=== PATIENT | female | born 1970 | race Caucasian/White ===

== ENCOUNTER → 2024-01-29 | Outpatient (CLI) | payer SELFPAY ==
[2024-01-29 12:31] LABS: Erythrocyte Sedimentation Rate 66 mm/hr (0-30)
[2024-01-29 12:40] LABS: Absolute Lymphocyte Count 2.35 X10^3/uL (0.83-4.51); Absolute Neutrophil Count 4.9 X10^3/uL (2.0-7.7); Basophil# 0.03 X10^3/uL; Basophil% 0.4 % (0-1); Eosinophil# 0.04 X10^3/uL; Eosinophils% 0.5 % (0-5); Hematocrit 37.3 % (37-47); Hemoglobin 11.7 g/dL (12.0-15.0); Lymphocyte # 2.35 X10^3/ul (0.83-4.51); Lymphocyte % 29.4 % (19-41); Mean Corp Hgb Conc 31.4 g/dL (32-36); Mean Corpuscular Hgb 25.9 pg (27.0-32.0); Mean Corpuscular Volume 82.7 fL (81-99); Mean Platelet Vol. 8.7 fl (6.2-12.0); Monocyte# 0.63 X10^3/uL; Monocyte% 7.9 % (0-10); NRBC Flagged by Analyzer 0 % (0-5); Neutrophil % 61.4 % (47-70); Platelet Count 384 K/mm3 (150-450); RBC Distribution Width SD 45.5 fl (35.1-43.9); RET-HE 29.1 pg (30-35); Red Blood Count 4.51 M/mm3 (4.2-5.4); Reticulocyte Count 1.67 % (0.5-1.5)
[2024-01-29 14:24] LABS: ALB/GLOB Ratio 0.5 RATIO (0.9-2.4); AST(SGOT) 39 U/L (15-37); Alanine Aminotransfer ALT/SGPT 62 U/L (13-56); Albumin, Serum 2.9 g/dL (3.2-5.0); Alkaline Phosphatase 104 U/L (45-117); Anion Gap 7 (5-15); BUN 14 mg/dL (7-18); BUN/Creat Ratio 22.7 RATIO (10-20); Calcium,Total 9.6 mg/dL (8.5-10.1); Chloride 106 mmol/L (98-107); Creatinine, Serum 0.62 mg/dL (0.55-1.02); EST Glomerular Filtration Rate 108 mL/min (>60); Est Glom Filt Rate - Afr Amer 131 mL/min (>60); Globulin 6.2 g/dL (2.2-4.2); Glucose 104 mg/dL (74-106); LDH 145 U/L (84-246); Potassium 4.3 mmol/L (3.5-5.1); Protein, Total 9.1 g/dL (6.4-8.2); Rheumatoid Factor < 10.0 IU/mL (<15); Sodium Level 138 mmol/L (136-145)
[2024-01-30 12:09] LABS: CCP IgG Antibodies 7 units (0-19)
[2024-01-30 15:08] LABS: ANTINUCLEAR ANTIBODIES DIRECT Positive (Negative)
== END | disposition home or self-care (01) ==
PROVIDERS: PCP Family Medicine; Referring Provider Internal Medicine Rheumatology; Visit Provider Internal Medicine Rheumatology
DX: R70.0 Elevated erythrocyte sedimentation rate (principal); D50.9 Iron deficiency anemia, unspecified; K21.9 Gastro-esophageal reflux disease without esophagitis; I83.93 Asymptomatic varicose veins of bilateral lower extremities; Z87.19 Personal history of other diseases of the digestive system
CPT/HCPCS: 36415; 80053; 83615; 85025; 85045; 85652; 86038; 86140; 86200; 86431

== ENCOUNTER 2024-11-28 14:13 | Inpatient (IN) | payer OTHER, SELFPAY ==
[2024-11-28] VITALS (36 sets, daily range): BP systolic 83–114; BP diastolic 44–81; PULSE 74–186; RESP 16–36; TEMP 36–39.6; O2SAT 92–100; BMI 30.2; BMI 35.3
--- NOTE | 2024-11-28 14:29 | RAD_ITS ---
EXAM: XR Chest, 1 View CLINICAL INDICATION: COUGH TECHNIQUE: Frontal view of the chest. COMPARISON: No relevant prior studies available. FINDINGS: LUNGS AND PLEURAL SPACES: Unremarkable. No consolidation. No pneumothorax. HEART: Cardiomegaly without overt failure. MEDIASTINUM: Unremarkable. Normal mediastinal contour. BONES/JOINTS: Unremarkable. No acute fracture. RAD/Chest 1 View (Portable) IMPRESSION: Cardiomegaly without overt failure. Reading Location: [facility]
[2024-11-28] MEDS: Adenosine 6 MG/2 ML Syringe IV (14:41)
[2024-11-28] MEDS: 0.9% Normal Saline (1000mL) 1,000 ML 999 ML IV ×3 (14:42→16:52)
[2024-11-28] MEDS: Adenosine 6 MG/2 ML Syringe 12 MG IV ×2 (14:43→14:46)
[2024-11-28] MEDS: Acetaminophen 325 MG Tablet 650 MG PO (14:47)
--- NOTE | 2024-11-28 14:48 | EDS_ITS ---
HPI <Daniel Tyler MD - Last Filed: 11/29/24 23:46> History of Present Illness Chief Complaint: Palpitations Narrative Narrative: 54-year-old female who denies significant past medical history presents with multiple somatic complaints. She states she has not been feeling well for the last few weeks. She has occasional lightheadedness. No chest pain, no shortness of breath. She did note that today she started feeling heart palpitations and a racing heartbeat. She denies any dysuria or hematuria. She has had an occasional cough as well. It was today that she started experiencing fever and chills which brought her to the emergency department. PFSH <Daniel Tyler MD - Last Filed: 11/29/24 23:46> PFSH Medical History Hysterectomy planned Medical History no medical history Home Medications ?Medication ?Instructions ?Recorded ?Last Taken ?Type NK 11/28/24 Unknown History Allergy/AdvReac Type Severity Reaction Status Date / Time Sulfa (Sulfonamide Allergy Anaphylaxis Verified 11/28/24 14:20 Antibiotics) Family History Father Hypertension Brother Advanced cirrhosis of liver Family History no significant family his Social History household members: spouse and children housing: house Smoking Status: Never smoker ROS <Daniel Tyler MD - Last Filed: 11/29/24 23:46> ROS ED ROS Narrative Review of systems positive for heart palpitations starting today. Generalized malaise and fatigue with lightheadedness intermittently over the last few weeks. No chest pain. Occasional cough. No shortness of breath. No leg swelling. No dysuria or hematuria. EXAM <Daniel Tyler MD - Last Filed: 11/29/24 23:46> Physical Exam Narrative Exam Narrative: Positive fever, temperature elevated 103.2 ?F. Nontoxic-appearing. C ardiovascular examination reveals a regular tachycardia. Lungs are clear to auscultation bilaterally. Abdomen soft and nontender with normoactive bowel sounds. No guarding or rebound. Neurological examination nonfocal nonlateralizing. No pedal edema. Const Vital Signs: 11/28/24 14:14 11/28/24 14:20 11/28/24 14:20 Temperature 103.2 F H Temperature Source Oral Pulse Rate 186 H 185 H Pulse Rate [1 (Initial Baseline)] Pulse Rate [2] Pulse Rate [3] Pulse Rate [4] Pulse Rate [5] Pulse Rate [6] Respiratory Rate 36 H 31 H Respiratory Rate [1 (Initial Baseline)] Respiratory Rate [2] Respiratory Rate [3] Respiratory Rate [4] Respiratory Rate [5] Respiratory Rate [6] Respiratory Effort Normal Non-Labored Blood Pressure 83/58 L 94/58 L Blood Pressure [1 (Initial Baseline)] Blood Pressure [2] Blood Pressure [3] Blood Pressure [4] Blood Pressure [5] Blood Pressure [6] Blood Pressure Mean 66 70 Baseline BP Pulse Ox 92 93 Oxygen Delivery Method Room Air Oxygen Delivery Method [1 (Initial Baseline)] Oxygen Delivery Method [2] Oxygen Delivery Method [3] Oxygen Delivery Method [4] Oxygen Delivery Method [5] Oxygen Delivery Method [6] Oxygen Flow Rate (L/min) Oxygen Flow Rate (L/min) [1 (Initial Baseline)] Oxygen Flow Rate (L/min) [2] Oxygen Flow Rate (L/min) [3] Oxygen Flow Rate (L/min) [4] EtCo2 (Normal 35-45 , high quality CPR 10-20 & ROSC>/=40mmHg EtCo2 (Normal 35-45 , high quality CPR 10-20 & ROSC>/=40mmHg [1 (Initial Baseline)] EtCo2 (Normal 35-45 , high quality CPR 10-20 & ROSC>/=40mmHg [2] EtCo2 (Normal 35-45 , high quality CPR 10-20 & ROSC>/=40mmHg [3] EtCo2 (Normal 35-45 , high quality CPR 10-20 & ROSC>/=40mmHg [4] EtCo2 (Normal 35-45 , high quality CPR 10-20 & ROSC>/=40mmHg [5] EtCo2 (Normal 35-45 , high quality CPR 10-20 & ROSC>/=40mmHg [6] 11/28/24 14:40 11/28/24 14:41 11/28/24 14:59 Temperature Temperature Source Pulse Rate 144 H 144 H Pulse Rate [1 (Initial Baseline)] Pulse Rate [2] Pulse Rate [3] Pulse Rate [4] Pulse Rate [5] Pulse Rate [6] Respiratory Rate 25 H 23 H Respiratory Rate [1 (Initial Baseline)] Respiratory Rate [2] Respiratory Rate [3] Respiratory Rate [4] Respiratory Rate [5] Respiratory Rate [6] Respiratory Effort Blood Pressure 92/44 L 92/49 L Blood Pressure [1 (Initial Baseline)] Blood Pressure [2] Blood Pressure [3] Blood Pressure [4] Blood Pressure [5] Blood Pressure [6] Blood Pressure Mean 60 63 Baseline BP Pulse Ox 95 96 96 Oxygen Delivery Method Room Air Room Air Room Air Oxygen Delivery Method [1 (Initial Baseline)] Oxygen Delivery Method [2] Oxygen Delivery Method [3] Oxygen Delivery Method [4] Oxygen Delivery Method [5] Oxygen Delivery Method [6] Oxygen Flow Rate (L/min) Oxygen Flow Rate (L/min) [1 (Initial Baseline)] Oxygen Flow Rate (L/min) [2] Oxygen Flow Rate (L/min) [3] Oxygen Flow Rate (L/min) [4] EtCo2 (Normal 35-45 , high quality CPR 10-20 & ROSC>/=40mmHg EtCo2 (Normal 35-45 , high quality CPR 10-20 & ROSC>/=40mmHg [1 (Initial Baseline)] EtCo2 (Normal 35-45 , high quality CPR 10-20 & ROSC>/=40mmHg [2] EtCo2 (Normal 35-45 , high quality CPR 10-20 & ROSC>/=40mmHg [3] EtCo2 (Normal 35-45 , high quality CPR 10-20 & ROSC>/=40mmHg [4] EtCo2 (Normal 35-45 , high quality CPR 10-20 & ROSC>/=40mmHg [5] EtCo2 (Normal 35-45 , high quality CPR 10-20 & ROSC>/=40mmHg [6] 11/28/24 15:14 11/28/24 15:40 11/28/24 15:55 Temperature Temperature Source Pulse Rate 143 H 136 H 140 H Pulse Rate [1 (Initial Baseline)] Pulse Rate [2] Pulse Rate [3] Pulse Rate [4] Pulse Rate [5] Pulse Rate [6] Respiratory Rate 21 H 20 H Respiratory Rate [1 (Initial Baseline)] Respiratory Rate [2] Respiratory Rate [3] Respiratory Rate [4] Respiratory Rate [5] Respiratory Rate [6] Respiratory Effort Blood Pressure 90/61 95/54 L 99/59 L Blood Pressure [1 (Initial Baseline)] Blood Pressure [2] Blood Pressure [3] Blood Pressure [4] Blood Pressure [5] Blood Pressure [6] Blood Pressure Mean 70 67 72 Baseline BP Pulse Ox 96 97 Oxygen Delivery Method Room Air Room Air Oxygen Delivery Method [1 (Initial Baseline)] Oxygen Delivery Method [2] Oxygen Delivery Method [3] Oxygen Delivery Method [4] Oxygen Delivery Method [5] Oxygen Delivery Method [6] Oxygen Flow Rate (L/min) Oxygen Flow Rate (L/min) [1 (Initial Baseline)] Oxygen Flow Rate (L/min) [2] Oxygen Flow Rate (L/min) [3] Oxygen Flow Rate (L/min) [4] EtCo2 (Normal 35-45 , high quality CPR 10-20 & ROSC>/=40mmHg EtCo2 (Normal 35-45 , high quality CPR 10-20 & ROSC>/=40mmHg [1 (Initial Baseline)] EtCo2 (Normal 35-45 , high quality CPR 10-20 & ROSC>/=40mmHg [2] EtCo2 (Normal 35-45 , high quality CPR 10-20 & ROSC>/=40mmHg [3] EtCo2 (Normal 35-45 , high quality CPR 10-20 & ROSC>/=40mmHg [4] EtCo2 (Normal 35-45 , high quality CPR 10-20 & ROSC>/=40mmHg [5] EtCo2 (Normal 35-45 , high quality CPR 10-20 & ROSC>/=40mmHg [6] 11/28/24 16:00 11/28/24 17:00 11/28/24 17:09 Temperature 99.3 F H Temperature Source Pulse Rate 138 H 126 H 126 H Pulse Rate [1 (Initial Baseline)] Pulse Rate [2] Pulse Rate [3] Pulse Rate [4] Pulse Rate [5] Pulse Rate [6] Respiratory Rate 29 H 26 H 26 H Respiratory Rate [1 (Initial Baseline)] Respiratory Rate [2] Respiratory Rate [3] Respiratory Rate [4] Respiratory Rate [5] Respiratory Rate [6] Respiratory Effort Blood Pressure 98/57 L 84/53 L 84/53 L Blood Pressure [1 (Initial Baseline)] Blood Pressure [2] Blood Pressure [3] Blood Pressure [4] Blood Pressure [5] Blood Pressure [6] Blood Pressure Mean 70 63 63 Baseline BP Pulse Ox 96 98 98 Oxygen Delivery Method Oxygen Delivery Method [1 (Initial Baseline)] Oxygen Delivery Method [2] Oxygen Delivery Method [3] Oxygen Delivery Method [4] Oxygen Delivery Method [5] Oxygen Delivery Method [6] Oxygen Flow Rate (L/min) Oxygen Flow Rate (L/min) [1 (Initial Baseline)] Oxygen Flow Rate (L/min) [2] Oxygen Flow Rate (L/min) [3] Oxygen Flow Rate (L/min) [4] EtCo2 (Normal 35-45 , high quality CPR 10-20 & ROSC>/=40mmHg EtCo2 (Normal 35-45 , high quality CPR 10-20 & ROSC>/=40mmHg [1 (Initial Baseline)] EtCo2 (Normal 35-45 , high quality CPR 10-20 & ROSC>/=40mmHg [2] EtCo2 (Normal 35-45 , high quality CPR 10-20 & ROSC>/=40mmHg [3] EtCo2 (Normal 35-45 , high quality CPR 10-20 & ROSC>/=40mmHg [4] EtCo2 (Normal 35-45 , high quality CPR 10-20 & ROSC>/=40mmHg [5] EtCo2 (Normal 35-45 , high quality CPR 10-20 & ROSC>/=40mmHg [6] 11/28/24 17:10 11/28/24 17:35 11/28/24 17:36 Temperature 99.3 F H 99.3 F H Temperature Source Oral Pulse Rate 126 H 133 H Pulse Rate [1 (Initial Baseline)] 133 H Pulse Rate [2] 96 Pulse Rate [3] 95 Pulse Rate [4] 92 Pulse Rate [5] 82 Pulse Rate [6] 94 Respiratory Rate 26 H 16 Respiratory Rate [1 (Initial Baseline)] 16 Respiratory Rate [2] 21 H Respiratory Rate [3] 24 H Respiratory Rate [4] 22 H Respiratory Rate [5] 24 H Respiratory Rate [6] 20 H Respiratory Effort Blood Pressure 84/53 L 97/70 Blood Pressure [1 (Initial Baseline)] 97/70 Blood Pressure [2] 103/72 Blood Pressure [3] 99/71 Blood Pressure [4] 90/68 Blood Pressure [5] 93/63 Blood Pressure [6] 102/73 Blood Pressure Mean 63 Baseline BP 97/70 Pulse Ox 98 100 Oxygen Delivery Method Room Air Nasal Cannula Oxygen Delivery Method [1 (Initial Baseline)] Nasal Cannula Oxygen Delivery Method [2] Nasal Cannula Oxygen Delivery Method [3] Nasal Cannula Oxygen Delivery Method [4] Nasal Cannula Oxygen Delivery Method [5] Room Air Oxygen Delivery Method [6] Room Air Oxygen Flow Rate (L/min) 2 Oxygen Flow Rate (L/min) [1 (Initial Baseline)] 2 Oxygen Flow Rate (L/min) [2] 2 Oxygen Flow Rate (L/min) [3] 2 Oxygen Flow Rate (L/min) [4] 2 EtCo2 (Normal 35-45 , high quality CPR 10-20 & ROSC>/=40mmHg 18 EtCo2 (Normal 35-45 , high quality CPR 10-20 & ROSC>/=40mmHg [1 (Initial Baseline)] 18 EtCo2 (Normal 35-45 , high quality CPR 10-20 & ROSC>/=40mmHg [2] 30 EtCo2 (Normal 35-45 , high quality CPR 10-20 & ROSC>/=40mmHg [3] 28 EtCo2 (Normal 35-45 , high quality CPR 10-20 & ROSC>/=40mmHg [4] 29 EtCo2 (Normal 35-45 , high quality CPR 10-20 & ROSC>/=40mmHg [5] 29 EtCo2 (Normal 35-45 , high quality CPR 10-20 & ROSC>/=40mmHg [6] 28 11/28/24 18:00 11/28/24 18:06 11/28/24 18:10 Temperature Temperature Source Pulse Rate 92 91 87 Pulse Rate [1 (Initial Baseline)] Pulse Rate [2] Pulse Rate [3] Pulse Rate [4] Pulse Rate [5] Pulse Rate [6] Respiratory Rate 22 H 23 H 21 H Respiratory Rate [1 (Initial Baseline)] Respiratory Rate [2] Respiratory Rate [3] Respiratory Rate [4] Respiratory Rate [5] Respiratory Rate [6] Respiratory Effort Blood Pressure 94/68 94/68 98/68 Blood Pressure [1 (Initial Baseline)] Blood Pressure [2] Blood Pressure [3] Blood Pressure [4] Blood Pressure [5] Blood Pressure [6] Blood Pressure Mean 76 Baseline BP Pulse Ox 98 98 100 Oxygen Delivery Method Room Air Room Air Oxygen Delivery Method [1 (Initial Baseline)] Oxygen Delivery Method [2] Oxygen Delivery Method [3] Oxygen Delivery Method [4] Oxygen Delivery Method [5] Oxygen Delivery Method [6] Oxygen Flow Rate (L/min) Oxygen Flow Rate (L/min) [1 (Initial Baseline)] Oxygen Flow Rate (L/min) [2] Oxygen Flow Rate (L/min) [3] Oxygen Flow Rate (L/min) [4] EtCo2 (Normal 35-45 , high quality CPR 10-20 & ROSC>/=40mmHg 28 24 EtCo2 (Normal 35-45 , high quality CPR 10-20 & ROSC>/=40mmHg [1 (Initial Baseline)] EtCo2 (Normal 35-45 , high quality CPR 10-20 & ROSC>/=40mmHg [2] EtCo2 (Normal 35-45 , high quality CPR 10-20 & ROSC>/=40mmHg [3] EtCo2 (Normal 35-45 , high quality CPR 10-20 & ROSC>/=40mmHg [4] EtCo2 (Normal 35-45 , high quality CPR 10-20 & ROSC>/=40mmHg [5] EtCo2 (Normal 35-45 , high quality CPR 10-20 & ROSC>/=40mmHg [6] 11/28/24 18:14 11/28/24 18:15 11/28/24 18:29 Temperature 99.3 F H 98.1 F Temperature Source Oral Oral Pulse Rate 96 97 92 Pulse Rate [1 (Initial Baseline)] Pulse Rate [2] Pulse Rate [3] Pulse Rate [4] Pulse Rate [5] Pulse Rate [6] Respiratory Rate 22 H 21 H 18 Respiratory Rate [1 (Initial Baseline)] Respiratory Rate [2] Respiratory Rate [3] Respiratory Rate [4] Respiratory Rate [5] Respiratory Rate [6] Respiratory Effort Blood Pressure 98/68 103/76 85/67 L Blood Pressure [1 (Initial Baseline)] Blood Pressure [2] Blood Pressure [3] Blood Pressure [4] Blood Pressure [5] Blood Pressure [6] Blood Pressure Mean 78 73 Baseline BP Pulse Ox 98 98 98 Oxygen Delivery Method Room Air Room Air Room Air Oxygen Delivery Method [1 (Initial Baseline)] Oxygen Delivery Method [2] Oxygen Delivery Method [3] Oxygen Delivery Method [4] Oxygen Delivery Method [5] Oxygen Delivery Method [6] Oxygen Flow Rate (L/min) Oxygen Flow Rate (L/min) [1 (Initial Baseline)] Oxygen Flow Rate (L/min) [2] Oxygen Flow Rate (L/min) [3] Oxygen Flow Rate (L/min) [4] EtCo2 (Normal 35-45 , high quality CPR 10-20 & ROSC>/=40mmHg 33 EtCo2 (Normal 35-45 , high quality CPR 10-20 & ROSC>/=40mmHg [1 (Initial Baseline)] EtCo2 (Normal 35-45 , high quality CPR 10-20 & ROSC>/=40mmHg [2] EtCo2 (Normal 35-45 , high quality CPR 10-20 & ROSC>/=40mmHg [3] EtCo2 (Normal 35-45 , high quality CPR 10-20 & ROSC>/=40mmHg [4] EtCo2 (Normal 35-45 , high quality CPR 10-20 & ROSC>/=40mmHg [5] EtCo2 (Normal 35-45 , high quality CPR 10-20 & ROSC>/=40mmHg [6] 11/28/24 18:43 11/28/24 18:44 11/28/24 18:59 Temperature 98.1 F 98.1 F Temperature Source Oral Oral Pulse Rate 91 83 82 Pulse Rate [1 (Initial Baseline)] Pulse Rate [2] Pulse Rate [3] Pulse Rate [4] Pulse Rate [5] Pulse Rate [6] Respiratory Rate 24 H 25 H 21 H Respiratory Rate [1 (Initial Baseline)] Respiratory Rate [2] Respiratory Rate [3] Respiratory Rate [4] Respiratory Rate [5] Respiratory Rate [6] Respiratory Effort Blood Pressure 114/81 H 91/59 L 83/59 L Blood Pressure [1 (Initial Baseline)] Blood Pressure [2] Blood Pressure [3] Blood Pressure [4] Blood Pressure [5] Blood Pressure [6] Blood Pressure Mean 92 69 67 Baseline BP Pulse Ox 98 99 99 Oxygen Delivery Method Room Air Room Air Oxygen Delivery Method [1 (Initial Baseline)] Oxygen Delivery Method [2] Oxygen Delivery Method [3] Oxygen Delivery Method [4] Oxygen Delivery Method [5] Oxygen Delivery Method [6] Oxygen Flow Rate (L/min) Oxygen Flow Rate (L/min) [1 (Initial Baseline)] Oxygen Flow Rate (L/min) [2] Oxygen Flow Rate (L/min) [3] Oxygen Flow Rate (L/min) [4] EtCo2 (Normal 35-45 , high quality CPR 10-20 & ROSC>/=40mmHg EtCo2 (Normal 35-45 , high quality CPR 10-20 & ROSC>/=40mmHg [1 (Initial Baseline)] EtCo2 (Normal 35-45 , high quality CPR 10-20 & ROSC>/=40mmHg [2] EtCo2 (Normal 35-45 , high quality CPR 10-20 & ROSC>/=40mmHg [3] EtCo2 (Normal 35-45 , high quality CPR 10-20 & ROSC>/=40mmHg [4] EtCo2 (Normal 35-45 , high quality CPR 10-20 & ROSC>/=40mmHg [5] EtCo2 (Normal 35-45 , high quality CPR 10-20 & ROSC>/=40mmHg [6] 11/28/24 19:00 Temperature Temperature Source Pulse Rate 84 Pulse Rate [1 (Initial Baseline)] Pulse Rate [2] Pulse Rate [3] Pulse Rate [4] Pulse Rate [5] Pulse Rate [6] Respiratory Rate 18 Respiratory Rate [1 (Initial Baseline)] Respiratory Rate [2] Respiratory Rate [3] Respiratory Rate [4] Respiratory Rate [5] Respiratory Rate [6] Respiratory Effort Blood Pressure 84/58 L Blood Pressure [1 (Initial Baseline)] Blood Pressure [2] Blood Pressure [3] Blood Pressure [4] Blood Pressure [5] Blood Pressure [6] Blood Pressure Mean 66 Baseline BP Pulse Ox 98 Oxygen Delivery Method Room Air Oxygen Delivery Method [1 (Initial Baseline)] Oxygen Delivery Method [2] Oxygen Delivery Method [3] Oxygen Delivery Method [4] Oxygen Delivery Method [5] Oxygen Delivery Method [6] Oxygen Flow Rate (L/min) Oxygen Flow Rate (L/min) [1 (Initial Baseline)] Oxygen Flow Rate (L/min) [2] Oxygen Flow Rate (L/min) [3] Oxygen Flow Rate (L/min) [4] EtCo2 (Normal 35-45 , high quality CPR 10-20 & ROSC>/=40mmHg EtCo2 (Normal 35-45 , high quality CPR 10-20 & ROSC>/=40mmHg [1 (Initial Baseline)] EtCo2 (Normal 35-45 , high quality CPR 10-20 & ROSC>/=40mmHg [2] EtCo2 (Normal 35-45 , high quality CPR 10-20 & ROSC>/=40mmHg [3] EtCo2 (Normal 35-45 , high quality CPR 10-20 & ROSC>/=40mmHg [4] EtCo2 (Normal 35-45 , high quality CPR 10-20 & ROSC>/=40mmHg [5] EtCo2 (Normal 35-45 , high quality CPR 10-20 & ROSC>/=40mmHg [6] <Dr. Garland Navarrete, DO - Last Filed: 11/28/24 23:08> Physical Exam Const Vital Signs: 11/28/24 14:14 11/28/24 14:20 11/28/24 14:20 Temperature 103.2 F H Temperature Source Oral Pulse Rate 186 H 185 H Pulse Rate [1 (Initial Baseline)] Pulse Rate [2] Pulse Rate [3] Pulse Rate [4] Pulse Rate [5] Pulse Rate [6] Respiratory Rate 36 H 31 H Respiratory Rate [1 (Initial Baseline)] Respiratory Rate [2] Respiratory Rate [3] Respiratory Rate [4] Respiratory Rate [5] Respiratory Rate [6] Respiratory Effort Normal Non-Labored Blood Pressure 83/58 L 94/58 L Blood Pressure [1 (Initial Baseline)] Blood Pressure [2] Blood Pressure [3] Blood Pressure [4] Blood Pressure [5] Blood Pressure [6] Blood Pressure Mean 66 70 Baseline BP Pulse Ox 92 93 Oxygen Delivery Method Room Air Oxygen Delivery Method [1 (Initial Baseline)] Oxygen Delivery Method [2] Oxygen Delivery Method [3] Oxygen Delivery Method [4] Oxygen Delivery Method [5] Oxygen Delivery Method [6] Oxygen Flow Rate (L/min) Oxygen Flow Rate (L/min) [1 (Initial Baseline)] Oxygen Flow Rate (L/min) [2] Oxygen Flow Rate (L/min) [3] Oxygen Flow Rate (L/min) [4] EtCo2 (Normal 35-45 , high quality CPR 10-20 & ROSC>/=40mmHg EtCo2 (Normal 35-45 , high quality CPR 10-20 & ROSC>/=40mmHg [1 (Initial Baseline)] EtCo2 (Normal 35-45 , high quality CPR 10-20 & ROSC>/=40mmHg [2] EtCo2 (Normal 35-45 , high quality CPR 10-20 & ROSC>/=40mmHg [3] EtCo2 (Normal 35-45 , high quality CPR 10-20 & ROSC>/=40mmHg [4] EtCo2 (Normal 35-45 , high quality CPR 10-20 & ROSC>/=40mmHg [5] EtCo2 (Normal 35-45 , high quality CPR 10-20 & ROSC>/=40mmHg [6] 11/28/24 14:40 11/28/24 14:41 11/28/24 14:59 Temperature Temperature Source Pulse Rate 144 H 144 H Pulse Rate [1 (Initial Baseline)] Pulse Rate [2] Pulse Rate [3] Pulse Rate [4] Pulse Rate [5] Pulse Rate [6] Respiratory Rate 25 H 23 H Respiratory Rate [1 (Initial Baseline)] Respiratory Rate [2] Respiratory Rate [3] Respiratory Rate [4] Respiratory Rate [5] Respiratory Rate [6] Respiratory Effort Blood Pressure 92/44 L 92/49 L Blood Pressure [1 (Initial Baseline)] Blood Pressure [2] Blood Pressure [3] Blood Pressure [4] Blood Pressure [5] Blood Pressure [6] Blood Pressure Mean 60 63 Baseline BP Pulse Ox 95 96 96 Oxygen Delivery Method Room Air Room Air Room Air Oxygen Delivery Method [1 (Initial Baseline)] Oxygen Delivery Method [2] Oxygen Delivery Method [3] Oxygen Delivery Method [4] Oxygen Delivery Method [5] Oxygen Delivery Method [6] Oxygen Flow Rate (L/min) Oxygen Flow Rate (L/min) [1 (Initial Baseline)] Oxygen Flow Rate (L/min) [2] Oxygen Flow Rate (L/min) [3] Oxygen Flow Rate (L/min) [4] EtCo2 (Normal 35-45 , high quality CPR 10-20 & ROSC>/=40mmHg EtCo2 (Normal 35-45 , high quality CPR 10-20 & ROSC>/=40mmHg [1 (Initial Baseline)] EtCo2 (Normal 35-45 , high quality CPR 10-20 & ROSC>/=40mmHg [2] EtCo2 (Normal 35-45 , high quality CPR 10-20 & ROSC>/=40mmHg [3] EtCo2 (Normal 35-45 , high quality CPR 10-20 & ROSC>/=40mmHg [4] EtCo2 (Normal 35-45 , high quality CPR 10-20 & ROSC>/=40mmHg [5] EtCo2 (Normal 35-45 , high quality CPR 10-20 & ROSC>/=40mmHg [6] 11/28/24 15:14 11/28/24 15:40 11/28/24 15:55 Temperature Temperature Source Pulse Rate 143 H 136 H 140 H Pulse Rate [1 (Initial Baseline)] Pulse Rate [2] Pulse Rate [3] Pulse Rate [4] Pulse Rate [5] Pulse Rate [6] Respiratory Rate 21 H 20 H Respiratory Rate [1 (Initial Baseline)] Respiratory Rate [2] Respiratory Rate [3] Respiratory Rate [4] Respiratory Rate [5] Respiratory Rate [6] Respiratory Effort Blood Pressure 90/61 95/54 L 99/59 L Blood Pressure [1 (Initial Baseline)] Blood Pressure [2] Blood Pressure [3] Blood Pressure [4] Blood Pressure [5] Blood Pressure [6] Blood Pressure Mean 70 67 72 Baseline BP Pulse Ox 96 97 Oxygen Delivery Method Room Air Room Air Oxygen Delivery Method [1 (Initial Baseline)] Oxygen Delivery Method [2] Oxygen Delivery Method [3] Oxygen Delivery Method [4] Oxygen Delivery Method [5] Oxygen Delivery Method [6] Oxygen Flow Rate (L/min) Oxygen Flow Rate (L/min) [1 (Initial Baseline)] Oxygen Flow Rate (L/min) [2] Oxygen Flow Rate (L/min) [3] Oxygen Flow Rate (L/min) [4] EtCo2 (Normal 35-45 , high quality CPR 10-20 & ROSC>/=40mmHg EtCo2 (Normal 35-45 , high quality CPR 10-20 & ROSC>/=40mmHg [1 (Initial Baseline)] EtCo2 (Normal 35-45 , high quality CPR 10-20 & ROSC>/=40mmHg [2] EtCo2 (Normal 35-45 , high quality CPR 10-20 & ROSC>/=40mmHg [3] EtCo2 (Normal 35-45 , high quality CPR 10-20 & ROSC>/=40mmHg [4] EtCo2 (Normal 35-45 , high quality CPR 10-20 & ROSC>/=40mmHg [5] EtCo2 (Normal 35-45 , high quality CPR 10-20 & ROSC>/=40mmHg [6] 11/28/24 16:00 11/28/24 17:00 11/28/24 17:09 Temperature 99.3 F H Temperature Source Pulse Rate 138 H 126 H 126 H Pulse Rate [1 (Initial Baseline)] Pulse Rate [2] Pulse Rate [3] Pulse Rate [4] Pulse Rate [5] Pulse Rate [6] Respiratory Rate 29 H 26 H 26 H Respiratory Rate [1 (Initial Baseline)] Respiratory Rate [2] Respiratory Rate [3] Respiratory Rate [4] Respiratory Rate [5] Respiratory Rate [6] Respiratory Effort Blood Pressure 98/57 L 84/53 L 84/53 L Blood Pressure [1 (Initial Baseline)] Blood Pressure [2] Blood Pressure [3] Blood Pressure [4] Blood Pressure [5] Blood Pressure [6] Blood Pressure Mean 70 63 63 Baseline BP Pulse Ox 96 98 98 Oxygen Delivery Method Oxygen Delivery Method [1 (Initial Baseline)] Oxygen Delivery Method [2] Oxygen Delivery Method [3] Oxygen Delivery Method [4] Oxygen Delivery Method [5] Oxygen Delivery Method [6] Oxygen Flow Rate (L/min) Oxygen Flow Rate (L/min) [1 (Initial Baseline)] Oxygen Flow Rate (L/min) [2] Oxygen Flow Rate (L/min) [3] Oxygen Flow Rate (L/min) [4] EtCo2 (Normal 35-45 , high quality CPR 10-20 & ROSC>/=40mmHg EtCo2 (Normal 35-45 , high quality CPR 10-20 & ROSC>/=40mmHg [1 (Initial Baseline)] EtCo2 (Normal 35-45 , high quality CPR 10-20 & ROSC>/=40mmHg [2] EtCo2 (Normal 35-45 , high quality CPR 10-20 & ROSC>/=40mmHg [3] EtCo2 (Normal 35-45 , high quality CPR 10-20 & ROSC>/=40mmHg [4] EtCo2 (Normal 35-45 , high quality CPR 10-20 & ROSC>/=40mmHg [5] EtCo2 (Normal 35-45 , high quality CPR 10-20 & ROSC>/=40mmHg [6] 11/28/24 17:10 11/28/24 17:35 11/28/24 17:36 Temperature 99.3 F H 99.3 F H Temperature Source Oral Pulse Rate 126 H 133 H Pulse Rate [1 (Initial Baseline)] 133 H Pulse Rate [2] 96 Pulse Rate [3] 95 Pulse Rate [4] 92 Pulse Rate [5] 82 Pulse Rate [6] 94 Respiratory Rate 26 H 16 Respiratory Rate [1 (Initial Baseline)] 16 Respiratory Rate [2] 21 H Respiratory Rate [3] 24 H Respiratory Rate [4] 22 H Respiratory Rate [5] 24 H Respiratory Rate [6] 20 H Respiratory Effort Blood Pressure 84/53 L 97/70 Blood Pressure [1 (Initial Baseline)] 97/70 Blood Pressure [2] 103/72 Blood Pressure [3] 99/71 Blood Pressure [4] 90/68 Blood Pressure [5] 93/63 Blood Pressure [6] 102/73 Blood Pressure Mean 63 Baseline BP 97/70 Pulse Ox 98 100 Oxygen Delivery Method Room Air Nasal Cannula Oxygen Delivery Method [1 (Initial Baseline)] Nasal Cannula Oxygen Delivery Method [2] Nasal Cannula Oxygen Delivery Method [3] Nasal Cannula Oxygen Delivery Method [4] Nasal Cannula Oxygen Delivery Method [5] Room Air Oxygen Delivery Method [6] Room Air Oxygen Flow Rate (L/min) 2 Oxygen Flow Rate (L/min) [1 (Initial Baseline)] 2 Oxygen Flow Rate (L/min) [2] 2 Oxygen Flow Rate (L/min) [3] 2 Oxygen Flow Rate (L/min) [4] 2 EtCo2 (Normal 35-45 , high quality CPR 10-20 & ROSC>/=40mmHg 18 EtCo2 (Normal 35-45 , high quality CPR 10-20 & ROSC>/=40mmHg [1 (Initial Baseline)] 18 EtCo2 (Normal 35-45 , high quality CPR 10-20 & ROSC>/=40mmHg [2] 30 EtCo2 (Normal 35-45 , high quality CPR 10-20 & ROSC>/=40mmHg [3] 28 EtCo2 (Normal 35-45 , high quality CPR 10-20 & ROSC>/=40mmHg [4] 29 EtCo2 (Normal 35-45 , high quality CPR 10-20 & ROSC>/=40mmHg [5] 29 EtCo2 (Normal 35-45 , high quality CPR 10-20 & ROSC>/=40mmHg [6] 28 11/28/24 18:00 11/28/24 18:06 11/28/24 18:10 Temperature Temperature Source Pulse Rate 92 91 87 Pulse Rate [1 (Initial Baseline)] Pulse Rate [2] Pulse Rate [3] Pulse Rate [4] Pulse Rate [5] Pulse Rate [6] Respiratory Rate 22 H 23 H 21 H Respiratory Rate [1 (Initial Baseline)] Respiratory Rate [2] Respiratory Rate [3] Respiratory Rate [4] Respiratory Rate [5] Respiratory Rate [6] Respiratory Effort Blood Pressure 94/68 94/68 98/68 Blood Pressure [1 (Initial Baseline)] Blood Pressure [2] Blood Pressure [3] Blood Pressure [4] Blood Pressure [5] Blood Pressure [6] Blood Pressure Mean 76 Baseline BP Pulse Ox 98 98 100 Oxygen Delivery Method Room Air Room Air Oxygen Delivery Method [1 (Initial Baseline)] Oxygen Delivery Method [2] Oxygen Delivery Method [3] Oxygen Delivery Method [4] Oxygen Delivery Method [5] Oxygen Delivery Method [6] Oxygen Flow Rate (L/min) Oxygen Flow Rate (L/min) [1 (Initial Baseline)] Oxygen Flow Rate (L/min) [2] Oxygen Flow Rate (L/min) [3] Oxygen Flow Rate (L/min) [4] EtCo2 (Normal 35-45 , high quality CPR 10-20 & ROSC>/=40mmHg 28 24 EtCo2 (Normal 35-45 , high quality CPR 10-20 & ROSC>/=40mmHg [1 (Initial Baseline)] EtCo2 (Normal 35-45 , high quality CPR 10-20 & ROSC>/=40mmHg [2] EtCo2 (Normal 35-45 , high quality CPR 10-20 & ROSC>/=40mmHg [3] EtCo2 (Normal 35-45 , high quality CPR 10-20 & ROSC>/=40mmHg [4] EtCo2 (Normal 35-45 , high quality CPR 10-20 & ROSC>/=40mmHg [5] EtCo2 (Normal 35-45 , high quality CPR 10-20 & ROSC>/=40mmHg [6] 11/28/24 18:14 11/28/24 18:15 11/28/24 18:29 Temperature 99.3 F H 98.1 F Temperature Source Oral Oral Pulse Rate 96 97 92 Pulse Rate [1 (Initial Baseline)] Pulse Rate [2] Pulse Rate [3] Pulse Rate [4] Pulse Rate [5] Pulse Rate [6] Respiratory Rate 22 H 21 H 18 Respiratory Rate [1 (Initial Baseline)] Respiratory Rate [2] Respiratory Rate [3] Respiratory Rate [4] Respiratory Rate [5] Respiratory Rate [6] Respiratory Effort Blood Pressure 98/68 103/76 85/67 L Blood Pressure [1 (Initial Baseline)] Blood Pressure [2] Blood Pressure [3] Blood Pressure [4] Blood Pressure [5] Blood Pressure [6] Blood Pressure Mean 78 73 Baseline BP Pulse Ox 98 98 98 Oxygen Delivery Method Room Air Room Air Room Air Oxygen Delivery Method [1 (Initial Baseline)] Oxygen Delivery Method [2] Oxygen Delivery Method [3] Oxygen Delivery Method [4] Oxygen Delivery Method [5] Oxygen Delivery Method [6] Oxygen Flow Rate (L/min) Oxygen Flow Rate (L/min) [1 (Initial Baseline)] Oxygen Flow Rate (L/min) [2] Oxygen Flow Rate (L/min) [3] Oxygen Flow Rate (L/min) [4] EtCo2 (Normal 35-45 , high quality CPR 10-20 & ROSC>/=40mmHg 33 EtCo2 (Normal 35-45 , high quality CPR 10-20 & ROSC>/=40mmHg [1 (Initial Baseline)] EtCo2 (Normal 35-45 , high quality CPR 10-20 & ROSC>/=40mmHg [2] EtCo2 (Normal 35-45 , high quality CPR 10-20 & ROSC>/=40mmHg [3] EtCo2 (Normal 35-45 , high quality CPR 10-20 & ROSC>/=40mmHg [4] EtCo2 (Normal 35-45 , high quality CPR 10-20 & ROSC>/=40mmHg [5] EtCo2 (Normal 35-45 , high quality CPR 10-20 & ROSC>/=40mmHg [6] 11/28/24 18:43 11/28/24 18:44 11/28/24 18:59 Temperature 98.1 F 98.1 F Temperature Source Oral Oral Pulse Rate 91 83 82 Pulse Rate [1 (Initial Baseline)] Pulse Rate [2] Pulse Rate [3] Pulse Rate [4] Pulse Rate [5] Pulse Rate [6] Respiratory Rate 24 H 25 H 21 H Respiratory Rate [1 (Initial Baseline)] Respiratory Rate [2] Respiratory Rate [3] Respiratory Rate [4] Respiratory Rate [5] Respiratory Rate [6] Respiratory Effort Blood Pressure 114/81 H 91/59 L 83/59 L Blood Pressure [1 (Initial Baseline)] Blood Pressure [2] Blood Pressure [3] Blood Pressure [4] Blood Pressure [5] Blood Pressure [6] Blood Pressure Mean 92 69 67 Baseline BP Pulse Ox 98 99 99 Oxygen Delivery Method Room Air Room Air Oxygen Delivery Method [1 (Initial Baseline)] Oxygen Delivery Method [2] Oxygen Delivery Method [3] Oxygen Delivery Method [4] Oxygen Delivery Method [5] Oxygen Delivery Method [6] Oxygen Flow Rate (L/min) Oxygen Flow Rate (L/min) [1 (Initial Baseline)] Oxygen Flow Rate (L/min) [2] Oxygen Flow Rate (L/min) [3] Oxygen Flow Rate (L/min) [4] EtCo2 (Normal 35-45 , high quality CPR 10-20 & ROSC>/=40mmHg EtCo2 (Normal 35-45 , high quality CPR 10-20 & ROSC>/=40mmHg [1 (Initial Baseline)] EtCo2 (Normal 35-45 , high quality CPR 10-20 & ROSC>/=40mmHg [2] EtCo2 (Normal 35-45 , high quality CPR 10-20 & ROSC>/=40mmHg [3] EtCo2 (Normal 35-45 , high quality CPR 10-20 & ROSC>/=40mmHg [4] EtCo2 (Normal 35-45 , high quality CPR 10-20 & ROSC>/=40mmHg [5] EtCo2 (Normal 35-45 , high quality CPR 10-20 & ROSC>/=40mmHg [6] 11/28/24 19:00 Temperature Temperature Source Pulse Rate 84 Pulse Rate [1 (Initial Baseline)] Pulse Rate [2] Pulse Rate [3] Pulse Rate [4] Pulse Rate [5] Pulse Rate [6] Respiratory Rate 18 Respiratory Rate [1 (Initial Baseline)] Respiratory Rate [2] Respiratory Rate [3] Respiratory Rate [4] Respiratory Rate [5] Respiratory Rate [6] Respiratory Effort Blood Pressure 84/58 L Blood Pressure [1 (Initial Baseline)] Blood Pressure [2] Blood Pressure [3] Blood Pressure [4] Blood Pressure [5] Blood Pressure [6] Blood Pressure Mean 66 Baseline BP Pulse Ox 98 Oxygen Delivery Method Room Air Oxygen Delivery Method [1 (Initial Baseline)] Oxygen Delivery Method [2] Oxygen Delivery Method [3] Oxygen Delivery Method [4] Oxygen Delivery Method [5] Oxygen Delivery Method [6] Oxygen Flow Rate (L/min) Oxygen Flow Rate (L/min) [1 (Initial Baseline)] Oxygen Flow Rate (L/min) [2] Oxygen Flow Rate (L/min) [3] Oxygen Flow Rate (L/min) [4] EtCo2 (Normal 35-45 , high quality CPR 10-20 & ROSC>/=40mmHg EtCo2 (Normal 35-45 , high quality CPR 10-20 & ROSC>/=40mmHg [1 (Initial Baseline)] EtCo2 (Normal 35-45 , high quality CPR 10-20 & ROSC>/=40mmHg [2] EtCo2 (Normal 35-45 , high quality CPR 10-20 & ROSC>/=40mmHg [3] EtCo2 (Normal 35-45 , high quality CPR 10-20 & ROSC>/=40mmHg [4] EtCo2 (Normal 35-45 , high quality CPR 10-20 & ROSC>/=40mmHg [5] EtCo2 (Normal 35-45 , high quality CPR 10-20 & ROSC>/=40mmHg [6] Sepsis Attestation <Daniel Tyler MD - Last Filed: 11/29/24 23:46> Sepsis Alert: Yes Sepsis Attestation: Agree w/Sepsis Date exam was performed: 11/28/24 Time exam was performed: 16:42 Possible Source of Sepsis: Unknown Sepsis Organ Dysfunction Criteria Present: SBP < 90 mmHg or MAP < 65 mmHg and Lactic Acid > 2 mmol/L Fluid Resuscitation Fluid resuscitation indicated?: Yes Fluid Resuscitation ordered: 30 ml/kg fluid bolus ordered MDM <Daniel Tyler MD - Last Filed: 11/29/24 23:46> [facility] Narrative Medical decision making narrative: Initial EKG was obtained and it shows supraventricular tachycardia. SVT is in the differential paroxysmally. Given her fever, concern is for sepsis secondary to UTI versus pneumonia versus viral infection. Her initial EKG interpreted by myself independently demonstrates supraventricular tachycardia [address] changes. QRS duration normal at 82 ms. Initially she was given 6 mg of adenosine intravenously after being placed on the pacer pads. Underlying rhythm was transiently normal sinus on the monitor. She received 2 additional doses of 12 mg and had temporarily reduction to as low as the 100 bpm which appeared normal sinus on the monitor, but currently is 144 beats per minute. Her blood pressure slightly improved as she was hypotensive initially. She will be bolused normal saline. Repeat EKG after adenosine shows on my independent interpretation supraventricular t achycardia [address] changes. No STEMI. I discussed patient with Dr. Jackson. In review of the EKGs, it was thought that maybe the second EKG is more atrial flutter with 2-1 block. I reviewed her laboratory work and she has a white count elevated at 18.3 with hemoglobin 11.5, hematocrit 33.9, platelet count 308. Coagulation studies are negative. Sodium low at 132 with normal chloride of 99, potassium 3.5. BUN of 21 and creatinine 0.81, glucose appropriately elevated at 143 with an anion gap of 15. LFTs are slightly elevated which I think is nonspecific, but may be from shock liver. High-sensitivity troponin is elevated at 124. I do feel that she may have been in tachycardia for longer than a day. She is not having chest pain. I discussed this with cardiology and heparinization is not suggested. Lactic acid is elevated at 2.7. Chest x-ray 1 view interpreted by myself independently shows no pneumonia or pneumothorax. I reviewed the radiology report which confirms my independent interpretation and comments on cardiomegaly without overt heart failure. Review of her respiratory swab shows she is negative for COVID, influenza, and RSV. In discussion with cardiology, it was suggested that she be given more fluids, and then additionally with her blood pressure being 99 systolic or close to 100, they would like Cardizem 10 mg given. If the patient has a significant drop in her blood pressure after Cardizem with no slowing of her heart rate, it was suggested that she should be cardioverted. Patient is more fluid responsive. Her heart rate is coming down to the 120's, but she remains hypotensive with a soft blood pressure ranging in the high 90s. While it has been as low as the 80s, she is asymptomatic, and she has an MAP of 64. Patient will be discussed with the hospitalist for admission to the ICU. I feel that with a pulse in the 120s, that given her hypotension the Cardizem should be held. I discussed patient with Dr. Xena Harris. Patient will be given fentanyl and ketamine and cardioverted. Once again, I do feel this is more of an emergent procedure. 200 J delivered during synchronized cardioversion. Resulting EKG after cardioversion demonstrates normal sinus rhythm at 94 bpm without ectopy or acute ST changes. No STEMI. I reviewed her repeat troponin as well and it is slightly elevated at 145. I had discussed the troponin initially with Dr. Jackson with cardiology and it was not felt that she should be heparinized. Patient tolerated procedure well. Disposition is admit to the ICU. Patient is in guarded condition. Update: While waiting to go to the ICU the patient valencia rate less than 65 nursing notified me of the potential need for central line because she has completed the IV fluid boluses. I assessed the patient and her pressures were borderline at that moment of a mean of around 70-65. Patient provided informed written consent for ultrasound-guided right IJ central line. Patient was prepped and u ltrasound was used to identify the internal jugular. Using the modified Seldinger technique a right IJ triple-lumen line was placed on the first attempt without any difficulty. Dark red nonpulsatile blood was obtained. Was sutured in place. Dressing applied. My independent interpretation of the post procedure films is no pneumothorax and adequate placement of the central line. No further bleeding from the site was noted. Line was approved for use. Hospitalist (Dr. Mcdaniel) was updated. History & Record Review Discussion w/independent historian: Patient Lab Data Attestation: I reviewed the patient's lab results. Labs: Laboratory Results - last 24 hr 11/28/24 11/28/24 14:25 16:28 WBC 18.3 H RBC 4.31 Hgb 11.5 L Hct 33.9 L MCV 78.7 L MCH 26.7 L MCHC 33.9 RDW Std Deviation 41.9 RDW Coeff of Marbin 14.6 Plt Count 308 MPV 8.5 Immature Gran % (Auto) 0.500 Neut % (Auto) 88.1 H Lymph % (Auto) 6.2 L [place] % (Auto) 4.9 Eos % (Auto) 0.1 Baso % (Auto) 0.2 Absolute Neuts (auto) 16.1 H Absolute Lymphs (auto) 1.14 Nucleated RBC % 0 PT 15.4 H INR 1.2 APTT 31.5 Sodium 132 L Potassium 3.5 Chloride 99 Carbon Dioxide 17.4 L Anion Gap 15 BUN 21 H Creatinine 0.81 Estim Creat Clear Calc 92.40 Est GFR (MDRD) Non-Af 87 BUN/Creatinine Ratio 26.0 H Glucose 143 H Lactic Acid 2.7 H* Calcium 9.0 Total Bilirubin 0.62 AST 47 H ALT 53 H Alkaline Phosphatase 128 H Troponin T High Sens 124 H* Troponin T Hi Sens 2 Hr 145 H* Total Protein 8.1 Albumin 3.5 Globulin 4.6 H Albumin/Globulin Ratio 0.8 L Urine Color Yellow Urine Clarity Clear Urine pH 6.0 Ur Specific [place] 1.010 Urine Protein 30 H Urine Glucose (UA) Normal Urine Ketones Negative Urine Occult Blood 25 H Urine Nitrite Negative Urine Bilirubin Negative Urine Urobilinogen Normal Ur Leukocyte Esterase 25 H Urine RBC 0-5 SEEN Urine WBC 0-5 SEEN Ur Squamous Epith Cells 0-5 SEEN Urine Bacteria 0 SEEN Hyaline Casts 0-5 SEEN Fine Granular Casts 0-5 SEEN Urine Mucus 0 SEEN Radiography Chest X-Ray - ED: 1 View, Read by ED Physician, Read by Radiologist and Cardiomegaly Diagnostic Testing: Clinical Impression(s) from Imaging Studies Chest X-Ray 11/28/24 14:29 IMPRESSION: Cardiomegaly without overt failure. Reading Location: [facility] Management Discussion w/another healthcare provider: Hospitalist and Diet Therapist (Dr. Jackson, cardiology) <Dr. Garland Navarrete, DO - Last Filed: 11/28/24 23:08> [facility] MDM Narrative Medical decision making narrative: Initial EKG was obtained and it shows supraventricular tachycardia. SVT is in the differential paroxysmally. Given her fever, concern is for sepsis secondary to UTI versus pneumonia versus viral infection. Her initial EKG interpreted by myself independently demonstrates supraventricular tachycardia [address] changes. QRS duration normal at 82 ms. Initially she was given 6 mg of adenosine intravenously after being placed on the pacer pads. Underlying rhythm was transiently normal sinus on the monitor. She received 2 additional doses of 12 mg and had temporarily reduction to as low as the 100 bpm which appeared normal sinus on the monitor, but currently is 144 beats per minute. Her blood pressure slightly improved as she was hypotensive initially. She will be bolused normal saline. Repeat EKG after adenosine shows on my independent interpretation supraventricular tachycardia [address] changes. No STEMI. I discussed patient with Dr. Jackson. In review of the EKGs, it was thought that maybe the second EKG is more atrial flutter with 2-1 block. I reviewed her laboratory work and she has a white count elevated at 18.3 with hemoglobin 11.5, hematocrit 33.9, platelet count 308. Coagulation studies are negative. Sodium low at 132 with normal chloride of 99, potassium 3.5. BUN of 21 and creatinine 0.81, glucose appropriately elevated at 143 with an anion gap of 15. LFTs are slightly elevated which I think is nonspecific, but may be from shock liver. High-sensitivity troponin is elevated at 124. I do feel that she may have been in tachycardia for longer than a day. She is not having chest pain. I discussed this with cardiology and heparinization is not suggested. Lactic acid is elevated at 2.7. Chest x-ray 1 view interpreted by myself independently shows no pneumonia or pneumothorax. I reviewed the radiology report which confirms my independent interpretation and comments on cardiomegaly without overt heart failure. Review of her respiratory swab shows she is negative for COVID, influenza, and RSV. In discussion with cardiology, it was suggested that she be given more fluids, and then additionally with her blood pressure being 99 systolic or close to 100, they would like Cardizem 10 mg given. If the patient has a significant drop in her blood pressure after Cardizem with no slowing of her heart rate, it was suggested that she should be cardioverted. Patient is more fluid responsive. Her heart rate is coming down to the 120's, but she remains hypotensive with a soft blood pressure ranging in the high 90s. While it has been as low as the 80s, she is asymptomatic, and she has an MAP of 64. Patient will be discussed with the hospitalist for admission to the ICU. I feel that with a pulse in the 120s, that given her hypotension the Cardizem should be held. I discussed patient with Dr. Xena Harris. Patient will be given fentanyl and ketamine and cardioverted. Resulting EKG after cardioversion demonstrates normal sinus rhythm at 94 bpm without ectopy or acute ST changes. No STEMI. Disposition is admit to the ICU. Patient is in guarded condition. Update: While waiting to go to the ICU the patient valencia rate less than 65 nursing notified me of the potential need for central line because she has completed the IV fluid boluses. I assessed the patient and her pressures were borderline at that moment of a mean of around 70-65. Patient provided informed written consent for ultrasound-guided right IJ central line. Patient was prepped and ultrasound was used to identify the internal jugular. Using the modified Seldinger technique a right IJ triple-lumen line was placed on the first attempt without any difficulty. Dark red nonpulsatile blood was obtained. Was sutured in place. Dressing applied. My independent interpretation of the post procedure films is no pneumothorax and adequate placement of the central line. No further bleeding from the site was noted. Line was approved for use. Hospitalist (Dr. Mcdaniel) was updated. Lab Data Labs: Laboratory Results - last 24 hr 11/28/24 11/28/24 14:25 16:28 WBC 18.3 H RBC 4.31 Hgb 11.5 L Hct 33.9 L MCV 78.7 L MCH 26.7 L MCHC 33.9 RDW Std Deviation 41.9 RDW Coeff of [place]bin 14.6 Plt Count 308 MPV 8.5 Immature Gran % (Auto) 0.500 Neut % (Auto) 88.1 H Lymph % (Auto) 6.2 L [place] % (Auto) 4.9 Eos % (Auto) 0.1 Baso % (Auto) 0.2 Absolute Neuts (auto) 16.1 H Absolute Lymphs (auto) 1.14 Nucleated RBC % 0 PT 15.4 H INR 1.2 APTT 31.5 Sodium 132 L Potassium 3.5 Chloride 99 Carbon Dioxide 17.4 L Anion Gap 15 BUN 21 H Creatinine 0.81 Estim Creat Clear Calc 92.40 Est GFR (MDRD) Non-Af 87 BUN/Creatinine Ratio 26.0 H Glucose 143 H Lactic Acid 2.7 H* Calcium 9.0 Total Bilirubin 0.62 AST 47 H ALT 53 H Alkaline Phosphatase 128 H Troponin T High Sens 124 H* Troponin T Hi Sens 2 Hr 145 H* Total Protein 8.1 Albumin 3.5 Globulin 4.6 H Albumin/Globulin Ratio 0.8 L Urine Color Yellow Urine Clarity Clear Urine pH 6.0 Ur Specific [place] 1.010 Urine Protein 30 H Urine Glucose (UA) Normal Urine Ketones Negative Urine Occult Blood 25 H Urine Nitrite Negative Urine Bilirubin Negative Urine Urobilinogen Normal Ur Leukocyte Esterase 25 H Urine RBC 0-5 SEEN Urine WBC 0-5 SEEN Ur Squamous Epith Cells 0-5 SEEN Urine Bacteria 0 SEEN Hyaline Casts 0-5 SEEN Fine Granular Casts 0-5 SEEN Urine Mucus 0 SEEN Radiography Diagnostic Testing: Clinical Impression(s) from Imaging Studies Chest X-Ray 11/28/24 14:29 IMPRESSION: Cardiomegaly without overt failure. Reading Location: [facility] Procedures <Daniel Tyler MD - Last Filed: 11/29/24 23:46> Other Procedures Procedure(s): Cardioversion: Patient administered fentanyl for analgesia prior to cardioversion. Given her hypotension, this is more of an emergent procedure as she has remained hypotensive and tachycardic throughout her stay. She was administered ketamine 2 mg/kg and cardioversion synchronized performed at 200 J. Patient tolerated procedure well. Resultant EKG obtained and noted per chart <Daniel Tyler MD - Last Filed: 11/29/24 23:46> Critical Care Time Critical Care Time: Yes Critical care time (excluding procedures): 30-74 minutes (32 minutes), Including time spent:, Discussing w/Patient &/or Family/Clinical Specialty Rep, Discussing w/Consultants, Arranging Admission or Transfer and Performing Direct Patient Care at Bedside Discharge Plan Dx/Rx/DC Orders Clinical Impression: Atrial flutter by electrocardiogram, Hypotension, Sepsis, Lactic acidosis, Elevated troponin, Encounter for cardioversion procedure Disposition Disposition: Acute Care Hospital [facility] Discharge Date/Time: 11/28/24 20:11
[2024-11-28 14:50] LABS: Absolute Lymphocyte Count 1.14 X10^3/uL (0.83-4.51); Absolute Neutrophil Count 16.1 X10^3/uL (2.0-7.7); Basophil# 0.03 X10^3/uL; Basophil% 0.2 % (0-1); Eosinophil# 0.02 X10^3/uL; Eosinophils% 0.1 % (0-5); Hematocrit 33.9 % (37-47); Hemoglobin 11.5 g/dL (12.0-15.0); Lymphocyte # 1.14 X10^3/ul (0.83-4.51); Lymphocyte % 6.2 % (19-41); Mean Corp Hgb Conc 33.9 g/dL (32-36); Mean Corpuscular Hgb 26.7 pg (27.0-32.0); Mean Corpuscular Volume 78.7 fL (81-99); Mean Platelet Vol. 8.5 fl (6.2-12.0); Monocyte% 4.9 % (0-10); NRBC Flagged by Analyzer 0 % (0-5); Neutrophil # 16.07 X10^3/uL (2.7-7.7); Neutrophil % 88.1 % (47-70); Platelet Count 308 K/mm3 (150-450); RBC Distribution Width CV 14.6 % (11.6-14.6); RBC Distribution Width SD 41.9 fl (35.1-43.9); Red Blood Count 4.31 M/mm3 (4.2-5.4); White Blood Count 18.3 K/mm3 (4.4-11.0)
[2024-11-28 14:57] LABS: International Normalized Ratio 1.2; Prothrombin Time (Protime)PT. 15.4 SECONDS (11.7-14.9)
[2024-11-28 14:58] LABS: Partial Thromboplast Time 31.5 Seconds (24.1-36.2)
[2024-11-28 15:18] LABS: ALB/GLOB Ratio 0.8 RATIO (0.9-2.4); AST(SGOT) 47 U/L (<=31); Alanine Aminotransfer ALT/SGPT 53 U/L (<=34); Albumin, Serum 3.5 g/dL (3.5-5.0); Alkaline Phosphatase 128 U/L (35-104); Anion Gap 15 (5-15); BUN 21 mg/dL (4-19); Carbon Dioxide 17.4 mmol/L (21.0-32.0); Chloride 99 mmol/L (98-108); Creatinine, Serum 0.81 mg/dL (0.70-1.20); EST Glomerular Filtration Rate 87 (>60); Globulin 4.6 g/dL (2.2-4.2); Glucose 143 mg/dL (70-99); Potassium 3.5 mmol/L (3.3-5.1); Protein, Total 8.1 g/dL (5.9-8.4); Sodium Level 132 mmol/L (133-145); Total Bilirubin 0.62 mg/dL (0.00-1.30)
[2024-11-28 15:57] LABS: Lactic Acid 2.7 mmol/L (0.0-2.0); Troponin T High Sensitivity 124 ng/L (<=14)
--- NOTE | 2024-11-28 15:59 | ED.RN ---
Dr Tyler notified of critical of trop and lactic.
--- NOTE | 2024-11-28 16:07 | PCM.CONS.C ---
Assessment & Plan Assessment/Plan (1) Atrial flutter by electrocardiogram: PLAN: Patient's initial ECG was rate of 180 that looked to be a supraventricular tachycardia. After Adenocard it appears that she is in atrial flutter which is an atypical flutter at 2-1 conduction with a heart rate of 140-150 bpm. The patient's blood pressure remains relatively depressed at 99/60. This is after a liter of saline. It appears the patient has evidence of sepsis from an unknown identified source at this time. Lactic acid is 2.7 white count is 18,000 and a temp 103. Would recommend an attempt at chemical rate control with a's dose of IV Cardizem. If this is not successful and her blood pressure drops would recommend direct-current cardioversion. If her blood pressure is maintained but the heart rate continues would recommend continued treatment for sepsis in addition of low-dose beta-najma for rate control. At this point in time would defer heparin. If we are unable to convert her in the emergency department back into a sinus rhythm within need to either utilize full dose Lovenox or IV heparin. It is unlikely be able to maintain sinus rhythm without control of her underlying septic picture. Therefore, would recommend we proceed with rate control as blood pressure will tolerate and anticoagulate if she cannot successfully be cardioverted in the emergency department. (2) Hypotension: QUALIFIERS: Hypotension type: other hypotension type Qualified Code(s): I95.89 - Other hypotension PLAN: It appears the patient is probably septic. That diagnosis is not been confirmed as at this time. We do not have an obvious source of infection. The patient remains hypotensive despite volume resuscitation would recommend proceeding with direct-current cardioversion. The assumption is that she has been in atrial flutter for less than 24 hours given she only felt the palpitations starting today. PLAN: Plan 1. Recommend fluid resuscitation and when blood pressure will tolerate IV Cardizem bolus. 2. If Cardizem is not successful, recommend direct-current cardioversion if blood pressure is down or blood pressure is adequate would continue to try rate control with low-dose metoprolol as blood pressure will tolerate. 3. Continue to evaluate etiology of the patient's hypotension and treat accordingly. 4. Please call if assistance is needed Dr. Rubio will be assuming the service tomorrow. HPI Consult Data Date of Consult: 11/28/24 HPI Narrative HPI Narrative: RANJIT WYATT, is a 54 F who presents with approximately 1 week history of weakness and lack of energy. The patient was evaluated in the emergency room. Her had hip surgery recently and she thought she was just worn out from taking care of him. However today he she developed chills and rigors and palpitations. She presented the emergency department and had a heart rate of 180 which appears to be regular and narrow complex. She was given adenosine 3 times and what appeared to me sinus rhythm or an atypical flutter at 2-1 resulted in a heart rate of 130?150. Currently her ECG shows a narrow complex QRS with a heart rate of 115 and what appears to be an atypical flutter. The patient's lab evaluation was consistent with sepsis she has no obvious site of infection identified at this time. Her white count is 18,000, lactic acid is 2.7 she is hypotensive with a tachycardia. Blood pressure is 99/60 after a liter of saline. The patient is being worked up for sepsis. The patient denies any prior history of cardiac issues. She has a history of remote traumatic injury of her left lower extremity but did not have any broken bones. She has had no recent surgery she denies any significant sputum production, she does complain of a cough intermittently. The patient is very noncommittal when asked questions about dysuria or hematuria she has reports she has been fatigued and tired. The patient does have a fever of 103.2 on arrival. Respiratory rate is 29. [facility] Medical History Hysterectomy planned Medical History no medical history Home Medications ?Medication ?Instructions ?Recorded ?Last Taken ?Type NK 11/28/24 Unknown History Allergy/AdvReac Type Severity Reaction Status Date / Time Sulfa (Sulfonamide Allergy Anaphylaxis Verified 11/28/24 14:20 Antibiotics) Family History no significant family his Social History household members: spouse and children housing: house Smoking Status: Never smoker ROS Constitutional Constitutional: Reports as per HPI and other Details: Patient has multiple somatic complaints. Eyes Eyes: Reports systems reviewed and no addt'l complaints, except as documented ENT HEENT: Reports as per HPI Cardiovascular Cardiovascular: Reports as per HPI Respiratory/Chest Respiratory/Chest: Reports as per HPI Gastrointestinal Gastrointestinal: Reports as per HPI Genitourinary Genitourinary: Reports as per HPI Musculoskeletal Musculoskeletal: Reports as per HPI Integumentary Integumentary: Reports as per HPI Neurologic Neurologic: Reports systems reviewed and no addt'l complaints, except as documented Psychiatric Psychiatric: Reports systems reviewed and no addt'l complaints, except as documented Endocrine Endocrinology: Reports systems reviewed and no addt'l complaints, except as documented Hematologic/Lymphatic Hematologic/Lymphatic: Reports systems reviewed and no addt'l complaints, except as documented Physical Exam Narrative Moderately toxic appearing white female resting and flat in the recumbent position on the gurney in the emergency department. Telemetry shows a heart rate of 140 bpm and regular narrow complex. Const alert and oriented x3 HEENT normocephalic Eyes EOMs intact bilaterally Neck Neck Narrative: Patient has what appears to be flutter waves in the left jugular vein. Carotids: Negative for bruit Chest inspection of chest normal Resp normal respiratory effort and clear to auscultation bilaterally Cardio Cardio Narrative: Distant heart tones due to body habitus. No obvious murmurs or gallops. Rate: tachycardic Rhythm: regular rhythm Heart Sounds: S1 normal and S2 normal; Negative for click, gallop or murmur GI GI Narrative: Soft to palpation Extremity no pedal edema Extremity Narrative: Marked superficial varicose veins bilaterally. General Extremity: Negative for edema Skin Skin Narrative: Hyperpigmented healed traumatic injury site left lower extremity Neuro Neuro Narrative: Alert and oriented x 3. Psych mental status grossly normal Risk Stratification Risk Stratification Applicable: No Charges/Coding Visit Charges Inpatient E&M: 87282 Init Hosp L3 Objective Data Vital Signs: Vital Signs Temp Pulse Resp BP Pulse Ox O2 Del Method 103.2 F H 140 H 20 H 99/59 L 97 Room Air 11/28/24 14:14 11/28/24 15:55 11/28/24 15:40 11/28/24 15:55 11/28/24 15:40 11/28/24 15:40 Oxygen Delivery Method Room Air Weight: 193 lb 5.526 oz Body Mass Index (BMI) 30.2 Lab / Micro Data Attestation: I reviewed the patient's lab results. 11/28/24 14:25 11/28/24 14:25 Labs: Laboratory Results - last 24 hr 11/28/24 14:25: WBC 18.3 H, RBC 4.31, Hgb 11.5 L, Hct 33.9 L, MCV 78.7 L, MCH 26.7 L, MCHC 33.9, RDW Std Deviation 41.9, RDW Coeff of Marbin 14.6, Plt Count 308, MPV 8.5, Immature Gran % (Auto) 0.500, Neut % (Auto) 88.1 H, Lymph % (Auto) 6.2 L, [place] % (Auto) 4.9, Eos % (Auto) 0.1, Baso % (Auto) 0.2, Absolute Neuts (auto) 16.1 H, Absolute Lymphs (auto) 1.14, Nucleated RBC % 0, PT 15.4 H, INR 1.2, APTT 31.5, Sodium 132 L, Potassium 3.5, Chloride 99, Carbon Dioxide 17.4 L, Anion Gap 15, BUN 21 H, Creatinine 0.81, Estim Creat Clear Calc 92.40, Est GFR (MDRD) Non-Af 87, BUN/Creatinine Ratio 26.0 H, Glucose 143 H, Lactic Acid 2.7 H*, Calcium 9.0, Total Bilirubin 0.62, AST 47 H, ALT 53 H, Alkaline Phosphatase 128 H, Troponin T High Sens 124 H*, Total Protein 8.1, Albumin 3.5, Globulin 4.6 H, Albumin/Globulin Ratio 0.8 L Micro: Microbiology 11/28/24 14:44 Mucosa - Nose SARS-CoV-2, Influenza & RSV (PCR) - Final ABG Data Attestation: I personally reviewed and interpreted this ABG as follows: (Consistent with atrial flutter with 2-1 conduction heart rate of 140. No significant ischemic changes noted.) Rhythm Strip Rhythm Strip: Atrial flutter 2-1 conduction Rate: 140 Cardiology Labs/Tests 11/28/24 14:25: WBC 18.3 H, RBC 4.31, Hgb 11.5 L, Hct 33.9 L, MCV 78.7 L, MCH 26.7 L, MCHC 33.9, Plt Count 308, MPV 8.5, Immature Gran % (Auto) 0.500, Neut % (Auto) 88.1 H, Lymph % (Auto) 6.2 L, [place] % (Auto) 4.9, Eos % (Auto) 0.1, Baso % (Auto) 0.2, Absolute Neuts (auto) 16.1 H, Nucleated RBC % 0, PT 15.4 H, INR 1.2, APTT 31.5, Sodium 132 L, Potassium 3.5, Chloride 99, Carbon Dioxide 17.4 L, Anion Gap 15, BUN 21 H, Creatinine 0.81, Est GFR (MDRD) Non-Af 87, BUN/Creatinine Ratio 26.0 H, Glucose 143 H, Lactic Acid 2.7 H*, Calcium 9.0, Total Bilirubin 0.62 Rhythm: EKG: ECHO: Stress Test: Cardiac Cath: PCI: CT Surgery: Holter monitor: EPS: PPM: CXR: Chest CT Scan: Radiography Diagnostic Testing: Radiology Impression Chest X-Ray 11/28/24 14:29 IMPRESSION: Cardiomegaly without overt failure. Reading Location: [facility]
[2024-11-28 16:46] LABS: Bacteria 0 SEEN /hpf (None Seen); Mucous, Urine 0 SEEN /hpf (<or=2+)
--- NOTE | 2024-11-28 16:48 | ED.RN ---
THIS NURSE WAS GIVEN VERBAL INSTRUCTION VIA DR. CALDERON TO WITHHOLD ANTIBIOTICS ADMINISTRATION UNTIL SEPSIS FLUIDS ARE COMPLETE.
[2024-11-28] MEDS: fentaNYL 100 MCG/2 ML Ampul 50 MCG IV (17:34)
[2024-11-28 17:36] LABS: Troponin T High Sens 2 HR 145 ng/L (<=14)
[2024-11-28] MEDS: Ketamine HCl 500 MG/5 ML Vial 123 MG IV (17:36)
[2024-11-28] MEDS: Ondansetron 4 MG/2 ML Vial IV (18:07)
[2024-11-28 18:16] LABS: Color, Urine Yellow (Yellow); Glucose, Dipstick Normal (Normal); Ketone-Dipstick Negative (Negative); Leukocyte Esterase-Dipstick 25 /ul (Negative); Nitrite-Dipstick Negative (Negative); Occult Blood-Urine 25 /ul (Negative); Protein-Dipstick 30 mg/dl (Negative); Urine Bilirubin Dipstick Negative (Negative); Urine Clarity Clear (Clear); Urine Urobilinogen Normal (Normal)
[2024-11-28 18:34] LABS: Red Blood Cells-Urine 0-5 SEEN /hpf (0-5); White Blood Cells 0-5 SEEN /hpf (0-5)
[2024-11-28 18:35] LABS: Fine Granular Cast- Urine 0-5 SEEN /lpf (0-5); Hyaline Cast 0-5 SEEN /lpf (0-5)
[2024-11-28] MEDS: Piperacil/Tazobactam 4.5 GM in 0.9% Normal Saline (100mL MB+) 100 ML IV (18:36)
[2024-11-28 18:38] LABS: Squamous Epithelial Cells - UA 0-5 SEEN /hpf (5-10)
[2024-11-28 18:45] LABS: Reflex Lactate? Y
--- NOTE | 2024-11-28 19:07 | PCM.HP.STD ---
HPI - General General Date of Admission: 11/28/24 Date of Service: 11/28/24 Chief Complaint: Weakness for 1 week HPI Narrative RANJIT WYATT, is a 54-year-old female who denies significant past medical history presented to [facility] ED 11/28/2024 with complaint of weakness. She reports she has not been feeling well for the past few weeks with occasional lightheadedness and today started having heart palpitations and racing heartbeat per ED physician. In the ED temperature 103.2, heart rate initially 186 with blood pressure 83/58, patient tachypneic with respiratory rate of 36 and pulse ox 92% on room air. White blood cell count noted to be 18.3 and bicarb slightly low at 17.4 on BMP with sodium of 132. Lactic acid found to be 2.7 with a troponin of 124. CXR w/ cardiomegaly w/out overt failure. Pt given adenosine in the ED which slowed her rhythm and appeared to be flutter with 2-1 block per cardiology who was contacted in the ED. Cardiology recommended dose of Cardizem and if heart rate did not improve or she remained hypotensive she would need to be cardioverted. Patient remained tachycardic and hypotensive so she was cardioverted with resumption of normal sinus rhythm. Hospitalist contacted for admission. Patient evaluated with family member at bedside, patient reports she has felt a little bit weak for 1 week but denies any other complaints, no cough or shortness of breath, no abdominal pain or nausea, no diarrhea, denies any erythema, rashes, wounds. Denies any pain in her jaw or head or any recent problems with her teeth. Patient feels tired after her sedation for cardioversion and it made her little bit nauseous but thinks she may feel little bit better overall. [facility] Medical History Hysterectomy planned Medical History no medical history Home Medications ?Medication ?Instructions ?Recorded ?Last Taken ?Type NK 11/28/24 Unknown History Allergy/AdvReac Type Severity Reaction Status Date / Time Sulfa (Sulfonamide Allergy Anaphylaxis Verified 11/28/24 14:20 Antibiotics) Family History no significant family his Social History household members: spouse and children housing: house Smoking Status: Never smoker ROS ROS Narrative General: Denies fever/chills, reports she felt a little bit weak overall HENT: Denies headache, denies stuffy nose, denies sore throat, denies any jaw pain or tooth pain EYES: Denies changes in vision Resp: Denies cough, denies shortness of breath Cardiac: Denies chest pain GI: Denies abdominal pain, denies changes in bowel, denies nausea/vomiting : Denies changes in urination Extremity: Denies swelling MSK: Little bit of generalized weakness for 1 week Neuro: Denies any numbness/tingling Heme: Denies any bleeding or bruising Skin: Denies rashes Psychiatric: No complaints voiced Vital Signs Vital Signs Vital Signs: 11/28/24 14:14 11/28/24 14:20 11/28/24 14:20 Temperature 103.2 F H Temperature Source Oral Pulse Rate 186 H 185 H Pulse Rate [1 (Initial Baseline)] Pulse Rate [2] Pulse Rate [3] Pulse Rate [4] Pulse Rate [5] Pulse Rate [6] Respiratory Rate 36 H 31 H Respiratory Rate [1 (Initial Baseline)] Respiratory Rate [2] Respiratory Rate [3] Respiratory Rate [4] Respiratory Rate [5] Respiratory Rate [6] Respiratory Effort Normal Non-Labored Blood Pressure 83/58 L 94/58 L Blood Pressure [1 (Initial Baseline)] Blood Pressure [2] Blood Pressure [3] Blood Pressure [4] Blood Pressure [5] Blood Pressure [6] Blood Pressure Mean 66 70 Baseline BP Pulse Ox 92 93 Oxygen Delivery Method Room Air Oxygen Delivery Method [1 (Initial Baseline)] Oxygen Delivery Method [2] Oxygen Delivery Method [3] Oxygen Delivery Method [4] Oxygen Delivery Method [5] Oxygen Delivery Method [6] Oxygen Flow Rate (L/min) Oxygen Flow Rate (L/min) [1 (Initial Baseline)] Oxygen Flow Rate (L/min) [2] Oxygen Flow Rate (L/min) [3] Oxygen Flow Rate (L/min) [4] EtCo2 (Normal 35-45 , high quality CPR 10-20 & ROSC>/=40mmHg EtCo2 (Normal 35-45 , high quality CPR 10-20 & ROSC>/=40mmHg [1 (Initial Baseline)] EtCo2 (Normal 35-45 , high quality CPR 10-20 & ROSC>/=40mmHg [2] EtCo2 (Normal 35-45 , high quality CPR 10-20 & ROSC>/=40mmHg [3] EtCo2 (Normal 35-45 , high quality CPR 10-20 & ROSC>/=40mmHg [4] EtCo2 (Normal 35-45 , high quality CPR 10-20 & ROSC>/=40mmHg [5] EtCo2 (Normal 35-45 , high quality CPR 10-20 & ROSC>/=40mmHg [6] 11/28/24 14:40 11/28/24 14:41 11/28/24 14:59 Temperature Temperature Source Pulse Rate 144 H 144 H Pulse Rate [1 (Initial Baseline)] Pulse Rate [2] Pulse Rate [3] Pulse Rate [4] Pulse Rate [5] Pulse Rate [6] Respiratory Rate 25 H 23 H Respiratory Rate [1 (Initial Baseline)] Respiratory Rate [2] Respiratory Rate [3] Respiratory Rate [4] Respiratory Rate [5] Respiratory Rate [6] Respiratory Effort Blood Pressure 92/44 L 92/49 L Blood Pressure [1 (Initial Baseline)] Blood Pressure [2] Blood Pressure [3] Blood Pressure [4] Blood Pressure [5] Blood Pressure [6] Blood Pressure Mean 60 63 Baseline BP Pulse Ox 95 96 96 Oxygen Delivery Method Room Air Room Air Room Air Oxygen Delivery Method [1 (Initial Baseline)] Oxygen Delivery Method [2] Oxygen Delivery Method [3] Oxygen Delivery Method [4] Oxygen Delivery Method [5] Oxygen Delivery Method [6] Oxygen Flow Rate (L/min) Oxygen Flow Rate (L/min) [1 (Initial Baseline)] Oxygen Flow Rate (L/min) [2] Oxygen Flow Rate (L/min) [3] Oxygen Flow Rate (L/min) [4] EtCo2 (Normal 35-45 , high quality CPR 10-20 & ROSC>/=40mmHg EtCo2 (Normal 35-45 , high quality CPR 10-20 & ROSC>/=40mmHg [1 (Initial Baseline)] EtCo2 (Normal 35-45 , high quality CPR 10-20 & ROSC>/=40mmHg [2] EtCo2 (Normal 35-45 , high quality CPR 10-20 & ROSC>/=40mmHg [3] EtCo2 (Normal 35-45 , high quality CPR 10-20 & ROSC>/=40mmHg [4] EtCo2 (Normal 35-45 , high quality CPR 10-20 & ROSC>/=40mmHg [5] EtCo2 (Normal 35-45 , high quality CPR 10-20 & ROSC>/=40mmHg [6] 11/28/24 15:14 11/28/24 15:40 11/28/24 15:55 Temperature Temperature Source Pulse Rate 143 H 136 H 140 H Pulse Rate [1 (Initial Baseline)] Pulse Rate [2] Pulse Rate [3] Pulse Rate [4] Pulse Rate [5] Pulse Rate [6] Respiratory Rate 21 H 20 H Respiratory Rate [1 (Initial Baseline)] Respiratory Rate [2] Respiratory Rate [3] Respiratory Rate [4] Respiratory Rate [5] Respiratory Rate [6] Respiratory Effort Blood Pressure 90/61 95/54 L 99/59 L Blood Pressure [1 (Initial Baseline)] Blood Pressure [2] Blood Pressure [3] Blood Pressure [4] Blood Pressure [5] Blood Pressure [6] Blood Pressure Mean 70 67 72 Baseline BP Pulse Ox 96 97 Oxygen Delivery Method Room Air Room Air Oxygen Delivery Method [1 (Initial Baseline)] Oxygen Delivery Method [2] Oxygen Delivery Method [3] Oxygen Delivery Method [4] Oxygen Delivery Method [5] Oxygen Delivery Method [6] Oxygen Flow Rate (L/min) Oxygen Flow Rate (L/min) [1 (Initial Baseline)] Oxygen Flow Rate (L/min) [2] Oxygen Flow Rate (L/min) [3] Oxygen Flow Rate (L/min) [4] EtCo2 (Normal 35-45 , high quality CPR 10-20 & ROSC>/=40mmHg EtCo2 (Normal 35-45 , high quality CPR 10-20 & ROSC>/=40mmHg [1 (Initial Baseline)] EtCo2 (Normal 35-45 , high quality CPR 10-20 & ROSC>/=40mmHg [2] EtCo2 (Normal 35-45 , high quality CPR 10-20 & ROSC>/=40mmHg [3] EtCo2 (Normal 35-45 , high quality CPR 10-20 & ROSC>/=40mmHg [4] EtCo2 (Normal 35-45 , high quality CPR 10-20 & ROSC>/=40mmHg [5] EtCo2 (Normal 35-45 , high quality CPR 10-20 & ROSC>/=40mmHg [6] 11/28/24 16:00 11/28/24 17:00 11/28/24 17:09 Temperature 99.3 F H Temperature Source Pulse Rate 138 H 126 H 126 H Pulse Rate [1 (Initial Baseline)] Pulse Rate [2] Pulse Rate [3] Pulse Rate [4] Pulse Rate [5] Pulse Rate [6] Respiratory Rate 29 H 26 H 26 H Respiratory Rate [1 (Initial Baseline)] Respiratory Rate [2] Respiratory Rate [3] Respiratory Rate [4] Respiratory Rate [5] Respiratory Rate [6] Respiratory Effort Blood Pressure 98/57 L 84/53 L 84/53 L Blood Pressure [1 (Initial Baseline)] Blood Pressure [2] Blood Pressure [3] Blood Pressure [4] Blood Pressure [5] Blood Pressure [6] Blood Pressure Mean 70 63 63 Baseline BP Pulse Ox 96 98 98 Oxygen Delivery Method Oxygen Delivery Method [1 (Initial Baseline)] Oxygen Delivery Method [2] Oxygen Delivery Method [3] Oxygen Delivery Method [4] Oxygen Delivery Method [5] Oxygen Delivery Method [6] Oxygen Flow Rate (L/min) Oxygen Flow Rate (L/min) [1 (Initial Baseline)] Oxygen Flow Rate (L/min) [2] Oxygen Flow Rate (L/min) [3] Oxygen Flow Rate (L/min) [4] EtCo2 (Normal 35-45 , high quality CPR 10-20 & ROSC>/=40mmHg EtCo2 (Normal 35-45 , high quality CPR 10-20 & ROSC>/=40mmHg [1 (Initial Baseline)] EtCo2 (Normal 35-45 , high quality CPR 10-20 & ROSC>/=40mmHg [2] EtCo2 (Normal 35-45 , high quality CPR 10-20 & ROSC>/=40mmHg [3] EtCo2 (Normal 35-45 , high quality CPR 10-20 & ROSC>/=40mmHg [4] EtCo2 (Normal 35-45 , high quality CPR 10-20 & ROSC>/=40mmHg [5] EtCo2 (Normal 35-45 , high quality CPR 10-20 & ROSC>/=40mmHg [6] 11/28/24 17:10 11/28/24 17:35 11/28/24 17:36 Temperature 99.3 F H 99.3 F H Temperature Source Oral Pulse Rate 126 H 133 H Pulse Rate [1 (Initial Baseline)] 133 H Pulse Rate [2] 96 Pulse Rate [3] 95 Pulse Rate [4] 92 Pulse Rate [5] 82 Pulse Rate [6] 94 Respiratory Rate 26 H 16 Respiratory Rate [1 (Initial Baseline)] 16 Respiratory Rate [2] 21 H Respiratory Rate [3] 24 H Respiratory Rate [4] 22 H Respiratory Rate [5] 24 H Respiratory Rate [6] 20 H Respiratory Effort Blood Pressure 84/53 L 97/70 Blood Pressure [1 (Initial Baseline)] 97/70 Blood Pressure [2] 103/72 Blood Pressure [3] 99/71 Blood Pressure [4] 90/68 Blood Pressure [5] 93/63 Blood Pressure [6] 102/73 Blood Pressure Mean 63 Baseline BP 97/70 Pulse Ox 98 100 Oxygen Delivery Method Room Air Nasal Cannula Oxygen Delivery Method [1 (Initial Baseline)] Nasal Cannula Oxygen Delivery Method [2] Nasal Cannula Oxygen Delivery Method [3] Nasal Cannula Oxygen Delivery Method [4] Nasal Cannula Oxygen Delivery Method [5] Room Air Oxygen Delivery Method [6] Room Air Oxygen Flow Rate (L/min) 2 Oxygen Flow Rate (L/min) [1 (Initial Baseline)] 2 Oxygen Flow Rate (L/min) [2] 2 Oxygen Flow Rate (L/min) [3] 2 Oxygen Flow Rate (L/min) [4] 2 EtCo2 (Normal 35-45 , high quality CPR 10-20 & ROSC>/=40mmHg 18 EtCo2 (Normal 35-45 , high quality CPR 10-20 & ROSC>/=40mmHg [1 (Initial Baseline)] 18 EtCo2 (Normal 35-45 , high quality CPR 10-20 & ROSC>/=40mmHg [2] 30 EtCo2 (Normal 35-45 , high quality CPR 10-20 & ROSC>/=40mmHg [3] 28 EtCo2 (Normal 35-45 , high quality CPR 10-20 & ROSC>/=40mmHg [4] 29 EtCo2 (Normal 35-45 , high quality CPR 10-20 & ROSC>/=40mmHg [5] 29 EtCo2 (Normal 35-45 , high quality CPR 10-20 & ROSC>/=40mmHg [6] 28 11/28/24 18:00 11/28/24 18:06 11/28/24 18:10 Temperature Temperature Source Pulse Rate 92 91 87 Pulse Rate [1 (Initial Baseline)] Pulse Rate [2] Pulse Rate [3] Pulse Rate [4] Pulse Rate [5] Pulse Rate [6] Respiratory Rate 22 H 23 H 21 H Respiratory Rate [1 (Initial Baseline)] Respiratory Rate [2] Respiratory Rate [3] Respiratory Rate [4] Respiratory Rate [5] Respiratory Rate [6] Respiratory Effort Blood Pressure 94/68 94/68 98/68 Blood Pressure [1 (Initial Baseline)] Blood Pressure [2] Blood Pressure [3] Blood Pressure [4] Blood Pressure [5] Blood Pressure [6] Blood Pressure Mean 76 Baseline BP Pulse Ox 98 98 100 Oxygen Delivery Method Room Air Room Air Oxygen Delivery Method [1 (Initial Baseline)] Oxygen Delivery Method [2] Oxygen Delivery Method [3] Oxygen Delivery Method [4] Oxygen Delivery Method [5] Oxygen Delivery Method [6] Oxygen Flow Rate (L/min) Oxygen Flow Rate (L/min) [1 (Initial Baseline)] Oxygen Flow Rate (L/min) [2] Oxygen Flow Rate (L/min) [3] Oxygen Flow Rate (L/min) [4] EtCo2 (Normal 35-45 , high quality CPR 10-20 & ROSC>/=40mmHg 28 24 EtCo2 (Normal 35-45 , high quality CPR 10-20 & ROSC>/=40mmHg [1 (Initial Baseline)] EtCo2 (Normal 35-45 , high quality CPR 10-20 & ROSC>/=40mmHg [2] EtCo2 (Normal 35-45 , high quality CPR 10-20 & ROSC>/=40mmHg [3] EtCo2 (Normal 35-45 , high quality CPR 10-20 & ROSC>/=40mmHg [4] EtCo2 (Normal 35-45 , high quality CPR 10-20 & ROSC>/=40mmHg [5] EtCo2 (Normal 35-45 , high quality CPR 10-20 & ROSC>/=40mmHg [6] 11/28/24 18:14 11/28/24 18:15 11/28/24 18:29 Temperature 99.3 F H 98.1 F Temperature Source Oral Oral Pulse Rate 96 97 92 Pulse Rate [1 (Initial Baseline)] Pulse Rate [2] Pulse Rate [3] Pulse Rate [4] Pulse Rate [5] Pulse Rate [6] Respiratory Rate 22 H 21 H 18 Respiratory Rate [1 (Initial Baseline)] Respiratory Rate [2] Respiratory Rate [3] Respiratory Rate [4] Respiratory Rate [5] Respiratory Rate [6] Respiratory Effort Blood Pressure 98/68 103/76 85/67 L Blood Pressure [1 (Initial Baseline)] Blood Pressure [2] Blood Pressure [3] Blood Pressure [4] Blood Pressure [5] Blood Pressure [6] Blood Pressure Mean 78 73 Baseline BP Pulse Ox 98 98 98 Oxygen Delivery Method Room Air Room Air Room Air Oxygen Delivery Method [1 (Initial Baseline)] Oxygen Delivery Method [2] Oxygen Delivery Method [3] Oxygen Delivery Method [4] Oxygen Delivery Method [5] Oxygen Delivery Method [6] Oxygen Flow Rate (L/min) Oxygen Flow Rate (L/min) [1 (Initial Baseline)] Oxygen Flow Rate (L/min) [2] Oxygen Flow Rate (L/min) [3] Oxygen Flow Rate (L/min) [4] EtCo2 (Normal 35-45 , high quality CPR 10-20 & ROSC>/=40mmHg 33 EtCo2 (Normal 35-45 , high quality CPR 10-20 & ROSC>/=40mmHg [1 (Initial Baseline)] EtCo2 (Normal 35-45 , high quality CPR 10-20 & ROSC>/=40mmHg [2] EtCo2 (Normal 35-45 , high quality CPR 10-20 & ROSC>/=40mmHg [3] EtCo2 (Normal 35-45 , high quality CPR 10-20 & ROSC>/=40mmHg [4] EtCo2 (Normal 35-45 , high quality CPR 10-20 & ROSC>/=40mmHg [5] EtCo2 (Normal 35-45 , high quality CPR 10-20 & ROSC>/=40mmHg [6] 11/28/24 18:43 Temperature Temperature Source Pulse Rate 91 Pulse Rate [1 (Initial Baseline)] Pulse Rate [2] Pulse Rate [3] Pulse Rate [4] Pulse Rate [5] Pulse Rate [6] Respiratory Rate 24 H Respiratory Rate [1 (Initial Baseline)] Respiratory Rate [2] Respiratory Rate [3] Respiratory Rate [4] Respiratory Rate [5] Respiratory Rate [6] Respiratory Effort Blood Pressure 114/81 H Blood Pressure [1 (Initial Baseline)] Blood Pressure [2] Blood Pressure [3] Blood Pressure [4] Blood Pressure [5] Blood Pressure [6] Blood Pressure Mean 92 Baseline BP Pulse Ox 98 Oxygen Delivery Method Oxygen Delivery Method [1 (Initial Baseline)] Oxygen Delivery Method [2] Oxygen Delivery Method [3] Oxygen Delivery Method [4] Oxygen Delivery Method [5] Oxygen Delivery Method [6] Oxygen Flow Rate (L/min) Oxygen Flow Rate (L/min) [1 (Initial Baseline)] Oxygen Flow Rate (L/min) [2] Oxygen Flow Rate (L/min) [3] Oxygen Flow Rate (L/min) [4] EtCo2 (Normal 35-45 , high quality CPR 10-20 & ROSC>/=40mmHg EtCo2 (Normal 35-45 , high quality CPR 10-20 & ROSC>/=40mmHg [1 (Initial Baseline)] EtCo2 (Normal 35-45 , high quality CPR 10-20 & ROSC>/=40mmHg [2] EtCo2 (Normal 35-45 , high quality CPR 10-20 & ROSC>/=40mmHg [3] EtCo2 (Normal 35-45 , high quality CPR 10-20 & ROSC>/=40mmHg [4] EtCo2 (Normal 35-45 , high quality CPR 10-20 & ROSC>/=40mmHg [5] EtCo2 (Normal 35-45 , high quality CPR 10-20 & ROSC>/=40mmHg [6] Weight Weight: 87.7 kg Body Mass Index (BMI) 30.2 Physical Exam Narrative General: Patient tired, still coming out of sedation HEENT: Atraumatic, normocephalic, no erythema back of throat Eyes: Anicteric, normal conjunctiva, extraocular movements grossly intact Neck: Supple, no significant or overt lymphadenopathy Respiratory: Clear to auscultation bilaterally, normal respiratory effort Cardiovascular: Regular rate and rhythm at this time GI: Soft, nontender, nondistended Extremities: No edema Musculoskeletal: Moving all extremities Neuro: No overt focal neurological deficits Skin: No rashes appreciated Psych: Cooperative Results Lab / Micro Data 11/28/24 14:25 11/28/24 14:25 Labs: Laboratory Results - last 24 hr 11/28/24 14:25: WBC 18.3 H, RBC 4.31, Hgb 11.5 L, Hct 33.9 L, MCV 78.7 L, MCH 26.7 L, MCHC 33.9, RDW Std Deviation 41.9, RDW Coeff of Marbin 14.6, Plt Count 308, MPV 8.5, Immature Gran % (Auto) 0.500, Neut % (Auto) 88.1 H, Lymph % (Auto) 6.2 L, [place] % (Auto) 4.9, Eos % (Auto) 0.1, Baso % (Auto) 0.2, Absolute Neuts (auto) 16.1 H, Absolute Lymphs (auto) 1.14, Nucleated RBC % 0, PT 15.4 H, INR 1.2, APTT 31.5, Sodium 132 L, Potassium 3.5, Chloride 99, Carbon Dioxide 17.4 L, Anion Gap 15, BUN 21 H, Creatinine 0.81, Estim Creat Clear Calc 92.40, Est GFR (MDRD) Non-Af 87, BUN/Creatinine Ratio 26.0 H, Glucose 143 H, Lactic Acid 2.7 H*, Calcium 9.0, Total Bilirubin 0.62, AST 47 H, ALT 53 H, Alkaline Phosphatase 128 H, Troponin T High Sens 124 H*, Total Protein 8.1, Albumin 3.5, Globulin 4.6 H, Albumin/Globulin Ratio 0.8 L 11/28/24 16:28: Troponin T Hi Sens 2 Hr 145 H*, Urine Color Yellow, Urine Clarity Clear, Urine pH 6.0, Ur Specific [place] 1.010, Urine Protein 30 H, Urine Glucose (UA) Normal, Urine Ketones Negative, Urine Occult Blood 25 H, Urine Nitrite Negative, Urine Bilirubin Negative, Urine Urobilinogen Normal, Ur Leukocyte Esterase 25 H, Urine RBC 0-5 SEEN, Urine WBC 0-5 SEEN, Ur Squamous Epith Cells 0-5 SEEN, Urine Bacteria 0 SEEN, Hyaline Casts 0-5 SEEN, Fine Granular Casts 0-5 SEEN, Urine Mucus 0 SEEN Micro: Microbiology 11/28/24 14:44 Mucosa - Nose SARS-CoV-2, Influenza & RSV (PCR) - Final Rhythm Strip Rhythm Strip: Atrial flutter 2-1 conduction Rate: 140 Imaging Radiology Impression Chest X-Ray 11/28/24 14:29 IMPRESSION: Cardiomegaly without overt failure. Reading [facility] Assessment & Plan Assessment/Plan (1) Sepsis: QUALIFIERS: Severe sepsis shock status: with septic shock PLAN: Plan # Septic shock with unclear source -Patient febrile, tachycardic, tachypneic, hypotensive with elevated lactic acid of 2.7, elevated white count, elevated troponin -Chest x-ray with no acute infiltrate -UA does not appear overtly infectious -Will check viral panels - Patient has very slight elevation of AST and ALT of 47 and 53 respectively and alk phos 128, AST and ALT were slightly elevated in 2023 as well -Will check right upper quadrant ultrasound as there are no focal complaints that would lead to a source for the sepsis -May need ortega scan if further workup unrevealing or consider an ID consult - Fluid resuscitation: Patient received sepsis fluids, will continue IV fluids for maintenance as well, patient remains hypotensive after fluid resuscitation so phenylephrine ordered -Phenylephrine was chosen per cardiology recommendation as it was felt this would be less likely to cause patient to go back into a flutter/arrhythmia - Pancultured - Admit to the ICU per protocol -[employer] consult - Broad-spectrum antibiotics while awaiting culture and sensitivity data # A flutter with 2-1 conduction - Patient initially with heart rate of 180, when slowed with adenosine cardiology reviewed and thought it was consistent with a flutter with 2-1 block -Pt ultimately cardioverted in the ED and presently in NSR - Will check TSH - Order echocardiogram - Cardiology consult, cardiology already evaluated patient in ED -Now that pt is in sinus rhythm no BB advised at this time -It was advised to give full dose Lovenox at this time, however, this has been ordered # Elevated troponin - Suspected secondary to sepsis and tachycardia - Cardiology on board - Echo in the a.m. - Troponin is now down trended #DVT ppx: Lovenox subcu Xena Harris MD Time spent in the patient's overall evaluation, decision-making process, review of diagnostic data, adjustment of management, discussion with other providers, nursing and ancillary staff involved in patient's care documentation, 85 Minutes Sepsis Attestation Sepsis Alert: Yes Sepsis Attestation: Agree w/Sepsis Date exam was performed: 11/28/24 Time exam was performed: 17:30 Possible Source of Sepsis: Unknown Sepsis Organ Dysfunction Criteria Present: SBP < 90 mmHg or MAP < 65 mmHg, Lactic Acid > 2 mmol/L and Serum CO2 < 20 mmol/L (on BMP) Supportive Findings: Elevated lactic acid, elevated white blood cell count with left shift, tachycardic, initially tachypneic Fluid Resuscitation Fluid resuscitation indicated?: Yes Fluid Resuscitation ordered: 30 ml/kg fluid bolus ordered Sepsis Note Date exam was performed: 11/28/24 Time exam was performed: 20:34 Sepsis Attestation: Sepsis re-evaluation was performed Response to fluids: Non Fluid responsive hypotension and Vasopressors started Charges/Coding Visit Charges Inpatient E&M: 14078 Init Hosp L3
--- NOTE | 2024-11-28 19:41 | ECHOD_ITS ---
Reason For Study Reason For Study: ATRIAL FLUTTER/FIBRILLATION Procedure This was a 2D Doppler, Color Flow transthoracic echocardiogram. Exam performed portable in ICU/CCU. Left Ventricle Normal size and thickness. The LV systolic function is normal. EF is 65 %. Normal diastololic function. Right Ventricle Normal right ventricle. A moderator band is seen in the right ventricle. Atria The left and right atria are normal. Mitral Valve Mild (1+) mitral valve insufficiency. Tricuspid Valve Mild tricuspid valve insufficiency. Normal pulmonary artery pressure. Aortic Valve Trisinus/trileaflet aortic valve. Pulmonic Valve The pulmonic valve is not well visualized. Great Vessels Normal sized aortic root. Pericardium/Pleural No pericardial effusion. MMode/2D Measurements & Calculations LVIDd: 4.8 cm IVSd: 0.90 cm Ao root diam: 3.1 cm LVIDs: 3.4 cm LVPWd: 0.77 cm RVDd: 3.1 cm FS: 30.3 % LAV(MOD-bp): 67.1 ml LVAd ap4: 28.6 cm2 SV(MOD-sp4): 61.4 ml LAV(MOD-bp) Indexed: 33.7 ml/m2 LVLd ap4: 7.3 cm SI(MOD-sp4): 30.8 ml/m2 LAV(MOD-sp2): 62.1 ml EDV(MOD-sp4): 92.3 ml LAV(MOD-sp4): 68.7 ml EDV(sp4-el): 95.3 ml LVAs ap4: 14.7 cm2 LVLs ap4: 6.0 cm ESV(MOD-sp4): 30.9 ml ESV(sp4-el): 30.7 ml EF(MOD-sp4): 66.5 % EF(sp4-el): 67.8 % SV(sp4-el): 64.6 ml LA A4 area: 21.3 cm2 LA dimension(2D): 3.9 cm RA A4 area: 15.0 cm2 TAPSE: 1.9 cm Time Measurements MV dec time: 0.16 sec Doppler Measurements & Calculations MV E max dusty: 84.2 cm/sec Lat Peak E' Dusty: 22.3 cm/sec Med Peak E' Dusty: 16.9 cm/sec MV A max dusty: 57.2 cm/sec E/E' lat: 3.8 E/E' med: 5.0 MV E/A: 1.5 MV V2 max: 92.5 cm/sec MV P1/2t max dusty: 90.2 cm/sec Ao V2 max: 172.5 cm/sec MV max P.4 mmHg MV P1/2t: 39.2 msec Ao max P.9 mmHg MV V2 mean: 57.9 cm/sec Ao V2 mean: 117.3 cm/sec MV mean P.5 mmHg MV dec slope: 674.3 cm/sec2 Ao mean P.3 mmHg MV V2 VTI: 16.9 cm MVA(P1/2t): 5.6 cm2 Ao V2 VTI: 28.9 cm AV (velocity ratio): 0.67 LV V1 max: 116.8 cm/sec PA V2 max: 106.3 cm/sec TR max dusty: 275.7 cm/sec LV V1 max P.5 mmHg PA V2 mean: 79.3 cm/sec TR max P.4 mmHg LV V1 mean P.1 mmHg LV V1 mean: 82.9 cm/sec LV V1 VTI: 19.5 cm ECHO/Echo Complete Interpretation Summary The LV systolic function is normal. EF is 65 %. Mild tricuspid valve insufficiency. Mild (1+) mitral valve insufficiency. Ordering Physician: Xena Harris Referring Physician: Haja Sow Performed By: Jessica Davila, AMAURI, RVT
--- NOTE | 2024-11-28 19:50 | US_ITS ---
PROCEDURE: LIVER 11/28/2024 REASON FOR EXAM: INCREASED LFTS COMPARISON: None FINDINGS: Liver: Diffusely echogenic suggesting fatty infiltration. Measures 17.8 cm in longitudinal dimension. There is an ill-defined echogenicity in the right hepatic lobe measuring 5.2 x 5.6 x 5.4 cm. Gallbladder: No stones, sludge, wall thickening or tenderness. Negative sonographic Hampton's sign per technologist report. Common bile duct: Normal measuring 5 mm. Pancreas: Visualized portions are sonographically unremarkable. Right kidney: There are numerous anechoic lesions measuring up to 4.4 cm, and shadowing echogenicities measuring up to 1.5 cm. US/Liver IMPRESSION: 1. No acute finding. 2. Hepatic steatosis with mild hepatomegaly. 3. Suggestion of an echogenic mass in the right hepatic lobe measuring up to 5 .6 cm in size. Recommend multiphase liver CT or MRI for further evaluation, which may be performed on a non-emergent basis. 4. Irregular appearance of the right kidney with multiple cysts and calcificat ions, as could be seen with a cystic kidney disease or xanthogranulomatous pyelonephritis. Recommend attention on the foll ow-up exam, or dedicated imaging performed sooner if clinically warranted. Reading Location: [facility]
--- NOTE | 2024-11-28 19:55 | RAD_ITS ---
PROCEDURE: CHEST 1 VIEW (PORTABLE) 11/28/2024 REASON FOR EXAM: CENTRAL LINE PLACEMENT TECHNIQUE: Frontal view of the chest. COMPARISON: Chest radiograph dated 11/28/2024 FINDINGS: Hardware: Interval placement of a right-sided central line with tip terminating near the expected location of the right atrium. Heart: Cardiac and mediastinal contours are prominent, similar to prior. Lungs: The lungs are clear. No evident pneumothorax. Bones: The bones are unremarkable. RAD/Chest 1 View (Portable) IMPRESSION: Right-sided central line tip terminates at the expected location of the right a trium. Reading Location: [facility]
[2024-11-28] MEDS: Vancomycin HCl 2,000 MG in 0.9% Normal Saline (500mL Bag) 500 ML 250 MG IV (20:06)
[2024-11-28 20:27] LABS: Troponin T High Sens 4 HR 93 ng/L (<=14)
[2024-11-28 22:09] LABS: Lactic Acid 1.1 mmol/L (0.0-2.0)
--- NOTE | 2024-11-28 22:25 | PCM.RX.CS ---
Consult Antibiotic Management Pharmacy has been consulted to manage selected antibiotic: Vancomycin Type of Intervention Type of Consult: New start Suspected Infection Suspected Infection: Sepsis Labs Labs: Sodium 132 mmol/L (133-145) L 11/28/24 14:25 Potassium 3.5 mmol/L (3.3-5.1) 11/28/24 14:25 Chloride 99 mmol/L (98-108) 11/28/24 14:25 Carbon Dioxide 17.4 mmol/L (21.0-32.0) L 11/28/24 14:25 Anion Gap 15 (5-15) 11/28/24 14:25 BUN 21 mg/dL (4-19) H 11/28/24 14:25 Creatinine 0.81 mg/dL (0.70-1.20) 11/28/24 14:25 Est GFR (MDRD) Non-Af 87 (>60) 11/28/24 14:25 BUN/Creatinine Ratio 26.0 RATIO (10-20) H 11/28/24 14:25 Glucose 143 mg/dL (70-99) H 11/28/24 14:25 Microbiology Microbiology: Microbiology 11/28/24 14:44 Mucosa - Nose SARS-CoV-2, Influenza & RSV (PCR) - Final Dosing Weight Weight used for dosin kg Estimated Creatinine Clearance Estimated Creatinine Clearance: 92 Goal Trough Goal Trough: 15-20 mcg/mL Pharmacy Plan for Drug Dosing Pharmacy Plan for Drug Dosing: Pharmacy Service will continue to monitor and adjust dosing as required. Follow-Up Labs Follow-Up Labs: Trough: Vancomycin Date/Time Labs Ordered Labs to be done on [date and time ordered]: 11/30/24 @4656
[2024-11-28] MEDS: Enoxaparin 100 MG/ML Syringe 90 MG SC (22:34)
[2024-11-28] MEDS: 0.9% Normal Saline (1000mL) 1,000 ML 100 ML IV (22:35)
[2024-11-29] VITALS (32 sets, daily range): BP systolic 89–154; BP diastolic 50–97; PULSE 88–170; RESP 14–50; TEMP 36.4–40.4; O2SAT 92–100; BMI 35.3
[2024-11-29] MEDS: Acetaminophen 325 MG Tablet 650 MG PO ×2 (02:01→23:40)
[2024-11-29] MEDS: Metoprolol Tartrate 5 MG/5 ML Vial 1.25 MG IV (02:39)
[2024-11-29 03:34] LABS: Magnesium 1.5 mg/dL (1.5-2.2); Thyroid Stim Hormone (TSH) 0.842 uIU/mL (0.300-4.200)
--- NOTE | 2024-11-29 03:47 | NURSING ---
Pt suddenly in and out of SVT up to 167 and vacillating back down to ST 110. Temperature is elevated at 100.5F. BP remains stable and pt is asymptomatic. Denies chest pain, shortness of breath, palpitations, dizziness or nausea. Notified and spoke to Dr. Benítez who ordered 1.25 Lopressor IVP x 1 now and to draw morning labs at this time. RN completed administration of Lopressor and pt's HR dropped back into NSR at 98 BPM. Will continue to monitor with Q15 min vitals
[2024-11-29 04:00] LABS: Absolute Lymphocyte Count 1.13 X10^3/uL (0.83-4.51); Absolute Neutrophil Count 18.8 X10^3/uL (2.0-7.7); Basophil# 0.07 X10^3/uL; Basophil% 0.3 % (0-1); Hematocrit 30.6 % (37-47); Hemoglobin 10.1 g/dL (12.0-15.0); Lymphocyte # 1.13 X10^3/ul (0.83-4.51); Lymphocyte % 5.4 % (19-41); Mean Corpuscular Hgb 26.6 pg (27.0-32.0); Mean Corpuscular Volume 80.5 fL (81-99); Mean Platelet Vol. 9.1 fl (6.2-12.0); Monocyte# 0.84 X10^3/uL; NRBC Flagged by Analyzer 0 % (0-5); Neutrophil # 18.84 X10^3/uL (2.7-7.7); Neutrophil % 89.4 % (47-70); POSITIVE MORPHOLOGY YES; Platelet Count 283 K/mm3 (150-450); RBC Distribution Width SD 43.8 fl (35.1-43.9); White Blood Count 21.1 K/mm3 (4.4-11.0)
[2024-11-29 04:04] LABS: Differential Indicated SCAN CRITERIA MET
[2024-11-29 04:07] LABS: ALB/GLOB Ratio 0.7 RATIO (0.9-2.4); AST(SGOT) 62 U/L (<=31); Alanine Aminotransfer ALT/SGPT 75 U/L (<=34); Alkaline Phosphatase 115 U/L (35-104); Anion Gap 9 (5-15); BUN 12 mg/dL (4-19); BUN/Creat Ratio 20.9 RATIO (10-20); Calcium,Total 7.9 mg/dL (7.6-11.0); Carbon Dioxide 18.5 mmol/L (21.0-32.0); Chloride 107 mmol/L (98-108); Creatinine, Serum 0.57 mg/dL (0.70-1.20); EST Glomerular Filtration Rate 109 (>60); Estimated Creatinine Clearance 118.72 ml/min (50-250); Globulin 4.1 g/dL (2.2-4.2); Glucose 186 mg/dL (70-99); Potassium 3.1 mmol/L (3.3-5.1); Protein, Total 7.1 g/dL (5.9-8.4); Sodium Level 134 mmol/L (133-145); Total Bilirubin 1.21 mg/dL (0.00-1.30)
[2024-11-29 05:19] LABS: Differential Comment SCANNED
[2024-11-29] MEDS: Piperacil/Tazobactam 3.375 GM in 0.9% Normal Saline (50mL MB+) 50 ML IV ×3 (06:08→22:23)
[2024-11-29] MEDS: Adenosine 6 MG/2 ML Syringe IV (07:08)
[2024-11-29] MEDS: Adenosine 6 MG/2 ML Syringe 12 MG IV (07:09)
[2024-11-29] MEDS: Metoprolol Tartrate 5 MG/5 ML Vial 2.5 MG IV (07:11)
--- NOTE | 2024-11-29 07:15 | NURSING ---
At approximately 0650, pt called to ask for assistance to have BM. RN presented to bedside and pt appeared cyanotic, with tachypnea and rigors. See Vitals flowsheet; O2 was 82 and heart rate appeared to be SVT with rate in 180's. RN placed 2 L NC and called for assistance to other staff who called a rapid response. Rn instructed to pt perform valsalva manuever which did bring her HR to 130's for under one minute RT arrived and though pulse ox read 92%, pt continued to appear cyanotic and in distress. MD presented to bedside and EKG was performed. Showed SVT on EKG. Adenosine 6mg administered then 12 mg administered with very short term decrease in heart rate. Decision by MD to administer 5mg of Metoprolol which did slow the hear rate to 120s. ICU MD at bedside with oncbear day shift RN. Bedside report given to oncbear RN.
--- NOTE | 2024-11-29 07:30 | PN.HOSP_ITS ---
Reason for Visit Reason for Visit: Diagnoses Sepsis, unspecified organism (11/28/24) Unspecified atrial flutter (11/28/24) Other hypotension (11/28/24) Objective Data Objective Data Vital Signs: Vital Signs Temp Pulse Resp BP Pulse Ox O2 Del Method O2 Flow Rate 97.6 F L 92 18 107/64 94 Room Air 2 11/29/24 04:00 11/29/24 06:15 11/29/24 06:00 11/29/24 06:15 11/29/24 06:00 11/29/24 06:00 11/28/24 17:36 Oxygen Flow Rate (L/min) [4] 2 Oxygen Flow Rate (L/min) [3] 2 Oxygen Flow Rate (L/min) [2] 2 Oxygen Flow Rate (L/min) [1 ( 2 Initial Baseline)] Oxygen Flow Rate (L/min) 2 Oxygen Delivery Method [6] Room Air Oxygen Delivery Method [5] Room Air Oxygen Delivery Method [4] Nasal Cannula Oxygen Delivery Method [3] Nasal Cannula Oxygen Delivery Method [2] Nasal Cannula Oxygen Delivery Method [1 ( Nasal Cannula Initial Baseline)] Oxygen Delivery Method Room Air Weight: 193 lb 5.526 oz Body Mass Index (BMI) 35.3 Intake & Output: Intake and Output for Last 24 Hours 11/27/24 11/28/24 11/29/24 23:59 23:59 23:59 Intake Total 3760 / 3760 Output Total 750 / 750 420 / 420 Balance 3010 / 3010 -420 / -420 Lab / Micro Data 11/29/24 02:48 11/29/24 02:48 Labs: Laboratory Results - last 24 hr 11/28/24 14:25: WBC 18.3 H, RBC 4.31, Hgb 11.5 L, Hct 33.9 L, MCV 78.7 L, MCH 26.7 L, MCHC 33.9, RDW Std Deviation 41.9, RDW Coeff of [place] 14.6, Plt Count 308, MPV 8.5, Immature Gran % (Auto) 0.500, Neut % (Auto) 88.1 H, Lymph % (Auto) 6.2 L, [place] % (Auto) 4.9, Eos % (Auto) 0.1, Baso % (Auto) 0.2, Absolute Neuts (auto) 16.1 H, Absolute Lymphs (auto) 1.14, Nucleated RBC % 0, PT 15.4 H, INR 1.2, APTT 31.5, Sodium 132 L, Potassium 3.5, Chloride 99, Carbon Dioxide 17.4 L, Anion Gap 15, BUN 21 H, Creatinine 0.81, Estim Creat Clear Calc 92.40, Est GFR (MDRD) Non-Af 87, BUN/Creatinine Ratio 26.0 H, Glucose 143 H, Lactic Acid 2.7 H*, Calcium 9.0, Total Bilirubin 0.62, AST 47 H, ALT 53 H, Alkaline Phosphatase 128 H, Troponin T High Sens 124 H*, Total Protein 8.1, Albumin 3.5, Globulin 4.6 H, A lbumin/Globulin Ratio 0.8 L 11/28/24 16:28: Troponin T Hi Sens 2 Hr 145 H*, Urine Color Yellow, Urine Clarity Clear, Urine pH 6.0, Ur Specific [place] 1.010, Urine Protein 30 H, Urine Glucose (UA) Normal, Urine Ketones Negative, U rine Occult Blood 25 H, Urine Nitrite Negative, Urine Bilirubin Negative, Urine Urobilinogen Normal, Ur Leukocyte Esterase 25 H, Urine RBC 0-5 SEEN, Urine WBC 0-5 SEEN, Ur Squamous Epith Cells 0-5 SEEN, Urine Bacteria 0 SEEN, Hyaline Casts 0-5 SEEN, Fine Granular Casts 0-5 SEEN, Urine Mucus 0 SEEN 11/28/24 19:19: Troponin T Hi Sens 4Hr 93 H* 11/28/24 19:26: Lactic Acid 1.1 11/29/24 02:48: WBC 21.1 H, RBC 3.80 L, Hgb 10.1 L, Hct 30.6 L, MCV 80.5 L, MCH 26.6 L, MCHC 33.0, RDW Std Deviation 43.8, RDW Coeff of [place] 15.0 H, Plt Count 283, MPV 9.1, Immature Gran % (Auto) 0.900, Neut % (Auto) 89.4 H, Lymph % (Auto) 5.4 L, [place] % (Auto) 4.0, Eos % (Auto) 0.0, Baso % (Auto) 0.3, Absolute Neuts (auto) 18.8 H, Absolute Lymphs (auto) 1.13, Nucleated RBC % 0, Differential Comment SCANNED, Sodium 134, Potassium 3.1 L, Chloride 107, Carbon Dioxide 18.5 L, Anion Gap 9, BUN 12, Creatinine 0.57 L, Estim Creat Clear Calc 118.72, Est GFR (MDRD) Non-Af 109, BUN/Creatinine Ratio 20.9 H, Glucose 186 H, Calcium 7.9, Magnesium 1.5, Total Bilirubin 1.21, AST 62 H, ALT 75 H, Alkaline Phosphatase 115 H, Total Protein 7.1, Albumin 3.0 L, Globulin 4.1, Albumin/Globulin Ratio 0.7 L, TSH 0.842 Micro: Microbiology 11/28/24 22:25 Mucosa - Nasopharyngeal Respiratory Panel (PCR) - Final 11/28/24 14:44 Mucosa - Nose SARS-CoV-2, Influenza & RSV (PCR) - Final Radiography Diagnostic Testing: Radiology Impression Chest X-Ray 11/28/24 14:29 IMPRESSION: Cardiomegaly without overt failure. Reading Location[facility] Liver Ultrasound 11/28/24 19:50 IMPRESSION: 1. No acute finding. 2. Hepatic steatosis with mild hepatomegaly. 3. Suggestion of an echogenic mass in the right hepatic lobe measuring up to 5.6 cm in size. Recommend multiphase liver CT or MRI for further evaluation, which may be performed on a non-emergent basis. 4. Irregular appearance of the right kidney with multiple cysts and calcifications, as could be seen with a cystic kidney disease or xanthogranulomatous pyelonephritis. Recommend attention on the follow-up exam, or dedicated imaging performed sooner if clinically warranted. Reading Location: [facility] Chest X-Ray 11/28/24 19:55 IMPRESSION: Right-sided central line tip terminates at the expected location of the right atrium. Reading Location: [facility] Rhythm Strip Rhythm Strip: Atrial flutter 2-1 conduction Rate: 140 Physical Exam Narrative Seen and examined As per case coordinator talk to patient's , she had some tube placed in the right kidney probably for infection in 2007 and tube placement that could not be removed. In repeat surgery she had a small portion of the tube left probably because of technical difficulty. Unclear source of infection. About 6:55 AM, rapid response was called for atrial tachyarrhythmia Physical exam: General: Alert, Oriented x3, Cooperative HEENT: Atraumatic, PERRLA, EOMI, Normocephalic. Oral: Oral mucosa dry. No Gingival or Mucosal Lesions/ Ulcerations Neck: Supple, No JVD, Negative Carotid Bruits Chest wall/Lungs: Air entry diminished in bilateral lung bases. No crepitation/rhonchi Cardiovascular: Atrial flutter/atrial tachycardia, Normal S1,S2, No M/G/R Abdomen: Bowel Sounds Present, Soft, Non Tender, Non-Distended. Liver enlarged : No dysuria. No. Liver enlarged. Renal angle tenderness. No suprapubic tenderness. Extremities: No edema, Capillary Refill Less than 3 Seconds Skin: No rashes, No breakdown Musculoskeletal: No Tenderness to Palpation of Joints or Extremities Neurological: Cranial nerves II-XII grossly intact, DTR 2+/4. No acute focal neurological deficit. Psych/Mental Status: Normal Affect, Appropriate. Assessment & Plan Assessment/Plan (1) Sepsis: QUALIFIERS: Severe sepsis shock status: with septic shock PLAN: Plan 54-year-old female was brought to ED by EMS for generalized weakness, malaise for the last few weeks, fever 103 Fahrenheit by squad, heart rate 197/min. No chest pain tightness or shortness of breath. She also headache on Monday night, one-time nausea and vomiting in the ED. On day of admission she started feeling palpitation. # Sepsis of unclear source: Patient being admitted in ICU. Casino Runner consulted. -Patient febrile, tachycardic, tachypneic, leukocytosis, hypotensive with evidence of organ dysfunction including hypotension, elevated lactic acid of 2.7. Patient required IV fluid as per sepsis protocol but did not require vasopressor yet. Chest x-ray UA does not show source of infection. Respiratory panel negative. Triple PCR for SARS-CoV-2, flu and RSV are negative Patient has very slight elevation of AST and ALT of 47 and 53 respectively and alk phos 128, AST and ALT were slightly elevated in 2023 as well -RUQ sonogram shows mild hepatomegaly, echogenic mass of 5.6 cm in right hepatic lobe. 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 Broad-spectrum antibiotics while awaiting culture and sensitivity data 11/29: Had fever 101.5 Fahrenheit in the morning. Chest abdomen pelvis CT ordered as source of infection remains oblivious. # A flutter with 2-1 conduction/SVT - Patient initially with heart rate of 180, when slowed with adenosine cardiology reviewed and thought it was consistent with a flutter with 2-1 block -Pt ultimately cardioverted in the ED and presently in NSR - Cardiology consult, cardiology already evaluated patient in ED Hadoop Developer recommended no anticoagulation unless atrial flutter recurs after resolution of sepsis. Started on baby aspirin. 11/29: In the morning today, rapid response was called around 655 for atrial tachycardia. Different EKGs were done. First EKG shows atrial flutter, irregular pattern with PVCs. P waves hidden in T waves. Patient received adenosine 6 milligram, then 12 mg and then metoprolol 5 mg and patient converted to sinus tachycardia with first AV block, heart rate ended 3.5. -TSH 0.842. Evaluated by senior pensions administrator. Recommended metoprolol 25 mg Q6 hourly by senior pensions administrator Dr. Kem duron. Was seen by Dr. Rubio in the morning # Elevated troponin Troponins 124, 145, 93. 2D echo shows EF 65% with mild TR. Mild MR. - Troponin is now down trended #DVT ppx: Lovenox subcut DVT dose 40 mL subcu daily
--- NOTE | 2024-11-29 07:38 | CON.PCM.CC_ITS ---
Assessment & Plan Assessment/Plan (1) Sepsis: QUALIFIERS: Severe sepsis shock status: with septic shock PLAN: Plan RECOMMENDATIONS: 1. Continue empiric antimicrobials for now, pending culture workup. 2. Obtain CT imaging of the chest/abdomen/pelvis, given unclear source of infection. 3. Check LIZZ with reflex, ANCA and CCP antibodies. 4. Check procalcitonin. 5. Rate/rhythm control strategy per cardiology recommendations. 6. Lovenox for DVT prophylaxis. 7. Echocardiogram is pending. IMPRESSIONS: 1. Sepsis The patient presented to the hospital with presumptive sepsis with unclear source, with evidence of organ dysfunction as evidenced by lactic acidemia. Given the unclear source of her fever, recommend obtaining CT imaging of the chest/abdomen/pelvis. In the interim, will check procalcitonin and perform an autoimmune workup as well. The patient previously did have a positive LIZZ screen. For now, I agree with continuing empiric antibiotics, pending culture data. The patient has never required any form of vasopressor support. She remains hemodynamically stable this morning. 2. Atypical atrial flutter/mild troponin elevation Continue rate/rhythm control strategy per cardiology recommendations. Echocardiogram is currently pending. This note was generated with Jascha dictation software. It may contain incorrect words, spelling, and punctuation that were not noted in checking the note before signing. HPI Consult Data Date of Consult: 11/29/24 HPI Narrative Reason for Consultation: Sepsis HPI Narrative: The patient is a 54-year-old female, with a history as outlined below, who presented to the emergency department on November 28 with complaints of generalized malaise, fatigue, fever and headache of approximately 3 days duration. She denied any recent sick contact exposure. The patient has no prior significant medical history. She does not take any medications at her baseline. She denied any prior cardiac history. On presentation to the emergency department, the patient was documented to have a temperature of 103.2 ?F. She was notably tachycardic and tachypneic. Laboratory evaluation revealed a white blood cell count of 18,000. Chemistry profile was unremarkable. Lactate was elevated at 2.7. Troponin was increased at 124. TSH was within normal limits. Urine analysis was unremarkable. Chest x-ray demonstrated no acute cardiopulmonary process. COVID, influenza and RSV PCR's were negative. Respiratory viral panel was negative. Blood and urine cultures were subsequently collected. The patient was initiated on antimicrobial therapy. In the emergency department, the patient developed atrial flutter with 2-1 conduction for which she was subsequently cardioverted due to hypotension. Early this morning, the patient again developed atrial flutter with variable conduction and received adenosine and beta-blockade. She subsequently converted back to normal sinus rhythm. The patient is otherwise hemodynamically stable and maintaining appropriate oxygen saturations on room air. She has no specific complaints. [facility] Medical History Hysterectomy planned Medical History no medical history Home Medications ?Medication ?Instructions ?Recorded ?Last Taken ?Type NK 11/28/24 Unknown History Allergy/AdvReac Type Severity Reaction Status Date / Time Sulfa (Sulfonamide Allergy Anaphylaxis Verified 11/28/24 14:20 Antibiotics) Family History (Updated 11/28/24 @ 21:10 by Marissa Whitman) Father Hypertension Brother Advanced cirrhosis of liver Family History no significant family his Social History household members: spouse and children housing: house Smoking Status: Never smoker ROS ROS Narrative 10 systems were reviewed with pertinent positives as noted in the HPI above. Physical Exam Const alert and no apparent distress General Appearance: cooperative HEENT normocephalic, head/scalp atraumatic and moist oral mucous membranes Eyes PERRL, EOMs intact bilaterally and conjunctivae normal Neck supple General: trachea midline Chest inspection of chest normal Resp normal respiratory effort Auscultation: Negative for rales, rhonchi or wheezes Cardio regular rate and regular rhythm GI normal to inspection, nondistended, normoactive bowel sounds Extremity no clubbing, cyanosis or edema Skin no rashes or lesions noted Neuro CN's II-XII intact bilaterally, moves all extremities and no focal motor deficits Psych cooperative and affect normal Lab / Micro Data 11/29/24 02:48 11/29/24 02:48 Labs: Laboratory Results - last 24 hr 11/28/24 14:25: WBC 18.3 H, RBC 4.31, Hgb 11.5 L, Hct 33.9 L, MCV 78.7 L, MCH 26.7 L, MCHC 33.9, RDW Std Deviation 41.9, RDW Coeff of [place] 14.6, Plt Count 308, MPV 8.5, Immature Gran % (Auto) 0.500, Neut % (Auto) 88.1 H, Lymph % (Auto) 6.2 L, [place] % (Auto) 4.9, Eos % (Auto) 0.1, Baso % (Auto) 0.2, Absolute Neuts (auto) 16.1 H, Absolute Lymphs (auto) 1.14, Nucleated RBC % 0, PT 15.4 H, INR 1.2, APTT 31.5, Sodium 132 L, Potassium 3.5, Chloride 99, Carbon Dioxide 17.4 L, Anion Gap 15, BUN 21 H, Creatinine 0.81, Estim Creat Clear Calc 92.40, Est GFR (MDRD) Non- Af 87, BUN/Creatinine Ratio 26.0 H, Glucose 143 H, Lactic Acid 2.7 H*, Calcium 9.0, Total Bilirubin 0.62, AST 47 H, ALT 53 H, Alkaline Phosphatase 128 H, T roponin T High Sens 124 H*, Total Protein 8.1, Albumin 3.5, Globulin 4.6 H, A lbumin/Globulin Ratio 0.8 L 11/28/24 16:28: Troponin T Hi Sens 2 Hr 145 H*, Urine Color Yellow, Urine Clarity Clear, Urine pH 6.0, Ur Specific [place] 1.010, Urine Protein 30 H, Urine Glucose (UA) Normal, Urine Ketones Negative, Urine Occult Blood 25 H, Urine Nitrite Negative, Urine Bilirubin Negative, Urine Urobilinogen Normal, Ur Leukocyte Esterase 25 H, Urine RBC 0-5 SEEN, Urine WBC 0-5 SEEN, Ur Squamous Epith Cells 0-5 SEEN, Urine Bacteria 0 SEEN, Hyaline Casts 0-5 SEEN, Fine Granular Casts 0-5 SEEN, Urine Mucus 0 SEEN 11/28/24 19:19: Troponin T Hi Sens 4Hr 93 H* 11/28/24 19:26: Lactic Acid 1.1 11/29/24 02:48: WBC 21.1 H, RBC 3.80 L, Hgb 10.1 L, Hct 30.6 L, MCV 80.5 L, MCH 26.6 L, MCHC 33.0, RDW Std Deviation 43.8, RDW Coeff of [place] 15.0 H, Plt Count 283, MPV 9.1, Immature Gran % (Auto) 0.900, Neut % (Auto) 89.4 H, Lymph % (Auto) 5.4 L, [place] % (Auto) 4.0, Eos % (Auto) 0.0, Baso % (Auto) 0.3, Absolute Neuts (auto) 18.8 H, Absolute Lymphs (auto) 1.13, Nucleated RBC % 0, Differential Comment SCANNED, Sodium 134, Potassium 3.1 L, Chloride 107, Carbon Dioxide 18.5 L, Anion Gap 9, BUN 12, Creatinine 0.57 L, Estim Creat Clear Calc 118.72, Est GFR (MDRD) Non-Af 109, BUN/Creatinine Ratio 20.9 H, Glucose 186 H, Calcium 7.9, Magnesium 1.5, Total Bilirubin 1.21, AST 62 H, ALT 75 H, Alkaline Phosphatase 115 H, Total Protein 7.1, Albumin 3.0 L, Globulin 4.1, Albumin/Globulin Ratio 0.7 L, TSH 0.842 Micro: Microbiology 11/28/24 22:25 Mucosa - Nasopharyngeal Respiratory Panel (PCR) - Final 11/28/24 14:44 Mucosa - Nose SARS-CoV-2, Influenza & RSV (PCR) - Final Rhythm Strip Rhythm Strip: Atrial flutter 2-1 conduction Rate: 140 Imaging Radiology Impression Chest X-Ray 11/28/24 14:29 IMPRESSION: Cardiomegaly without overt failure. Reading Location[facility] Liver Ultrasound 11/28/24 19:50 IMPRESSION: 1. No acute finding. 2. Hepatic steatosis with mild hepatomegaly. 3. Suggestion of an echogenic mass in the right hepatic lobe measuring up to 5.6 cm in size. Recommend multiphase liver CT or MRI for further evaluation, which may be performed on a non-emergent basis. 4. Irregular appearance of the right kidney with multiple cysts and calcifications, as could be seen with a cystic kidney disease or xanthogranulomatous pyelonephritis. Recommend attention on the follow-up exam, or dedicated imaging performed sooner if clinically warranted. Reading Location: [id number] Chest X-Ray 11/28/24 19:55 IMPRESSION: Right-sided central line tip terminates at the expected location of the right atrium. Reading Location: [facility] Charges/Coding Visit Charges Inpatient E&M: 78629 Init Hosp L3
[2024-11-29] MEDS: 0.9% Normal Saline (1000mL) 1,000 ML 100 ML IV (08:21)
[2024-11-29] MEDS: Potassium Chloride 10mEq/100mL 10 MEQ/100 ML IV.SOLN. 100 MEQ IV BOLUS ×2 (08:37→09:42)
[2024-11-29 08:48] LABS: Platelet Count 266 K/mm3 (150-450); Reticulocyte Count 0.97 % (0.5-1.5)
[2024-11-29] MEDS: Vancomycin HCl 1,750 MG in 0.9% Normal Saline (500mL Bag) 500 ML 250 MG IV ×2 (08:58→20:56)
[2024-11-29] MEDS: Enoxaparin 100 MG/ML Syringe 90 MG SC (09:42)
[2024-11-29] MEDS: Metoprolol Tartrate 25 MG Tablet PO ×3 (09:45→23:40)
[2024-11-29 09:52] LABS: Bilirubin, Direct 0.76 mg/dL (0.00-0.30); Magnesium 1.5 mg/dL (1.5-2.2)
--- NOTE | 2024-11-29 10:05 | PN.CARD_ITS ---
Subjective Subjective Feeling better. Denies any complaints this morning. Spiked temperature this morning. Another brief episode of SVT/a flutter this morning. Converted with adenosine. Objective Data Vital Signs: Vital Signs Temp Pulse Resp BP Pulse Ox O2 Del Method O2 Flow Rate 99.1 F 95 32 H 112/61 98 Nasal Cannula 2 11/29/24 08:00 11/29/24 09:45 11/29/24 08:00 11/29/24 08:00 11/29/24 08:00 11/29/24 08:00 11/29/24 08:00 Oxygen Flow Rate (L/min) [4] 2 Oxygen Flow Rate (L/min) [3] 2 Oxygen Flow Rate (L/min) [2] 2 Oxygen Flow Rate (L/min) [1 ( 2 Initial Baseline)] Oxygen Flow Rate (L/min) 2 Oxygen Delivery Method [6] Room Air Oxygen Delivery Method [5] Room Air Oxygen Delivery Method [4] Nasal Cannula Oxygen Delivery Method [3] Nasal Cannula Oxygen Delivery Method [2] Nasal Cannula Oxygen Delivery Method [1 ( Nasal Cannula Initial Baseline)] Oxygen Delivery Method Nasal Cannula Weight: 193 lb 5.526 oz Body Mass Index (BMI) 35.3 Intake & Output: Intake and Output for Last 24 Hours 11/27/24 11/28/24 11/29/24 23:59 23:59 23:59 Intake Total 3760 / 3760 1138.34 / 1138.34 Output Total 750 / 750 420 / 420 Balance 3010 / 3010 718.34 / 718.34 Lab / Micro Data 11/29/24 02:48 11/29/24 02:48 Labs: Laboratory Results - last 24 hr 11/28/24 14:25: WBC 18.3 H, RBC 4.31, Hgb 11.5 L, Hct 33.9 L, MCV 78.7 L, MCH 26.7 L, MCHC 33.9, RDW Std Deviation 41.9, RDW Coeff of Marbin 14.6, Plt Count 308, MPV 8.5, Immature Gran % (Auto) 0.500, Neut % (Auto) 88.1 H, Lymph % (Auto) 6.2 L, Carlton % (Auto) 4.9, Eos % (Auto) 0.1, Baso % (Auto) 0.2, Absolute Neuts (auto) 16.1 H, Absolute Lymphs (auto) 1.14, Nucleated RBC % 0, PT 15.4 H, INR 1.2, APTT 31.5, Sodium 132 L, Potassium 3.5, Chloride 99, Carbon Dioxide 17.4 L, Anion Gap 15, BUN 21 H, Creatinine 0.81, Estim Creat Clear Calc 92.40, Est GFR (MDRD) Non- Af 87, BUN/Creatinine Ratio 26.0 H, Glucose 143 H, Lactic Acid 2.7 H*, Calcium 9.0, Total Bilirubin 0.62, AST 47 H, ALT 53 H, Alkaline Phosphatase 128 H, T roponin T High Sens 124 H*, Total Protein 8.1, Albumin 3.5, Globulin 4.6 H, A lbumin/Globulin Ratio 0.8 L 11/28/24 16:28: Troponin T Hi Sens 2 Hr 145 H*, Urine Color Yellow, Urine Clarity Clear, Urine pH 6.0, Ur Specific [place] 1.010, Urine Protein 30 H, Urine Glucose (UA) Normal, Urine Ketones Negative, Urine Occult Blood 25 H, Urine Nitrite Negative, Urine Bilirubin Negative, Urine Urobilinogen Normal, Ur Leukocyte Esterase 25 H, Urine RBC 0-5 SEEN, Urine WBC 0-5 SEEN, Ur Squamous Epith Cells 0-5 SEEN, Urine Bacteria 0 SEEN, Hyaline Casts 0-5 SEEN, Fine Granular Casts 0-5 SEEN, Urine Mucus 0 SEEN 11/28/24 19:19: Troponin T Hi Sens 4Hr 93 H* 11/28/24 19:26: Lactic Acid 1.1 11/29/24 02:48: WBC 21.1 H, RBC 3.80 L, Hgb 10.1 L, Hct 30.6 L, MCV 80.5 L, MCH 26.6 L, MCHC 33.0, RDW Std Deviation 43.8, RDW Coeff of Marbin 15.0 H, Plt Count 283, MPV 9.1, Immature Gran % (Auto) 0.900, Neut % (Auto) 89.4 H, Lymph % (Auto) 5.4 L, Carlton % (Auto) 4.0, Eos % (Auto) 0.0, Baso % (Auto) 0.3, Absolute Neuts (auto) 18.8 H, Absolute Lymphs (auto) 1.13, Nucleated RBC % 0, Differential Comment SCANNED, Sodium 134, Potassium 3.1 L, Chloride 107, Carbon Dioxide 18.5 L, Anion Gap 9, BUN 12, Creatinine 0.57 L, Estim Creat Clear Calc 118.72, Est GFR (MDRD) Non-Af 109, BUN/Creatinine Ratio 20.9 H, Glucose 186 H, Calcium 7.9, Magnesium 1.5, Total Bilirubin 1.21, AST 62 H, ALT 75 H, Alkaline Phosphatase 115 H, Total Protein 7.1, Albumin 3.0 L, Globulin 4.1, Albumin/Globulin Ratio 0.7 L, TSH 0.842 11/29/24 08:25: Retic Count 0.97, Immature Retic Fraction 11.30, Retic Hgb Equivalent 26.0 L, Magnesium 1.5, Direct Bilirubin 0.76 H, LAUREN-1 Antibody TNP 11/29/24 08:25: LAUREN-1 Antibody TNP, Sm (Clark) Antibody TNP 11/29/24 08:25: Sm (Clark) Antibody TNP, IMAGING SERVICES DIRECTOR Antibody TNP 11/29/24 08:25: IMAGING SERVICES DIRECTOR Antibody TNP, Scl-70 Scleroderma Ab TNP 11/29/24 08:25: Scl-70 Scleroderma Ab TNP, Antichromatin Antibodies TNP 11/29/24 08:25: Antichromatin Antibodies TNP, Centromere B Antibody TNP 11/29/24 08:25: Centromere B Antibody TNP Micro: Microbiology 11/28/24 22:25 Mucosa - Nasopharyngeal Respiratory Panel (PCR) - Final 11/28/24 14:44 Mucosa - Nose SARS-CoV-2, Influenza & RSV (PCR) - Final Rhythm Strip Rhythm Strip: Atrial flutter 2-1 conduction Rate: 140 Cardiology Labs/Tests 11/28/24 14:25: WBC 18.3 H, RBC 4.31, Hgb 11.5 L, Hct 33.9 L, MCV 78.7 L, MCH 26.7 L, MCHC 33.9, Plt Count 308, MPV 8.5, Immature Gran % (Auto) 0.500, Neut % (Auto) 88.1 H, Lymph % (Auto) 6.2 L, Carlton % (Auto) 4.9, Eos % (Auto) 0.1, Baso % (Auto) 0.2, Absolute Neuts (auto) 16.1 H, Nucleated RBC % 0, PT 15.4 H, INR 1.2, APTT 31.5, Sodium 132 L, Potassium 3.5, Chloride 99, Carbon Dioxide 17.4 L, Anion Gap 15, BUN 21 H, Creatinine 0.81, Est GFR (MDRD) Non-Af 87, B UN/Creatinine Ratio 26.0 H, Glucose 143 H, Lactic Acid 2.7 H*, Calcium 9.0, Total Bilirubin 0.62 11/28/24 16:28: Urine Color Yellow, Urine Clarity Clear, Urine pH 6.0, Ur Specific Wales 1.010, Urine Protein 30 H, Urine Glucose (UA) Normal, Urine Ketones Negative, Urine Occult Blood 25 H, Urine Nitrite Negative, Urine Bilirubin Negative, Urine Urobilinogen Normal, Ur Leukocyte Esterase 25 H, Urine RBC 0-5 SEEN, Urine WBC 0-5 SEEN 11/28/24 19:26: Lactic Acid 1.1 11/29/24 02:48: WBC 21.1 H, RBC 3.80 L, Hgb 10.1 L, Hct 30.6 L, MCV 80.5 L, MCH 26.6 L, MCHC 33.0, Plt Count 283, MPV 9.1, Immature Gran % (Auto) 0.900, Neut % (Auto) 89.4 H, Lymph % (Auto) 5.4 L, Carlton % (Auto) 4.0, Eos % (Auto) 0.0, Baso % (Auto) 0.3, Absolute Neuts (auto) 18.8 H, Nucleated RBC % 0, Sodium 134, P otassium 3.1 L, Chloride 107, Carbon Dioxide 18.5 L, Anion Gap 9, BUN 12, C reatinine 0.57 L, Est GFR (MDRD) Non-Af 109, BUN/Creatinine Ratio 20.9 H, G lucose 186 H, Calcium 7.9, Magnesium 1.5, Total Bilirubin 1.21 11/29/24 08:25: Magnesium 1.5, Direct Bilirubin 0.76 H Rhythm: EKG: ECHO: Stress Test: Cardiac Cath: PCI: CT Surgery: Holter monitor: EPS: PPM: CXR: Chest CT Scan: Radiography Diagnostic Testing: Radiology Impression Chest X-Ray 11/28/24 14:29 IMPRESSION: Cardiomegaly without overt failure. Electronically Signed By: Margarito Monson 11/28/2024 15:23 Reading Location[facility] Liver [facility]ound 11/28/24 19:50 IMPRESSION: 1. No acute finding. 2. Hepatic steatosis with mild hepatomegaly. 3. Suggestion of an echogenic mass in the right hepatic lobe measuring up to 5.6 cm in size. Recommend multiphase liver CT or MRI for further evaluation, which may be performed on a non-emergent basis. 4. Irregular appearance of the right kidney with multiple cysts and calcifications, as could be seen with a cystic kidney disease or xanthogranulomatous pyelonephritis. Recommend attention on the follow-up exam, or dedicated imaging performed sooner if clinically warranted. Reading Location: [id number] Chest X-Ray 11/28/24 19:55 IMPRESSION: Right-sided central line tip terminates at the expected location of the right atrium. Reading Location: [id number] Physical Exam Narrative Comfortable. No apparent distress. Lying flat in the bed. Heart sounds 1 and 2 noted. Chest clear to auscultation. No ankle edema. Assessment & Plan Assessment/Plan (1) Atrial fib/flutter, transient: PLAN: Atrial flutter/SVT in the setting of acute sepsis syndrome. Continue to monitor. Rate controlled. No anticoagulation unless atrial flutter recurs after resolution of her sepsis. Start on aspirin. (2) Sepsis: QUALIFIERS: Severe sepsis shock status: with septic shock PLAN: Febrile. Pyelonephritis raised as one possibility on ultrasound of abdomen. For CT scan this morning. Continue to manage as per critical care and internal medicine.
[2024-11-29 10:59] LABS: Phosphorus 1.8 mg/dL (2.7-4.5)
--- NOTE | 2024-11-29 11:00 | CASEMGMT ---
Addendum entered by Ángel Orozco 11/29/24 12:42: Strata: 1 Addendum entered by Ángel Orozco 11/29/24 12:40: Pt denies having any housing issues or concerns @ home. clarifies it was Dr Jason Oliva (urologist in [place]) that pt saw around 2017 (he is not certain on year) that did the lap procedure and removed most of the nephro tube. Pt states she does not see any specialists currently. Original Note: RN?CM?ENVIRONMENTAL MONITORING SPECIALIST?CM?to room to meet with patient for initial transition planning/care coordination?assessment.?RN?CM?introduced self and role at [facility].? Pt voices understanding and consents to?assessment?at this time.? Pt resting in bed in no distress at this time.? @ bedside. Pt is A/O at this time and answers all questions appropriately.?? Care providers, pharmacy, and demographics verified/updated at this time. PCP: [facility]. Pt was seeing Dr Sow, but he has retired. Pt sees other practitioners there now. Specialists: Preferred Pharmacy:[facility] @ [place]. Insurance: Raised[employer] Prescription Benefit:?none LNOK: , [place]. Pt has 7 adult children. Emergency Contact Only: Friend Mrs Christian Main: [phone]. She and Christian would know how to reach pt's , if needed. Living Arrangements: Lives w/ and 4 adult children in 2-story home w/ W/C entrance. Pt's [id number]-[id number] and xqnymrr-[id number] also live there. Anwahbo-ef-dpd is W/C bound. FFSU. Pt is independent w/ADL's and IADL's @ baseline. Transportation:?[employer]. 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 DME: ? Denies using any DME and denies needs.? HHC/SNF: No hx of either. Pt wishes to return home and states has no concerns with going home at time of discharge.?6 cl currently 24. However, pt has not been OOB yet. ? informed this RN CM that pt had a renal tube placed in 2006 d/t complications during hysterectomy surgery. He states pt was transferred to another hospital and then discharged home from there. He states they did not realize pt was to have the tube removed once she returned home. Then about 10 yrs later this was discovered and Dr Oliva (unsure of correct spelling) from [place] performed a lap procedure, removing most of the tube, but was not able to successfully remove all of it. states he had not informed anyone of this yet and was wondering if this could be cause of some of pt's current problems. Dr Mays and Dr Royal made aware. Pt and voices no further concerns/needs at this time.? Advised them to ask for?CM?if any further questions/concerns/needs arise.? They voice understanding.CM?to follow for discharge planning/needs.? PLAN:??Home w/ and family support. Jm BSN?RN?CM
[2024-11-29] MEDS: Aspirin E.C. 81 MG Tablet PO (11:40)
--- NOTE | 2024-11-29 12:02 | CT_ITS ---
EXAM: CT Abdomen and Pelvis Without and With Intravenous Contrast CLINICAL INDICATION: IRREGULAR ECHOGENICITY INRIGHT LIVER LOBE,5.6 CM TECHNIQUE: Axial computed tomography images of the abdomen and pelvis without and with intravenous contrast. This CT exam was performed using one or more of the following dose reduction techniques: automated exposure control, adjustment of the mA and/or kV according to patient size, and/or use of iterative reconstruction technique. COMPARISON: No relevant prior studies available. FINDINGS: LUNG BASES: Unremarkable. No mass. No consolidation. PLEURAL SPACE: Partially visualized bilateral pleural effusions. ABDOMEN: LIVER: Hypodense lesion of the right hepatic lobe measuring up to 7.4 cm. Associated septal enhancement and ill-defined margins, concerning for neoplastic process. GALLBLADDER AND BILE DUCTS: Unremarkable. No calcified stones. No ductal dilation. PANCREAS: Unremarkable. No mass. No ductal dilation. SPLEEN: Unremarkable. No splenomegaly. ADRENALS: Unremarkable. No mass. 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 An abandoned pigtail catheter is noted in the renal pelvis and proximal ureter. STOMACH AND BOWEL: Fecal retention in the colon consistent with constipation. No obstruction. No mucosal thickening. PELVIS: APPENDIX: No findings to suggest acute appendicitis. BLADDER: Urinary bladder decompressed by the urinary Pantoja catheter. No stones. REPRODUCTIVE: Unremarkable as visualized. ABDOMEN and PELVIS: INTRAPERITONEAL SPACE: Unremarkable. No free air. No significant fluid collection. BONES/JOINTS: No acute fracture. No dislocation. SOFT TISSUES: Unremarkable. VASCULATURE: Unremarkable. No abdominal aortic aneurysm. LYMPH NODES: Unremarkable. No enlarged lymph nodes. CT/CT Abd/Pelvis W/WO Contrast IMPRESSION: 1. Hypodense lesion of the right hepatic lobe measuring up to 7.4 cm. Associa raeann septal enhancement and ill-defined margins, concerning for neoplastic process. 2. Right hydronephrosis with air-fluid level in the renal collecting system ma y suggest emphysematous pyelonephritis. An abandoned pigtail catheter is noted in the renal pelvis and proximal ureter. 3. Fecal retention in the colon consistent with constipation. Reading Location: [facility]
--- NOTE | 2024-11-29 12:02 | CT_ITS ---
EXAM: CT Chest With Intravenous Contrast CLINICAL INDICATION: FUO TECHNIQUE: Axial computed tomography images of the chest with intravenous contrast. This CT exam was performed using one or more of the following dose reduction techniques: automated exposure control, adjustment of the mA and/or kV according to patient size, and/or use of iterative reconstruction technique. COMPARISON: No relevant prior studies available. FINDINGS: ARTIFACTS: Motion artifact. LUNGS AND PLEURAL SPACES: Bilateral pleural effusions with compressive atelectasis. 12 mm and 5 mm nodules in the left upper lobe. Metastasis can not be excluded. Mild lung emphysema. No pneumothorax. HEART: Unremarkable. No cardiomegaly. No significant pericardial effusion. No significant coronary artery calcifications. BONES/JOINTS: Unremarkable. No acute fracture. No dislocation. SOFT TISSUES: Unremarkable. VASCULATURE: Unremarkable. No thoracic aortic aneurysm. LYMPH NODES: Unremarkable. No enlarged lymph nodes. LIVER: Partially visualized hypodense lesion of the liver with peripheral enhancement measuring up to 7.[address] or MRI of the abdomen with contrast is recommended using hepatic mass protocol. CT/Chest WITH Contrast IMPRESSION: 1. Partially visualized hypodense lesion of the liver with peripheral enhancem ent measuring up to 7.[address] or MRI of the abdomen with contrast is recommended using hepatic mass protocol. 2. Bilateral pleural effusions with compressive atelectasis. 12 mm and 5 mm n odules in the left upper lobe. Metastasis can not be excluded. Reading Location: [facility]
--- NOTE | 2024-11-29 13:25 | PCM.HOSP.N ---
Hospitalist Note Triple phase CT abdomen and CT chest reviewed. There is hypodense lesion of right hepatic lobe about 7.4 cm which enhances on arterial phage and washout on venous phase. It has ill-defined margins therefore concerning for neoplastic process. It was also found right hydronephrosis with air-fluid level and renal collecting system suggestive of emphysematous pyelonephritis. An eminent pigtail catheter in renal pelvis and proximal ureter. CT chest with IV contrast shows bilateral pleural effusion with compressive atelectasis in 12 mm and 5 mm nodules in the left upper lobe. Metastasis cannot be excluded. Urologist consulted
--- NOTE | 2024-11-29 13:40 | CON.PCM.ID_ITS ---
Assessment & Plan Assessment/Plan (1) Sepsis: QUALIFIERS: Severe sepsis shock status: with septic shock PLAN: sepsis - unclear cause. 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 Cxs pending. Recommend biopsy liver mass with sample sent for cxs and path/cytology. Cont empiric vanc/zosyn. Will follow, thank you HPI Consult Data Date of Consult: 11/29/24 HPI Narrative Reason for Consultation: sepsis HPI Narrative: RANJIT WYATT, is a 54 F with h/o aflutter, presented with 2-3 days fever, chills, fatigue, n/v. No new weight loss. Has felt more tired for a few weeks. Minimal dry cough, no abd pain, no diarrhea, no dysuria. No sick contacts. Full ROS performed and neg except as noted above. [facility] Medical History Hysterectomy planned Medical History no medical history Home Medications ?Medication ?Instructions ?Recorded ?Last Taken ?Type NK 11/28/24 Unknown History Allergy/AdvReac Type Severity Reaction Status Date / Time Sulfa (Sulfonamide Allergy Anaphylaxis Verified 11/28/24 14:20 Antibiotics) Family History (Updated 11/28/24 @ 21:10 by Marissa Whitman) Father Hypertension Brother Advanced cirrhosis of liver Family History no significant family his Social History household members: spouse and children housing: house Smoking Status: Never smoker Physical Exam Const alert, oriented x3 and no apparent distress General Appearance: cooperative HEENT normocephalic and head/scalp atraumatic Eyes PERRL and EOMs intact bilaterally Neck supple and No nodes Resp normal air movement and clear to auscultation bilaterally Cardio regular rate and regular rhythm GI soft to palpation, non-tender and non-distended Extremity General Extremity: Negative for edema Skin no rashes or lesions noted Skin Narrative: slight jaundice Neuro CN's II-XII intact bilaterally Lab / Micro Data Attestation: I reviewed the patient's lab results. 11/29/24 02:48 11/29/24 02:48 Labs: Laboratory Results - last 24 hr 11/28/24 14:25: WBC 18.3 H, RBC 4.31, Hgb 11.5 L, Hct 33.9 L, MCV 78.7 L, MCH 26.7 L, MCHC 33.9, RDW Std Deviation 41.9, RDW Coeff of Marbin 14.6, Plt Count 308, MPV 8.5, Immature Gran % (Auto) 0.500, Neut % (Auto) 88.1 H, Lymph % (Auto) 6.2 L, Wilkes % (Auto) 4.9, Eos % (Auto) 0.1, Baso % (Auto) 0.2, Absolute Neuts (auto) 16.1 H, Absolute Lymphs (auto) 1.14, Nucleated RBC % 0, PT 15.4 H, INR 1.2, APTT 31.5, Sodium 132 L, Potassium 3.5, Chloride 99, Carbon Dioxide 17.4 L, Anion Gap 15, BUN 21 H, Creatinine 0.81, Estim Creat Clear Calc 92.40, Est GFR (MDRD) Non- Af 87, BUN/Creatinine Ratio 26.0 H, Glucose 143 H, Lactic Acid 2.7 H*, Calcium 9.0, Total Bilirubin 0.62, AST 47 H, ALT 53 H, Alkaline Phosphatase 128 H, T roponin T High Sens 124 H*, Total Protein 8.1, Albumin 3.5, Globulin 4.6 H, A lbumin/Globulin Ratio 0.8 L 11/28/24 16:28: Troponin T Hi Sens 2 Hr 145 H*, Urine Color Yellow, Urine Clarity Clear, Urine pH 6.0, Ur Specific Abbot 1.010, Urine Protein 30 H, Urine Glucose (UA) Normal, Urine Ketones Negative, Urine Occult Blood 25 H, Urine Nitrite Negative, Urine Bilirubin Negative, Urine Urobilinogen Normal, Ur Leukocyte Esterase 25 H, Urine RBC 0-5 SEEN, Urine WBC 0-5 SEEN, Ur Squamous Epith Cells 0-5 SEEN, Urine Bacteria 0 SEEN, Hyaline Casts 0-5 SEEN, Fine Granular Casts 0-5 SEEN, Urine Mucus 0 SEEN 11/28/24 19:19: Troponin T Hi Sens 4Hr 93 H* 11/28/24 19:26: Lactic Acid 1.1 11/29/24 02:48: WBC 21.1 H, RBC 3.80 L, Hgb 10.1 L, Hct 30.6 L, MCV 80.5 L, MCH 26.6 L, MCHC 33.0, RDW Std Deviation 43.8, RDW Coeff of Marbin 15.0 H, Plt Count 283, MPV 9.1, Immature Gran % (Auto) 0.900, Neut % (Auto) 89.4 H, Lymph % (Auto) 5.4 L, Wilkes % (Auto) 4.0, Eos % (Auto) 0.0, Baso % (Auto) 0.3, Absolute Neuts (auto) 18.8 H, Absolute Lymphs (auto) 1.13, Nucleated RBC % 0, Differential Comment SCANNED, Sodium 134, Potassium 3.1 L, Chloride 107, Carbon Dioxide 18.5 L, Anion Gap 9, BUN 12, Creatinine 0.57 L, Estim Creat Clear Calc 118.72, Est GFR (MDRD) Non-Af 109, BUN/Creatinine Ratio 20.9 H, Glucose 186 H, Calcium 7.9, Magnesium 1.5, Total Bilirubin 1.21, AST 62 H, ALT 75 H, Alkaline Phosphatase 115 H, Total Protein 7.1, Albumin 3.0 L, Globulin 4.1, Albumin/Globulin Ratio 0.7 L, TSH 0.842 11/29/24 08:25: Retic Count 0.97, Immature Retic Fraction 11.30, Retic Hgb Equivalent 26.0 L, Phosphorus 1.8 L, Magnesium 1.5, Direct Bilirubin 0.76 H, P rocalcitonin 17.70 H, LAUREN-1 Antibody TNP 11/29/24 08:25: LAUREN-1 Antibody TNP, Sm (Clark) Antibody TNP 11/29/24 08:25: Sm (Clark) Antibody TNP, BUILDING APPRAISER Antibody TNP 11/29/24 08:25: BUILDING APPRAISER Antibody TNP, Scl-70 Scleroderma Ab TNP 11/29/24 08:25: Scl-70 Scleroderma Ab TNP, Antichromatin Antibodies TNP 11/29/24 08:25: Antichromatin Antibodies TNP, Centromere B Antibody TNP 11/29/24 08:25: Centromere B Antibody TNP Micro: Microbiology 11/28/24 22:25 Mucosa - Nasopharyngeal Respiratory Panel (PCR) - Final 11/28/24 14:44 Mucosa - Nose SARS-CoV-2, Influenza & RSV (PCR) - Final Rhythm Strip Rhythm Strip: Atrial flutter 2-1 conduction Rate: 140 Imaging Radiology Impression Chest X-Ray 11/28/24 14:29 IMPRESSION: Cardiomegaly without overt failure. Reading [facility] Echocardiogram 11/28/24 19:41 Interpretation Summary The LV systolic function is normal. EF is 65 %. Mild tricuspid valve insufficiency. Mild (1+) mitral valve insufficiency. Ordering Physician: Xena Harris Referring Physician: Haja Sow Performed By: Jessica Davila, RDCS, RVT Liver Ultrasound 11/28/24 19:50 IMPRESSION: 1. No acute finding. 2. Hepatic steatosis with mild hepatomegaly. 3. Suggestion of an echogenic mass in the right hepatic lobe measuring up to 5.6 cm in size. Recommend multiphase liver CT or MRI for further evaluation, which may be performed on a non-emergent basis. 4. Irregular appearance of the right kidney with multiple cysts and calcifications, as could be seen with a cystic kidney disease or xanthogranulomatous pyelonephritis. Recommend attention on the follow-up exam, or dedicated imaging performed sooner if clinically warranted. Reading Location: [facility] Chest X-Ray 11/28/24 19:55 IMPRESSION: Right-sided central line tip terminates at the expected location of the right atrium. Reading Location: [facility] Abdomen/Pelvis CT 11/29/24 12:02 IMPRESSION: 1. Hypodense lesion of the right hepatic lobe measuring up to 7.4 cm. Associated septal enhancement and ill-defined margins, concerning for neoplastic process. 2. 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 An abandoned pigtail catheter is noted in the renal pelvis and proximal ureter. 3. Fecal retention in the colon consistent with constipation. Reading Location[facility] Chest CT 11/29/24 12:02 IMPRESSION: 1. Partially visualized hypodense lesion of the liver with peripheral enhancement measuring up to 7.[address] or MRI of the abdomen with contrast is recommended using hepatic mass protocol. 2. Bilateral pleural effusions with compressive atelectasis. 12 mm and 5 mm nodules in the left upper lobe. Metastasis can not be excluded. Reading Location: [facility]
--- NOTE | 2024-11-29 16:13 | CON.PCM.GI_ITS ---
HPI Consult Data Date of Consult: 11/29/24 HPI Narrative Reason for Consultation: Abnormal CT scan HPI Narrative: RANJIT WYATT, is a 54-year-old female who denies significant past medical history presents with multiple somatic complaints. She states she has not been feeling well for the last few weeks. She has occasional lightheadedness. No chest pain, no shortness of breath. She did note that today she started feeling heart palpitations and a racing heartbeat. She denies any dysuria or hematuria. She has had an occasional cough as well. It was today that she started experiencing fever and chills which brought her to the emergency department. She was originally diagnosed with supraventricular tachycardia thought to be secondary to urosepsis. She is currently being seen by infectious disease and urology. I was consulted to see her due to a large liver mass. US/Liver 1. No acute finding. 2. Hepatic steatosis with mild hepatomegaly 3. Suggestion of an echogenic mass in the right hepatic lobe measuring up to 5.6 cm in size. Recommend multiphase liver CT or MRI for further evaluation, which may be performed on a non-emergent basis. 4. Irregular appearance of the right kidney with multiple cysts and calcifications, as could be seen with a cystic kidney disease or xanthogranulomatous pyelonephritis. Recommend attention on the follow-up exam, or dedicated imaging performed sooner if clinically warranted. CT/CT Abd/Pelvis W/WO Contrast 1. Hypodense lesion of the right hepatic lobe measuring up to 7.4 cm. Associated septal enhancement and ill-defined margins, concerning for neoplastic process. 2. 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 An abandoned pigtail catheter is noted in the renal pelvis and proximal ureter. 3. Fecal retention in the colon consistent with constipation. She has no history of liver disease. No family history liver disease. She has no history of chronic viral hepatitis. She has been sick over the last several weeks. She has no history of recreational drug abuse. She has no previous history of cirrhosis. She has no family history or personal history of autoimmune disease affecting liver. [facility] Medical History Hysterectomy planned Medical History no medical history Home Medications ?Medication ?Instructions ?Recorded ?Last Taken ?Type NK 11/28/24 Unknown History Allergy/AdvReac Type Severity Reaction Status Date / Time Sulfa (Sulfonamide Allergy Anaphylaxis Verified 11/28/24 14:20 Antibiotics) Family History Father Hypertension Brother Advanced cirrhosis of liver Family History no significant family his Social History household members: spouse and children housing: house Smoking Status: Never smoker ROS Constitutional Constitutional: Denies fatigue, fever(s), poor appetite, weight gain or weight loss Gastrointestinal Gastrointestinal: Denies belching, bloating, change in bowel habits, change in stool character, chewing difficulty, coffee ground emesis, constipation, cramping, diarrhea, dyspepsia, dysphagia, early satiety, excessive flatus, fecal incontinence, heartburn, hematemesis, hematochezia, hemorrhoids, loose stools, melena, nausea, odynophagia, rectal bleeding, tenesmus, vomiting or weight changes Physical Exam Const alert, oriented x3, no apparent distress and healthy appearing General Appearance: cooperative GI normal to inspection, nondistended, normoactive bowel sounds, soft to palpation, non-tender and non-distended Percussion: normal to percussion Rectal Exam: deferred Lab / Micro Data 11/29/24 02:48 11/29/24 02:48 Labs: Laboratory Results - last 24 hr 11/28/24 16:28: Troponin T Hi Sens 2 Hr 145 H*, Urine Color Yellow, Urine Clarity Clear, Urine pH 6.0, Ur Specific Alexander 1.010, Urine Protein 30 H, Urine Glucose (UA) Normal, Urine Ketones Negative, Urine Occult Blood 25 H, Urine Nitrite Negative, Urine Bilirubin Negative, Urine Urobilinogen Normal, Ur Leukocyte Esterase 25 H, Urine RBC 0-5 SEEN, Urine WBC 0-5 SEEN, Ur Squamous Epith Cells 0-5 SEEN, Urine Bacteria 0 SEEN, Hyaline Casts 0-5 SEEN, Fine Granular Casts 0-5 SEEN, Urine Mucus 0 SEEN 11/28/24 19:19: Troponin T Hi Sens 4Hr 93 H* 11/28/24 19:26: Lactic Acid 1.1 11/29/24 02:48: WBC 21.1 H, RBC 3.80 L, Hgb 10.1 L, Hct 30.6 L, MCV 80.5 L, MCH 26.6 L, MCHC 33.0, RDW Std Deviation 43.8, RDW Coeff of Marbin 15.0 H, Plt Count 283, MPV 9.1, Immature Gran % (Auto) 0.900, Neut % (Auto) 89.4 H, Lymph % (Auto) 5.4 L, Troup % (Auto) 4.0, Eos % (Auto) 0.0, Baso % (Auto) 0.3, Absolute Neuts (auto) 18.8 H, Absolute Lymphs (auto) 1.13, Nucleated RBC % 0, Differential Comment SCANNED, Sodium 134, Potassium 3.1 L, Chloride 107, Carbon Dioxide 18.5 L, Anion Gap 9, BUN 12, Creatinine 0.57 L, Estim Creat Clear Calc 118.72, Est GFR (MDRD) Non-Af 109, BUN/Creatinine Ratio 20.9 H, Glucose 186 H, Calcium 7.9, Magnesium 1.5, Total Bilirubin 1.21, AST 62 H, ALT 75 H, Alkaline Phosphatase 115 H, Total Protein 7.1, Albumin 3.0 L, Globulin 4.1, Albumin/Globulin Ratio 0.7 L, TSH 0.842 11/29/24 08:25: Retic Count 0.97, Immature Retic Fraction 11.30, Retic Hgb Equivalent 26.0 L, Phosphorus 1.8 L, Magnesium 1.5, Direct Bilirubin 0.76 H, P rocalcitonin 17.70 H, LAUREN-1 Antibody TNP 11/29/24 08:25: LAUREN-1 Antibody TNP, Sm (Clark) Antibody TNP 11/29/24 08:25: Sm (Clark) Antibody TNP, AIR CARRIER OPERATIONS INSPECTOR Antibody TNP 11/29/24 08:25: AIR CARRIER OPERATIONS INSPECTOR Antibody TNP, Scl-70 Scleroderma Ab TNP 11/29/24 08:25: Scl-70 Scleroderma Ab TNP, Antichromatin Antibodies TNP 11/29/24 08:25: Antichromatin Antibodies TNP, Centromere B Antibody TNP 11/29/24 08:25: Centromere B Antibody TNP Micro: Microbiology 11/28/24 22:25 Mucosa - Nasopharyngeal Respiratory Panel (PCR) - Final 11/28/24 14:44 Mucosa - Nose SARS-CoV-2, Influenza & RSV (PCR) - Final Rhythm Strip Rhythm Strip: Atrial flutter 2-1 conduction Rate: 140 Imaging Radiology Impression Echocardiogram 11/28/24 19:41 Interpretation Summary The LV systolic function is normal. EF is 65 %. Mild tricuspid valve insufficiency. Mild (1+) mitral valve insufficiency. Ordering Physician: Xena Harris Referring Physician: Haja Sow Performed By: Jessica Davila RDCS, RVT Liver Ultrasound 11/28/24 19:50 IMPRESSION: 1. No acute finding. 2. Hepatic steatosis with mild hepatomegaly. 3. Suggestion of an echogenic mass in the right hepatic lobe measuring up to 5.6 cm in size. Recommend multiphase liver CT or MRI for further evaluation, which may be performed on a non-emergent basis. 4. Irregular appearance of the right kidney with multiple cysts and calcifications, as could be seen with a cystic kidney disease or xanthogranulomatous pyelonephritis. Recommend attention on the follow-up exam, or dedicated imaging performed sooner if clinically warranted. Reading Location: [facility] Chest X-Ray 11/28/24 19:55 IMPRESSION: Right-sided central line tip terminates at the expected location of the right atrium. Reading Location: [facility] Abdomen/Pelvis CT 11/29/24 12:02 IMPRESSION: 1. Hypodense lesion of the right hepatic lobe measuring up to 7.4 cm. Associated septal enhancement and ill-defined margins, concerning for neoplastic process. 2. 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 An abandoned pigtail catheter is noted in the renal pelvis and proximal ureter. 3. Fecal retention in the colon consistent with constipation. Reading Location: [facility]- Chest CT 11/29/24 12:02 IMPRESSION: 1. Partially visualized hypodense lesion of the liver with peripheral enhancement measuring up to 7.[address] or MRI of the abdomen with contrast is recommended using hepatic mass protocol. 2. Bilateral pleural effusions with compressive atelectasis. 12 mm and 5 mm nodules in the left upper lobe. Metastasis can not be excluded. Reading Location: [facility]- Assessment & Plan Assessment/Plan (1) Liver mass: PLAN: The differential diagnosis for liver mass and a woman without any significant chronic liver disease would be cholangiocarcinoma, fibroid laminar hepatocellular carcinoma, abscess. The patient did undergo liver biopsy of the mass. Alpha-fetoprotein, CA 19-9 and CEA are pending Charges/Coding Visit Charges Inpatient E&M: 43444 Init Hosp L3
[2024-11-29] MEDS: KCL 40mEq in 0.9% NS 40 MEQ/1,000 ML IV.SOLN 100 MEQ IV (18:33)
[2024-11-29] MEDS: 0.9% Saline Lock 10 ML Syringe IV ×2 (21:21→21:22)
--- NOTE | 2024-11-29 22:50 | EKG12_ITS ---
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 Rate : 113 BPM Atrial Rate : 113 BPM P-R Int : 168 ms QRS Dur : 86 ms QT Int : 330 ms P-R-T Axes : 26 37 41 degrees QTcB Int : 452 ms Sinus tachycardia Junctional ST depression, probably normal Borderline ECG When compared with ECG of 29-Nov-2024 07:13, AR interval has decreased Confirmed by Kem Jackson ([id number]), art editor SHIRIN SEGUNDO ([id number]) on 12/02/2024 11:55:37 AM Referred By: Confirmed By: Kem Jackson
[2024-11-29] MEDS: Nitroglycerin (INPATIENT USE) 0.4 MG TAB.SUBL SL ×2 (22:58→23:04)
[2024-11-29] MEDS: MethylPREDNISolone 125 MG/2 ML Vial IV (23:02)
[2024-11-29 23:07] LABS: Allen Test Positive; Base Excess -5 mmol/L (-2 to +2); Bicarbonate 23.5 mmol/L (22-26); Blood Gas Specimen Type ART; Mode Not entered; O2 Delivery Device NRB; PO2 102 mmHG (75-100); SITE R Radial; SO2 96 % (95-99); Total Carbon Dioxide 25 mmol/L; pCO2 61.2 mmHg (35-45); pH 7.19 (7.35-7.45)
[2024-11-29] MEDS: hydrALAZINE 20 MG/ML Vial 10 MG IV (23:07)
--- NOTE | 2024-11-29 23:10 | RAD_ITS ---
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 COMPARISON: CT chest 11/29/2024 FINDINGS: Hardware: Right IJ catheter with the tip in the right atrium. Heart: Mild cardiomegaly. Lungs: Bilateral interstitial thickening. Bibasilar atelectasis. No pneumothorax. No pleural effusion. Findings suggestive of interstitial edema. Bones: The bones are unremarkable. Other: RAD/Chest 1 View (Portable) IMPRESSION: See above Reading Location: [facility]
[2024-11-29 23:11] LABS: Absolute Lymphocyte Count 5.33 X10^3/uL (0.83-4.51); Basophil# 0.05 X10^3/uL; Basophil% 0.2 % (0-1); Eosinophil# 0.03 X10^3/uL; Eosinophils% 0.1 % (0-5); Hematocrit 33.8 % (37-47); Hemoglobin 10.8 g/dL (12.0-15.0); Lymphocyte # 5.33 X10^3/ul (0.83-4.51); Lymphocyte % 17.3 % (19-41); Mean Corpuscular Hgb 26.4 pg (27.0-32.0); Mean Corpuscular Volume 82.6 fL (81-99); Mean Platelet Vol. 8.8 fl (6.2-12.0); Monocyte# 0.44 X10^3/uL; Monocyte% 1.4 % (0-10); NRBC Flagged by Analyzer 0 % (0-5); Neutrophil # 23.98 X10^3/uL (2.7-7.7); Neutrophil % 77.7 % (47-70); POSITIVE COUNT YES; POSITIVE DIFFERENTIAL YES; POSITIVE MORPHOLOGY YES; Platelet Count 276 K/mm3 (150-450); RBC Distribution Width CV 15.6 % (11.6-14.6); Red Blood Count 4.09 M/mm3 (4.2-5.4)
--- NOTE | 2024-11-29 23:27 | PN.HOSP_ITS ---
Hospitalist Note Rapid Response was called at ~22:45 hours after patient suddenly developed SOB with respiratory distress and chest tightness with toxic appearance. Ms. Wyatt reported her chest tightness was ~7/10 and she was then treated with SL NTG with improvement. She had an elevated blood pressure of 202/160 mmHg that was treated with hydralazine IV x 1 with subsequent decrease to 146/72 mmHg. She then had an ABG that revealed pH 7.19/ PCO2 61.2 mmHg/ PO2 102 mmHg/ HCO3 23.5 mmol/L @ 96% on 15L NRB. She was noted to be audibly wheezing in all lung wan so she was treated with nebulizers and methylprednisolone IV x 1. She was then transferred to the ICU for ongoing care on BiPAP with repeat ABG pending in 1 hour. She had a CXR that reveled pulmonary edema so she was additionally treated with furosemide 40 mg IV once with an new NT pro-BNP II of 6,781pg/mL and a mildly elevated troponin T of 114 ng/L. She also spiked a temperature of 104 degrees Fahrenheit while on IV vancomycin and IV piperacillin-tazobactam so IV levofloxacin was added with review of CT scan done earlier in the day showing evidence of Emphysematous Pyelonephritis with urology consult placed at ~1:30 PM on November 29, 2024 with formal evaluation apparently still pending. Once patient stabilized a new CT scan of the abdomen and pelvis was ordered which revealed fragment of a Right ureteral stent is present in the Right renal pelvis and proximal ureter with diffuse Right renal cortical thinning, atrophy, asymmetrcially delayed nephrograms with marked dilation of the renal collecting system which contain multiple air-fluid levels with surrounding perinephric stranding and edema and appearance of urothelial thickening and periureteral stranding overall concerning for obstruction with superimposed gas formation, recommend urology consult. PROFILER HAND was updated with plan with call placed to urology on patient's declining condition and consistently ominous CT results. Unfortunately, urologist now recommends transfer with patient in septic shock on Levophed drip which will make transferring more difficult, especially at ~4:00 AM on the weekend. Nevertheless, call was placed to transfer patient to [facility]; where she had her Right ureteral stent placed in 2018 which they apparently could not retrieve - but they refused due to her medical complexity and severe acuity - as did [facility]. Call will now be placed to [facility]. [facility] Imaging Services [address] [place] [address] Chest 1 View (Portable) MR#: [id number] Acct: [id number] Name: RANJIT WYATT Rep #: [id number] : 1970 F 54 From: Bart Frias MD PCP: Dr. 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 COMPARISON: CT chest 11/29/2024 FINDINGS: Hardware: Right IJ catheter with the tip in the right atrium. Heart: Mild cardiomegaly. Lungs: Bilateral interstitial thickening. Bibasilar atelectasis. No pneumot horax. No pleural effusion. Findings suggestive of interstitial edema. Bones: The bones are unremarkable. Other: RAD/Chest 1 View (Portable) IMPRESSION: See above Reading Location: [facility] CC: Dr. Jose David David DO; Dr. Haja Sow DO ~ Hoisting Engineer Pile Driving: Signed [facility] Imaging Services [address] [place] [address] Abdomen/Pelvis W IV Cont ONLY MR#: [id number] Acct: [id number] Name: RANJIT WYATT Rep #: [id number] : 1970 F 54 From: Bar Caro MD PCP: Dr. Haja Sow DO Status: ADM IN Study: Abdomen/Pelvis W IV Cont ONLY Date of Exam: 11/30/24 Exam# [id number] Ordering Dr: Jose David David DO PROCEDURE: ABDOMEN/PELVIS W IV CONT ONLY 11/30/2024 REASON FOR EXAM: SEPSIS REFRACTORY TO ANTIBIOTICS TECHNIQUE: Abdomen and pelvis CT with intravenous contrast. Coronal and Sagittal reconstruction series were provided. PATIENT PREPARATION: Per protocol ORAL CONTRAST TYPE: None. CONTRAST: 98 cc Isovue 370 IV One or more dose reduction techniques were used (e.g., Automated exposure control, adjustment of the mA and/or kV according to patient size, use of iterative reconstruction technique. RADIATION DOSE SUMMARY: CTDlvol: 21.02 mGy DLP: 1262.76 mGycm COMPARISON: November 29, 2024 FINDINGS: Partially imaged small right larger than left bilateral pleural effusions with adjacent partial passive collapse, atelectasis. Heterogeneous near 8 cm mass within the liver, see preceding multiphasic CT for further detail. Suggestion of possible mild hepatic steatosis. The adrenal glands, pancreas, left kidney and spleen appear within limits. There is a small amount of abdominopelvic free fluid with small amount of fluid at the gallbladder fossa which is nonspecific. The gallbladder otherwise appears within limits. Fragment of a right ureteral stent is present in the right renal prior pelvis and proximal ureter. There is diffuse right renal cortical thinning, atrophy, delayed nephrograms with marked dilation of the renal collecting system which contains multiple air-fluid levels with surrounding perinephric stranding and edema and appearance of urothelial thickening and periureteral stranding overall concerning for obstruction with superimposed gas-forming infection, recommend urology consult. Approximately 1 cm from the right UVJ is a small right ureteral stone for example coronal 72. Pantoja within a partially collapsed bladder. Abdominal aorta appears within limits. Shotty appearing retroperitoneal and ria hepatis nodes may be reactive No bowel dilation or free air. Normal caliber appendix without secondary signs. Small amount of abdominopelvic free fluid greatest at the left pelvis axial 109. Mild anasarca. Visualized osseous structures appear within limits. CT/Abdomen/Pelvis W IV Cont ONLY IMPRESSION: Fragment of a right ureteral stent is present in the right renal prior pelvis and proximal ureter. There is diffuse right renal cortical thinning, atrophy, asymmetrically delayed nephrograms with marked dilation of the renal collecting system which contains multiple air-fluid levels with surrounding perinephric stranding and edema and appearance of urothelial thickening and periureteral stranding overall concerning for obstruction with superimposed gas- forming infection, recommend urology consult. Approximately 1 cm from the right UVJ is a small right ureteral stone for example coronal 72. Partially imaged small right larger than left bilateral pleural effusions with adjacent partial passive collapse, atelectasis. Small amount of abdominopelvic free fluid greatest at the left pelvis axial 109. Mild anasarca. Heterogeneous near 8 cm mass within the liver, see preceding multiphasic CT for further detail. Reading Location: [id number] CC: Dr. Jose David David DO; Dr. Haja Sow DO ~ Hoisting Engineer Pile Driving: Signed
[2024-11-29 23:32] LABS: Phosphorus 1.9 mg/dL (2.7-4.5)
[2024-11-29] MEDS: Furosemide 40 MG/4 ML Vial IV (23:40)
[2024-11-29 23:46] LABS: Bedside Glucose 106 mg/dL (74-106)
[2024-11-29 23:46] LABS: Troponin T High Sensitivity 114 ng/L (<=14)
--- NOTE | 2024-11-29 23:46 | CPS ---
Critical ABG values. Dr. erazo aware.
[2024-11-29 23:47] LABS: ALB/GLOB Ratio 0.7 RATIO (0.9-2.4); AST(SGOT) 157 U/L (<=31); Alanine Aminotransfer ALT/SGPT 166 U/L (<=34); Albumin, Serum 2.8 g/dL (3.5-5.0); Alkaline Phosphatase 193 U/L (35-104); Anion Gap 7 (5-15); BUN 13 mg/dL (4-19); BUN/Creat Ratio 15.6 RATIO (10-20); Calcium,Total 7.9 mg/dL (7.6-11.0); Carbon Dioxide 19.4 mmol/L (21.0-32.0); Chloride 110 mmol/L (98-108); Creatinine, Serum 0.84 mg/dL (0.70-1.20); EST Glomerular Filtration Rate 84 (>60); Estimated Creatinine Clearance 80.56 ml/min (50-250); Globulin 4.1 g/dL (2.2-4.2); Glucose 147 mg/dL (70-99); Potassium 4.5 mmol/L (3.3-5.1); Protein, Total 6.9 g/dL (5.9-8.4); Sodium Level 137 mmol/L (133-145)
[2024-11-29 23:54] LABS: Pro- Brain NATRIURETIC PEPTIDE 6781 pg/mL (<=900)
[2024-11-29 23:55] LABS: Differential Indicated SCAN CRITERIA MET; White Blood Count 30.8 K/mm3 (4.4-11.0)
[2024-11-29 23:56] LABS: Differential Comment SCANNED
[2024-11-30] VITALS (37 sets, daily range): BP systolic 66–148; BP diastolic 35–93; PULSE 66–113; RESP 12–42; TEMP 36.1–40.4; O2SAT 92–100; BMI 35.9
[2024-11-30 00:25] LABS: Allen Test Positive; Base Excess -6 mmol/L (-2 to +2); Bicarbonate 18.9 mmol/L (22-26); Blood Gas Specimen Type ART; Mode Not entered; O2 Delivery Device BiPAP; PEEP 10; PIP 16; PO2 35 mmHG (75-100); SITE R Brach; SO2 68 % (95-99); Total Carbon Dioxide 20 mmol/L; pCO2 29.8 mmHg (35-45); pH 7.41 (7.35-7.45)
--- NOTE | 2024-11-30 00:34 | NURSING ---
This RN and the unit charge nurse came into patients room to do a central line dressing change on the patients IJ. Upon entering the room, the patient conversed with the charge nurse and I, appearing to be in no distress. While preparing the supplies, the patient appeared to be having increased work of breathing. This RN grabbed a pulse ox and high flow tubing. Initially the patient was 89% on 2L and a minute later rapidly began declining. Requiring 15L high flow. This RN then called an FABRICATION ENGINEER at [id number].
--- NOTE | 2024-11-30 01:21 | CT_ITS ---
PROCEDURE: ABDOMEN/PELVIS W IV CONT ONLY 11/30/2024 REASON FOR EXAM: SEPSIS REFRACTORY TO ANTIBIOTICS TECHNIQUE: Abdomen and pelvis CT with intravenous contrast. Coronal and Sagittal reconstruction series were provided. PATIENT PREPARATION: Per protocol ORAL CONTRAST TYPE: None. CONTRAST: 98 cc Isovue 370 IV One or more dose reduction techniques were used (e.g., Automated exposure control, adjustment of the mA and/or kV according to patient size, use of iterative reconstruction technique. RADIATION DOSE SUMMARY: CTDlvol: 21.02 mGy DLP: 1262.76 mGycm COMPARISON: November 29, 2024 FINDINGS: Partially imaged small right larger than left bilateral pleural effusions with adjacent partial passive collapse, atelectasis. Heterogeneous near 8 cm mass within the liver, see preceding multiphasic CT for further detail. Suggestion of possible mild hepatic steatosis. The adrenal glands, pancreas, left kidney and spleen appear within limits. There is a small amount of abdominopelvic free fluid with small amount of fluid at the gallbladder fossa which is nonspecific. The gallbladder otherwise appears within limits. Fragment of a right ureteral stent is present in the right renal prior pelvis and proximal ureter. There is diffuse right renal cortical thinning, atrophy, delayed nephrograms with marked dilation of the renal collecting system which contains multiple air-fluid levels with surrounding perinephric stranding and edema and appearance of urothelial thickening and periureteral stranding overall concerning for obstruction with superimposed gas-forming infection, recommend urology consult. Approximately 1 cm from the right UVJ is a small right ureteral stone for example coronal 72. Pantoja within a partially collapsed bladder. Abdominal aorta appears within limits. Shotty appearing retroperitoneal and ria hepatis nodes may be reactive No bowel dilation or free air. Normal caliber appendix without secondary signs. Small amount of abdominopelvic free fluid greatest at the left pelvis axial 109. Mild anasarca. Visualized osseous structures appear within limits. CT/Abdomen/Pelvis W IV Cont ONLY IMPRESSION: Fragment of a right ureteral stent is present in the right renal prior pelvis a nd proximal ureter. There is diffuse right renal cortical thinning, atrophy, asymmetrically delayed nephrograms with marked dila tion of the renal collecting system which contains multiple air-fluid levels with surrounding perinephric stranding and edema and appearance of urothelial thickening and periureteral stranding overall concerning for obstruction with superimposed gas -forming infection, recommend urology consult. Approximately 1 cm from the right UVJ is a small right ureteral stone for examp le coronal 72. Partially imaged small right larger than left bilateral pleural effusions with adjacent partial passive collapse, atelectasis. Small amount of abdominopelvic free fluid greatest at the left pelvis axial 109 . Mild anasarca. Heterogeneous near 8 cm mass within the liver, see preceding multiphasic CT for further detail. Reading Location: [id number]
[2024-11-30] MEDS: 0.9% Saline Lock 10 ML Syringe IV ×2 (01:42→05:44)
[2024-11-30] MEDS: levoFLOXacin IV 750 MG/150 ML BAG 100 MG IV (01:43)
[2024-11-30] MEDS: Potassium Phosphate 40 MM in 0.9% Normal Saline (500mL Bag) 500 ML 62.5 MM IV (01:43)
[2024-11-30 02:36] LABS: Troponin T High Sens 2 HR 202 ng/L (<=14)
[2024-11-30] MEDS: Norepinephrine 8 MG in 0.9% Normal Saline (250mL Bag) 242 ML 9.4 MG CONT INF ×2 (02:50→09:20)
[2024-11-30 04:07] LABS: AFP, Tumor Marker < 1.8 ng/mL (0.0-9.2); Carbohydrate AG 19-9 14 U/mL (0-35); Carcinoembryonic Antigen 0.9 ng/mL (0.0-4.7)
[2024-11-30 04:46] LABS: Troponin T High Sens 4 HR 155 ng/L (<=14)
--- NOTE | 2024-11-30 05:18 | NURSING ---
Call received from [facility]. They received the CT reports and face sheet and reached out to their urologist Dr. Solorio, who said that the patient was way too complex to come to [place], and that they would recommend the hospitalist look into a transfer to [facility] or [facility].
[2024-11-30] MEDS: Piperacil/Tazobactam 3.375 GM in 0.9% Normal Saline (50mL MB+) 50 ML IV (05:44)
[2024-11-30 05:52] LABS: Allen Test Positive; Base Excess -8 mmol/L (-2 to +2); Bicarbonate 17.5 mmol/L (22-26); Blood Gas Specimen Type ART; Mode Not entered; O2 Delivery Device BiPAP; PEEP 8; PIP 14; PO2 109 mmHG (75-100); RR 12; SITE L Radial; SO2 98 % (95-99); Total Carbon Dioxide 18 mmol/L; pCO2 29.4 mmHg (35-45); pH 7.38 (7.35-7.45)
[2024-11-30] MEDS: KCL 40mEq in 0.9% NS 40 MEQ/1,000 ML IV.SOLN 100 MEQ IV (05:58)
[2024-11-30 07:00] LABS: Vancomycin, Trough Level 21.6 ug/mL (5.0-15.0)
--- NOTE | 2024-11-30 07:15 | PCM.RX.CS ---
Consult Antibiotic Management Pharmacy has been consulted to manage selected antibiotic: Vancomycin Type of Intervention Type of Consult: Follow-up Labs Labs: Sodium 137 mmol/L (133-145) 11/29/24 23:00 Potassium 4.5 mmol/L (3.3-5.1) 11/29/24 23:00 Chloride 110 mmol/L (98-108) H 11/29/24 23:00 Carbon Dioxide 19.4 mmol/L (21.0-32.0) L 11/29/24 23:00 Anion Gap 7 (5-15) 11/29/24 23:00 BUN 13 mg/dL (4-19) 11/29/24 23:00 Creatinine 0.84 mg/dL (0.70-1.20) 11/29/24 23:00 Est GFR (MDRD) Non-Af 84 (>60) 11/29/24 23:00 BUN/Creatinine Ratio 15.6 RATIO (10-20) 11/29/24 23:00 Glucose 147 mg/dL (70-99) H 11/29/24 23:00 Vancomycin Trough 21.6 ug/mL (5.0-15.0) H 11/30/24 06:33 Microbiology Microbiology: Microbiology 11/28/24 22:25 Mucosa - Nasopharyngeal Respiratory Panel (PCR) - Final 11/28/24 14:44 Mucosa - Nose SARS-CoV-2, Influenza & RSV (PCR) - Final Pharmacy Plan for Drug Dosing Pharmacy Plan for Drug Dosing: VANCOMYCIN LEVEL RECEIVED Current Vancomycin Dose: 1750MG Q12 Number of Doses Received: 3 Vancomycin Level: 21.6 mg/dL Hours Since Last Dose: 9.5 Renal Function: SCr 0.84 mg/dL, CrCl 80 mL/min Renal Function Trend: slight increase in SCr Lab/Micro: blood and urine cx pending Vancomycin Plan/Comments: 9.5 hour trough was slightly supratherapeutic at 21.6 mg/dL (goal 15-20). However, dose was given almost an hour late and trough was drawn early so it was only a 9.5 hour trough instead of closer to 12 hours, therefore it was not an accurate trough. Will give normal dose this morning and re-time trough draw before tonight's dose. Pending Level: 11/30/24 @ 1930 Pharmacy Service will continue to monitor and adjust dosing as required.
--- NOTE | 2024-11-30 07:26 | CON.PCM.UR_ITS ---
HPI Consult Data Date of Consult: 11/30/24 HPI Narrative Reason for Consultation: sepsis HPI Narrative: RANJIT WYATT, is a 54 F who presents to hospital with sepsis, apparently has a stent fragment in the right kidney? large mass in liver she has an XGP kidney with worsening wbc failure to respond to antibiotics, she will need an urgent nephrotomy tube placed in the right kidney as soon as possible, eventually probably need a nephrectomy for XGP kidney. she needs to be transferred to [facility] for further manegment as no interventional radiology avaliable at [facility]. call me w questions, [facility] Medical History Hysterectomy planned Medical History no medical history Home Medications ?Medication ?Instructions ?Recorded ?Last Taken ?Type NK 11/28/24 Unknown History Allergy/AdvReac Type Severity Reaction Status Date / Time Sulfa (Sulfonamide Allergy Anaphylaxis Verified 11/28/24 14:20 Antibiotics) Family History Father Hypertension Brother Advanced cirrhosis of liver Family History no significant family his Social History household members: spouse and children housing: house Smoking Status: Never smoker Lab / Micro Data 11/29/24 23:00 11/29/24 23:00 Labs: Laboratory Results - last 24 hr 11/29/24 08:25: Retic Count 0.97, Immature Retic Fraction 11.30, Retic Hgb Equivalent 26.0 L, Phosphorus 1.8 L, Magnesium 1.5, Direct Bilirubin 0.76 H, Tumor Marker AFP < 1.8, Carcinoembryonic Ag 0.9, CA 19-9 Antigen 14, CA 125 Antigen 23.0, Procalcitonin 17.70 H, LAUREN-1 Antibody TNP 11/29/24 08:25: LAUREN-1 Antibody TNP, Sm (Clark) Antibody TNP 11/29/24 08:25: Sm (Clark) Antibody TNP, INDUSTRIAL ORGANIZATIONAL PSYCHOLOGIST Antibody TNP 11/29/24 08:25: INDUSTRIAL ORGANIZATIONAL PSYCHOLOGIST Antibody TNP, Scl-70 Scleroderma Ab TNP 11/29/24 08:25: Scl-70 Scleroderma Ab TNP, Antichromatin Antibodies TNP 11/29/24 08:25: Antichromatin Antibodies TNP, Centromere B Antibody TNP 11/29/24 08:25: Centromere B Antibody TNP 11/29/24 22:46: POC Glucose 106 11/29/24 23:00: WBC 30.8 H*, RBC 4.09 L, Hgb 10.8 L, Hct 33.8 L, MCV 82.6, MCH 26.4 L, MCHC 32.0, RDW Std Deviation 47.0 H, RDW Coeff of Marbin 15.6 H, Plt Count 276, MPV 8.8, Immature Gran % (Auto) 3.300 H, Neut % (Auto) 77.7 H, Lymph % (Auto) 17.3 L, Freestone % (Auto) 1.4, Eos % (Auto) 0.1, Baso % (Auto) 0.2, Absolute Neuts (auto) 24.0 H, Absolute Lymphs (auto) 5.33 H, Nucleated RBC % 0, Differential Comment SCANNED, Diff Path Review November, Sodium 137, Potassium 4.5, Chloride 110 H, Carbon Dioxide 19.4 L, Anion Gap 7, BUN 13, Creatinine 0.84, Estim Creat Clear Calc 80.56, Est GFR (MDRD) Non-Af 84, BUN/Creatinine Ratio 15.6, Glucose 147 H, Calcium 7.9, Phosphorus 1.9 L, Magnesium 2.0, Total Bilirubin 1.20, AST 157 H, ALT 166 H, Alkaline Phosphatase 193 H, Troponin T High Sens 114 H* D, NT pro BNP II 6781 H, Total Protein 6.9, Albumin 2.8 L, Globulin 4.1, Albumin/Globulin Ratio 0.7 L 11/30/24 01:30: Troponin T Hi Sens 2 Hr 202 H* 11/30/24 04:07: Troponin T Hi Sens 4Hr 155 H* 11/30/24 06:33: Vancomycin Trough 21.6 H ABG Data ABG results: ABG 11/29/24 11/30/24 11/30/24 23:04 00:20 05:45 Specimen Type ART ART ART Sample Site R Radial R Brach L Radial pH 7.19 L* 7.41 7.38 Bicarbonate Actual 23.5 18.9 L 17.5 L Total CO2 25 20 18 Base Excess -5 L -6 L -8 L O2 Saturation 96 68 L 98 O2 % 15.0 60.0 30.0 ABG pCO2 61.2 H 29.8 L 29.4 L ABG pO2 102 H 35 L* 109 H Ramón Test Positive Positive Positive Respiration Rate 12 O2 Delivery Device NRB BiPAP BiPAP Vent Mode Not entered Not entered Not entered POC PEEP 10 8 Peak Inspir Pressure 16 14 Crit Call To/Read Back Yes Yes Rhythm Strip Rhythm Strip: Atrial flutter 2-1 conduction Rate: 140 Imaging Radiology Impression Echocardiogram 11/28/24 19:41 Interpretation Summary The LV systolic function is normal. EF is 65 %. Mild tricuspid valve insufficiency. Mild (1+) mitral valve insufficiency. Ordering Physician: Xena Harris Referring Physician: Haja Sow Performed By: Jessica Davila, RDCS, RVT Abdomen/Pelvis CT 11/29/24 12:02 IMPRESSION: 1. Hypodense lesion of the right hepatic lobe measuring up to 7.4 cm. Associated septal enhancement and ill-defined margins, concerning for neoplastic process. 2. 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 An abandoned pigtail catheter is noted in the renal pelvis and proximal ureter. 3. Fecal retention in the colon consistent with constipation. Reading Location: [facility] Chest CT 11/29/24 12:02 IMPRESSION: 1. Partially visualized hypodense lesion of the liver with peripheral enhancement measuring up to 7.[address] or MRI of the abdomen with contrast is recommended using hepatic mass protocol. 2. Bilateral pleural effusions with compressive atelectasis. 12 mm and 5 mm nodules in the left upper lobe. Metastasis can not be excluded. Reading Location: [facility] Chest X-Ray 11/29/24 23:10 IMPRESSION: See above [facility] Abdomen/Pelvis CT 11/30/24 01:21 IMPRESSION: Fragment of a right ureteral stent is present in the right renal prior pelvis and proximal ureter. There is diffuse right renal cortical thinning, atrophy, asymmetrically delayed nephrograms with marked dilation of the renal collecting system which contains multiple air-fluid levels with surrounding perinephric stranding and edema and appearance of urothelial thickening and periureteral stranding overall concerning for obstruction with superimposed gas- forming infection, recommend urology consult. Approximately 1 cm from the right UVJ is a small right ureteral stone for example coronal 72. Partially imaged small right larger than left bilateral pleural effusions with adjacent partial passive collapse, atelectasis. Small amount of abdominopelvic free fluid greatest at the left pelvis axial 109. Mild anasarca. Heterogeneous near 8 cm mass within the liver, see preceding multiphasic CT for further detail. Reading Location: [id number]
--- NOTE | 2024-11-30 08:56 | DS.PCM_ITS ---
Providers Date of Admission: 11/28/24 Date of Discharge: 11/30/24 Primary Care Physician: Dr. Haja Sow, Consultations 11/28/24 21:41 Consult: Cardiology Routine Consulting Provider: Kem Jackson Reason for Consult: aflutter, s/p cardioversion EMERGENT Consult: No Notified: Yes Date Notified: 11/28/24 Time Notified: 16:39 Method of Notification: ED Physician Initiated Consult: Meter/Relay Craftsman / Pulmonary Medicine Routine Consulting Provider: Intensivists/Pulmonary Med Reason for Consult: Sepsis of unknown source, also a flutter cardioverted in ED EMERGENT Consult: No MD Notified: Yes Date Notified: 11/28/24 Time Notified: 07:46 Method of Notification: Answering Service 11/29/24 08:04 Consult: Infectious Disease Routine Consulting Provider: Bar Taylor Reason for Consult: Septic shock, source unclear EMERGENT Consult: No MD Notified: Yes Date Notified: 11/29/24 Time Notified: 08:07 Method of Notification: Text 11/29/24 13:25 Consult: Urology Routine Consulting Provider: Salas Salgado Reason for Consult: emphysematous right kidney, source of sepsis? EMERGENT Consult: No MD Notified: Yes Date Notified: 11/29/24 Time Notified: 13:25 Method of Notification: Verbal 11/29/24 15:15 Consult: Gastroenterology Routine Consulting Provider: Anette Gastroenterangella Reason for Consult: HCC? with mets to lung EMERGENT Consult: No MD Notified: Yes Date Notified: 11/29/24 Time Notified: 15:16 Method of Notification: Verbal Reason For Visit: SEPSIS, AFLUTTER W/RVR Diagnosis Discharge Diagnosis (1) Liver mass: Status: Acute Code(s): R16.0 - Hepatomegaly, not elsewhere classified Plan 54-year-old female was brought to ED by EMS for generalized weakness, malaise for the last few weeks, fever 103 Fahrenheit by squad, heart rate 197/min. No chest pain tightness or shortness of breath. She also headache on Monday night, one-time nausea and vomiting in the ED. On day of admission she started feeling palpitation. # Sepsis of unclear source: Patient being admitted in ICU. Meter/Relay Craftsman consulted. -Patient febrile, tachycardic, tachypneic, leukocytosis, hypotensive with evidence of organ dysfunction including hypotension, elevated lactic acid of 2.7. Patient required IV fluid as per sepsis protocol but did not require vasopressor yet. Chest x-ray UA does not show source of infection. Respiratory panel negative. Triple PCR for SARS-CoV-2, flu and RSV are negative Patient has very slight elevation of AST and ALT of 47 and 53 respectively and alk phos 128, AST and ALT were slightly elevated in 2023 as well -RUQ sonogram shows mild hepatomegaly, echogenic mass of 5.6 cm in right hepatic lobe. 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 11/29: Had fever 101.5 Fahrenheit in the morning. Chest abdomen pelvis CT ordered as source of infection remains oblivious. 11/30: Repeat last night CT abdomen with IV contrast was done which shows diffuse right renal cortical thinning, atrophy and multiple air-fluid in right renal collecting system with marked dilatation, surrounding perinephric stranding, edema and urothelial thickening and periureteral stranding, overall concerning for superimposed gas-forming infection. It was also reported 1 cm, right UVJ, small right ureteral stone. Urology consult was done at 7:15 AM and recommended transfer to tertiary care. Broad-spectrum antibiotics while awaiting culture and sensitivity data. Patient on IV Levophed, meropenem, vancomycin and Levaquin. # A flutter with 2-1 conduction/SVT - Patient initially with heart rate of 180, when slowed with adenosine cardiology reviewed and thought it was consistent with a flutter with 2-1 block -Pt ultimately cardioverted in the ED and presently in NSR - Cardiology consult, cardiology already evaluated patient in ED [employer] Clocks Repairer recommended no anticoagulation unless atrial flutter recurs after resolution of sepsis. Started on baby aspirin. 11/29: In the morning today, rapid response was called around 655 for atrial tachycardia. Different EKGs were done. First EKG shows atrial flutter, irregular pattern with PVCs. P waves hidden in T waves. Patient received adenosine 6 milligram, then 12 mg and then metoprolol 5 mg and patient converted to sinus tachycardia with first AV block, heart rate ended 3.5. -TSH 0.842. Evaluated by resource paraprofessional. Recommended metoprolol 25 mg Q6 hourly by resource paraprofessional Dr. Kem duron. Was seen by Dr. Rubio in the morning 11/30 currently sinus rhythm. Last night was sinus tachycardia # Elevated troponin Troponins 124, 145, 93. 2D echo shows EF 65% with mild TR. Mild MR. - Troponin is now down trended Right hepatic lobe mass concerning for malignancy: Triple phase CT abdomen and CT chest reviewed. There is hypodense lesion of right hepatic lobe about 7.4 cm which enhances on arterial phase and washout on venous phase. Associated septal enhancement and ill-defined margins therefore concerning for neoplastic process. CT chest with IV contrast shows bilateral pleural effusion with compressive atelectasis in 12 mm and 5 mm nodules in the left upper lobe. Metastasis cannot be excluded. 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 Medications at Discharge Home Medications NK 11/28/24 Physical Exam Narrative Seen and examined Rapid response was called at 2245 hrs. after patient suddenly developed shortness of breath, respiratory distress, chest tightness with toxic appearance as described by nighttime hospitalist doctor. Patient had elevated BP 202/160 and hydralazine was given. Subsequently patient had ABG which revealed pH 7.19/pCO2 61.2 NAD at 15 L of normal breathing with audible wheezing and was given nebulizer and IV Solu-Medrol. She was transferred to ICU and put on BiPAP that relieved her respiratory distress. Her chest x-ray showed pulmonary edema and was given IV Lasix 40 mg with elevated proBNP. She had a fever temp 104 Fahrenheit and IV antibiotic was changed to include vancomycin and IV Zosyn and that was subsequently modified to include IV Levaquin for double Pseudomonas coverage for emphysematous right pyelonephritis. Urologist recommended transfer to tertiary care [facility], level 1 high priority. Patient was excepted there. In meantime patient also abdominal pressure when he was Levophed drip currently at 20 mics per minute. Patient got the bed there and is being transferred to air flight/helicopter. When I saw the patient, she denies fever or chills and feels little better than last night Physical exam: General: Alert, Oriented x3, Cooperative. HEENT: Atraumatic, PERRLA, EOMI, Normocephalic. Oral: Oral mucosa dry. No Gingival or Mucosal Lesions/ Ulcerations Neck: Supple, No JVD, Negative Carotid Bruits Chest wall/Lungs: Air entry diminished in bilateral lung bases. No crepitation/rhonchi Cardiovascular: Atrial flutter/atrial tachycardia, Normal S1,S2, No M/G/R Abdomen: Bowel Sounds Present, Soft, Non Tender, Non-Distended. Liver enlarged : Urine turbid colored. Renal angle tenderness. No suprapubic tenderness. Extremities: No edema, Capillary Refill Less than 3 Seconds Skin: No rashes, No breakdown Musculoskeletal: No Tenderness to Palpation of Joints or Extremities Neurological: Cranial nerves II-XII grossly intact, DTR 2+/4. No acute focal neurological deficit. Psych/Mental Status: Flat affect Weight / BMI Weight Weight: 195 lb 1.745 oz Body Mass Index (BMI) 35.9 ABG / Lab / Microbiology Data 11/29/24 23:00 11/29/24 23:00 Laboratory: Laboratory Results - last 24 hr 11/29/24 08:25: Tumor Marker AFP < 1.8, Carcinoembryonic Ag 0.9, CA 19-9 Antigen 14, CA 125 Antigen 23.0 11/29/24 22:46: POC Glucose 106 11/29/24 23:00: WBC 30.8 H*, RBC 4.09 L, Hgb 10.8 L, Hct 33.8 L, MCV 82.6, MCH 26.4 L, MCHC 32.0, RDW Std Deviation 47.0 H, RDW Coeff of Marbin 15.6 H, Plt Count 276, MPV 8.8, Immature Gran % (Auto) 3.300 H, Neut % (Auto) 77.7 H, Lymph % (Auto) 17.3 L, Cowley % (Auto) 1.4, Eos % (Auto) 0.1, Baso % (Auto) 0.2, Absolute Neuts (auto) 24.0 H, Absolute Lymphs (auto) 5.33 H, Nucleated RBC % 0, Differential Comment SCANNED, Diff Path Review November foll, Sodium 137, Potassium 4.5, Chloride 110 H, Carbon Dioxide 19.4 L, Anion Gap 7, BUN 13, Creatinine 0.84, Estim Creat Clear Calc 80.56, Est GFR (MDRD) Non-Af 84, BUN/Creatinine Ratio 15.6, Glucose 147 H, Calcium 7.9, Phosphorus 1.9 L, Magnesium 2.0, Total Bilirubin 1.20, AST 157 H, ALT 166 H, Alkaline Phosphatase 193 H, Troponin T High Sens 114 H* D, NT pro BNP II 6781 H, Total Protein 6.9, Albumin 2.8 L, Globulin 4.1, Albumin/Globulin Ratio 0.7 L 11/30/24 01:30: Troponin T Hi Sens 2 Hr 202 H* 11/30/24 04:07: Troponin T Hi Sens 4Hr 155 H* 11/30/24 06:33: Vancomycin Trough 21.6 H Microbiology: Microbiology 11/28/24 16:28 Urine, Clean Catch Urine Culture - Final Culture exhibits no growth. 11/28/24 22:25 Mucosa - Nasopharyngeal Respiratory Panel (PCR) - Final 11/28/24 14:44 Mucosa - Nose SARS-CoV-2, Influenza & RSV (PCR) - Final ABG: ABG 11/29/24 11/30/24 11/30/24 23:04 00:20 05:45 Specimen Type ART ART ART Sample Site R Radial R Brach L Radial pH 7.19 L* 7.41 7.38 Bicarbonate Actual 23.5 18.9 L 17.5 L Total CO2 25 20 18 Base Excess -5 L -6 L -8 L O2 Saturation 96 68 L 98 O2 % 15.0 60.0 30.0 ABG pCO2 61.2 H 29.8 L 29.4 L ABG pO2 102 H 35 L* 109 H Ramón Test Positive Positive Positive Respiration Rate 12 O2 Delivery Device NRB BiPAP BiPAP Vent Mode Not entered Not entered Not entered POC PEEP 10 8 Peak Inspir Pressure 16 14 Crit Call To/Read Back Yes Yes Radiography Diagnostic Testing: Radiology Impression Abdomen/Pelvis CT 11/29/24 12:02 IMPRESSION: 1. Hypodense lesion of the right hepatic lobe measuring up to 7.4 cm. Associated septal enhancement and ill-defined margins, concerning for neoplastic process. 2. 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 An abandoned pigtail catheter is noted in the renal pelvis and proximal ureter. 3. Fecal retention in the colon consistent with constipation. Reading Location: [facility] Chest CT 11/29/24 12:02 IMPRESSION: 1. Partially visualized hypodense lesion of the liver with peripheral enhancement measuring up to 7.[address] or MRI of the abdomen with contrast is recommended using hepatic mass protocol. 2. Bilateral pleural effusions with compressive atelectasis. 12 mm and 5 mm nodules in the left upper lobe. Metastasis can not be excluded. Reading Location: [facility] Chest X-Ray 11/29/24 23:10 IMPRESSION: See above Reading Location[facility] Abdomen/Pelvis CT 11/30/24 01:21 IMPRESSION: Fragment of a right ureteral stent is present in the right renal prior pelvis and proximal ureter. There is diffuse right renal cortical thinning, atrophy, asymmetrically delayed nephrograms with marked dilation of the renal collecting system which contains multiple air-fluid levels with surrounding perinephric stranding and edema and appearance of urothelial thickening and periureteral stranding overall concerning for obstruction with superimposed gas- forming infection, recommend urology consult. Approximately 1 cm from the right UVJ is a small right ureteral stone for example coronal 72. Partially imaged small right larger than left bilateral pleural effusions with adjacent partial passive collapse, atelectasis. Small amount of abdominopelvic free fluid greatest at the left pelvis axial 109. Mild anasarca. Heterogeneous near 8 cm mass within the liver, see preceding multiphasic CT for further detail. Reading Location: [id number] D/C Instructions DC O2, CPAP, BIPAP Needs Home O2 Discharge instructions: No DC home with Oxygen: No Meaningful Use Info Meaningful Use Meaningful Use Diagnoses (Choose all that apply): None applicable Ischemic Stroke Statin Dosing Therapy Reference: STATIN DOSE THERAPY REFERENCE: * Patients > 75 years receive moderate or high dose statin therapy. * Patients 75 years or YOUNGER should receive HIGH intensity statin dose unless contraindicated. You will be required to document reason for non-treatment if statin daily dose does not meet guidelines. HIGH DOSE STATIN THERAPY DAILY Atorvastatin > than or = to 40 mg Rosuvastatin > than or = to 20 mg Amlodipine + Atorvastatin > than or = to 2.5/40 mg Ezetimibe + Simvastatin 10/80 mg Simvastatin 80mg Discharge Plan Admission Admit Date/Time: 11/28/24 19:07 Attending Provider: Lenny Royal Primary Care Provider: Haja Sow Consulting Providers: Xena Harris; Kem Jackson; Bar Taylor; Yoan Mathias; Thai Godoy; Dickson Andino; Jose Mays; Jose David Morales; Jaden Thompson; Piero Magallon; Anna Gannon; Basil Camacho; Carlos Hall; Quan Kidd; Mary Fields; Loc Short; Daniella Ely; Tal Roach; Nicolás Morgan; Julio Cullen; Emigdio Fan; Keila Gerard; Pepe Oneal; Rivera Avery; Wai Oleary; Baldo Fay; Salas Salgado Discharge Orders/Prescriptions Prescriptions: No Action NK Referrals / Follow Up: Haja Sow DO [Primary Care Provider] - Disposition Discharge Orders: Discharge Patient (Routine); Ordered 11/30/24 Ordered By: Dr. Lenny Royal Charges/Coding Visit Charges Inpatient E&M: 89574 Disch Hosp >30min
--- NOTE | 2024-11-30 09:23 | PCA ---
[facility] gave an eta of 50 minutes
[2024-11-30] MEDS: Vancomycin HCl 1,750 MG in 0.9% Normal Saline (500mL Bag) 500 ML 250 MG IV (10:15)
[2024-11-30 14:08] LABS: Anti-Smooth Muscle ABS 6 Units (0-19); GGTP 33 IU/L (0-60)
--- NOTE | 2024-11-30 14:22 | NURSING ---
0945 report called to [facility] G53 RN. 1000 [facility] mobile unit present in unit. report given 1030 pt tx to [facility]
[2024-12-02 16:08] LABS: ANTINUCLEAR ANTIBODIES DIRECT Positive (Negative); Anti-Centromere B Ab <0.2 AI (0.0-0.9); Anti-Chromatin <0.2 AI (0.0-0.9); Anti-Jo <0.2 AI (0.0-0.9); Anti-Mitochondrial AB <20.0 Units (0.0-20.0); Anti-Scleroderma-70 AB <0.2 AI (0.0-0.9); Anti-dsDNA Ab 41 IU/mL (0-9); Anti-dsDNA Ab 42 IU/mL (0-9); RNP Ab 0.2 AI (0.0-0.9); SJOGREN'S Anti-SS-A test < 0.2 AI (0.0-0.9); SJOGREN'S Anti-SS-B test < 0.2 AI (0.0-0.9); Smith Ab <0.2 AI (0.0-0.9)
[2024-12-03 09:08] LABS: CCP IgG Antibodies 9 units (0-19); Cytoplasmic Ab (C-ANCA) <1:20 titer (Neg:<1:20); Perinuclear Ab (P-ANCA) <1:20 titer (Neg:<1:20)
[2024-12-12 10:42] LABS: Pathologist Review Reviewed
== END 2024-11-30 10:30 | disposition other institution (70) | DRG 871 ==
LOC: ED 17:00 → ICU 19:32 → PCU 11-29 17:13 → ICU 11-30 01:12
PROVIDERS: Internal Medicine; Internal Medicine Critical Care Medicine; Admitting Provider Internal Medicine; Emergency Provider Emergency Medicine; PCP Family Medicine; Visit Provider Internal Medicine
DX: A41.9 Sepsis, unspecified organism (principal); R65.21 Severe sepsis with septic shock; J81.0 Acute pulmonary edema; I47.10 Supraventricular tachycardia, unspecified; I48.92 Unspecified atrial flutter; J98.11 Atelectasis; N11.1 Chronic obstructive pyelonephritis; N20.1 Calculus of ureter; I16.0 Hypertensive urgency; R16.0 Hepatomegaly, not elsewhere classified; K76.89 Other specified diseases of liver; I95.9 Hypotension, unspecified; I44.0 Atrioventricular block, first degree; N28.1 Cyst of kidney, acquired; I49.3 Ventricular premature depolarization; R79.89 Other specified abnormal findings of blood chemistry; R91.8 Other nonspecific abnormal finding of lung field; Z96.0 Presence of urogenital implants; Z87.828 Personal history of other (healed) physical injury and trauma
CPT/HCPCS: 36600; 51702; 71045; 71260; 74177; 74178; 76705; 80053; 80202; 81001; 82105; 82248; 82378; 82803; 82962; 82977; 83516; 83605; 83735; 83880; 84100; 84145; 84443; 84484; 85025; 85045; 85610; 85730; 86037; 86038; 86200; 86225; 86235; 86301; 86304; 87040; 87077; 87086; 87186; 87631; 87633; 92960; 93005; 93306; 94002; 94003; 97802; 99152; 99153; 99252; 99285; Q9957; Q9967; A4216; C1751; G0463; J0153; J1938; J2405